=== PATIENT | female | born 1990 | race Caucasian/White ===

== ENCOUNTER 2016-09-25 15:20 | Emergency (ER) | payer BC, OTHER ==
[2016-09-25 15:25] VITALS: TEMP 97.5
[2016-09-25] MEDS ORDERED: KETOROLAC 30 MG/ML 1 ML VIAL IVP STA (15:50)
[2016-09-25] MEDS ORDERED: NITROGLYCERIN OINT 1 INCH/GM PACKET TOPICAL STA (15:50)
[2016-09-25] MEDS ORDERED: ASPIRIN 81 MG CHEW PO STA (15:50)
[2016-09-25 16:24] LABS: Basophils # (A) 0.1 k/uL (0-0.2); Basophils % (A) 1 %; CH 29.2; CHCM 35.6; Eosinophils # (A) 0.1 k/uL (0-0.7); Eosinophils % (A) 1 %; HCT 39.8 % (34.0-46.0); HDW 2.94; Luc # (Auto) 0.23; Luc % (Auto) 3; Lymphocytes # (A) 2.7 k/uL (1.0-4.8); Lymphocytes % (A) 32 %; MCH 28.9 pg (25.0-35.0); MCHC 35.1 g/dL (31.0-37.0); MCV 82.3 fL (80.0-100.0); Mean Platelet Volume 7.4; Monocytes # (A) 0.4 k/uL (0-1.0); Monocytes % (A) 5 %; Neutrophils # (A) 5.1 k/uL (1.3-7.7); Neutrophils % (A) 59 %; RBC 4.83 m/uL (3.80-5.40); RDW 13.3 % (11.5-15.5); WBC 8.6 k/uL (3.8-10.6); WBC (Perox) 8.58
[2016-09-25 16:25] VITALS: RESP 18
[2016-09-25 16:36] LABS: ALT 47 U/L (9-52); AST 26 U/L (14-36); Alkaline Phosphatase 66 U/L (38-126); Anion Gap 10 mmol/L; Blood Urea Nitrogen 7 mg/dL (7-17); Calcium 9.4 mg/dL (8.4-10.2); Carbon Dioxide 26 mmol/L (22-30); Chloride 104 mmol/L (98-107); Glucose 87 mg/dL (74-99); Magnesium 1.9 mg/dL (1.6-2.3); Non-African American GFR(MDRD) >60 (>60 ml/min/1.73 sqM); Potassium 3.8 mmol/L (3.5-5.1); Sodium 140 mmol/L (137-145); Total Bilirubin 0.6 mg/dL (0.2-1.3); Total Protein 7.4 g/dL (6.3-8.2)
[2016-09-25 16:43] LABS: INR 0.9 (<1.2); Prothrombin Time 9.5 sec (9.0-12.0)
--- NOTE | 2016-09-25 16:43 | XR ---
EXAMINATION TYPE: XR chest 2V DATE OF EXAM: 09/25/2016 COMPARISON: 02/21/2016 HISTORY: Chest pain TECHNIQUE: Frontal and lateral views of the chest are obtained. FINDINGS: Heart and mediastinum are normal. Lungs are clear. Diaphragm is normal. Bony thorax is int act. IMPRESSION: Normal chest. No change.
[2016-09-25 16:48] LABS: Creatine Kinase 85 U/L (30-135)
[2016-09-25 16:56] LABS: Partial Thromboplastin Time 19.6 sec (22.0-30.0)
[2016-09-25 17:01] LABS: Creatine Kinase MB 0.9 ng/mL (0.0-2.4); Troponin I <0.012 ng/mL (0.000-0.034)
[2016-09-25 18:22] VITALS: BP 150/82; PULSE 75
--- NOTE | 2016-09-25 18:31 | ED ---
Chest Pain HPI - General Chief Complaint: Chest Pain Stated Complaint: Chest Pain Time Seen by Provider: 09/25/16 15:43 Source: patient Mode of arrival: ambulatory Limitations: no limitations - History of Present Illness Initial Comments: This 25-year-old white female presents with a complaint of some left chest and shoulder pain. This occurred just shortly prior to arrival while at work today. She states that the pain is worse when she turns her head to the left side or moves her chest or body in certain ways. She denies any difficulty in breathing diaphoresis or palpitations. She denies any previous similar incidents. There is no modifying factors. She denies any leg pain or swelling. There is no history of DVT or PE. No previous cardiac history. - Related Data Home Medications Medication Instructions Recorded Confirmed Levothyroxine Sodium [Synthroid] 50 mcg PO QAM 11/03/13 09/25/16 Previous Rx's Medication Instructions Recorded Ibuprofen [Motrin] 800 mg PO Q8H PRN #20 tab 09/25/16 Allergies Allergy/AdvReac Type Severity Reaction Status Date / Time betaine [Betaine] Allergy Contact Verified 09/25/16 15:57 Blisters chlorhexidine Allergy Contact Verified 09/25/16 15:57 [From Hibiclens] Blisters iodine Allergy Contact Verified 09/25/16 15:57 Blisters Review of Systems ROS Statement: Those systems with pertinent positive or pertinent negative responses have been documented in the HPI. ROS Other: All systems not noted in ROS Statement are negative. Past Medical History Past Medical History: Asthma, Thyroid Disorder Additional Past Medical History / Comment(s): severe chronic diarrhea for past several years History of Any Multi-Drug Resistant Organisms: None Reported Past Surgical History: Adenoidectomy, Cholecystectomy, Ear Surgery Additional Past Surgical History / Comment(s): fistula removed rt ear, umbilical reconstruction r/t non healing surgical wound Past Anesthesia/Blood Transfusion Reactions: No Reported Reaction Past Psychological History: No Psychological Hx Reported Smoking Status: Former smoker Past Alcohol Use History: Occasional Past Drug Use History: None Reported General Exam - General Exam Comments Initial Comments: GENERAL: The patient is well nourished and well hydrated. VITAL SIGNS: Heart rate, blood pressure, respiratory rate reviewed as recorded in nurse's notes. EYES: Pupils are round and reactive. Extraocular movements are intact. No conjunctival / lid redness or swelling. ENT: No external evidence of injury, swelling, or ecchymosis. Airway is patent. Throat is clear. NECK: Nontender. No swelling or evidence of injury. No subcutaneous emphysema. Trachea is midline. No thyroid mass. HEART: Regular rate and rhythm. Good peripheral pulses. LUNGS/CHEST: Breath sounds clear and equal bilaterally. No rales, rhonchi, or wheezes. No ecchymosis, subcutaneous emphysema. There is some tenderness present into the left chest. This is more in the superior lateral side with extension into the shoulder. ABDOMEN: Abdomen soft without tenderness. No palpable masses or organomegaly. No peritoneal signs. No abdominal wall swelling or ecchymosis. EXTREMITIES: There is some mild tenderness present into the left shoulder. There is no joint swelling. Normal muscle tone and function. No thoracolumbar tenderness. NEUROLOGIC: Sensation is grossly intact. Cranial nerve exam reveals face is symmetrical, tongue is midline, speech is clear. SKIN: No abrasions or ecchymosis is noted. No induration or masses noted. PSYCHIATRIC: Alert and oriented. Appropriate behavior and judgment. Limitations: no limitations Course Vital Signs 09/25/16 09/25/16 09/25/16 15:23 16:20 17:00 Temperature 97.5 F L Pulse Rate 74 73 84 Respiratory 22 18 18 Rate Blood Pressure 158/97 150/94 148/88 O2 Sat by Pulse 99 99 96 Oximetry 09/25/16 18:00 Temperature Pulse Rate 75 Respiratory 18 Rate Blood Pressure 150/82 O2 Sat by Pulse 96 Oximetry Chest Pain MDM - MDM The patient was seen and examined. All diagnostics were reviewed. EKG shows a normal sinus rhythm with no acute ST-T wave changes noted. The CA interval is 156, QRS duration is 76, and the QTc interval is 448. The cardiac profile labs and d-dimer are all essentially within normal limits. The chest x-ray is negative. The exact cause of her symptomatology is not definitively determine but overall is felt associates musculoskeletal nature. It certainly is reproducible. It is felt as though she is stable for discharge. She understands agrees with the following disposition and leaves in no distress. Disposition Clinical Impression: Chest wall pain Disposition: HOME SELF-CARE Condition: Good Instructions: Chest Wall Pain (ED) Prescriptions: Ibuprofen [Motrin] 800 mg PO Q8H PRN #20 tab PRN Reason: Pain Referrals: Sangeeta Mendiola MD [Primary Care Provider] - 1-2 days Time of Disposition: 18:30
== END 2016-09-25 18:35 | disposition home or self-care (01) ==
LOC: EC 15:20
DX: R07.89 Other chest pain (principal); M25.512 Pain in left shoulder; E07.9 Disorder of thyroid, unspecified; Z87.891 Personal history of nicotine dependence; Z79.899 Other long term (current) drug therapy; Z91.041 Radiographic dye allergy status; Z88.8 Allergy status to other drugs, medicaments and biological substances
CPT/HCPCS: 99285 ×2; 96374 ×2; 36415; 93005; 85379; 80053; 82550; 82553; 83735; 84484; 85025; 85610; 85730; 71020; J1885

== ENCOUNTER 2017-04-26 17:28 | Emergency (ER) | payer BC ==
[2017-04-26 17:46] VITALS: RESP 18
[2017-04-26] MEDS ORDERED: ACETAMINOPHEN TAB 500 MG TAB PO STA (20:02)
[2017-04-26] MEDS ORDERED: ONDANSETRON 4 MG/2 ML VIAL IVP STA (20:02)
[2017-04-26] MEDS ORDERED: SODIUM CHLORIDE 0.9% 1,000 ML IV STA (20:02)
[2017-04-26] MEDS ORDERED: IBUPROFEN 600 MG TAB PO STA (20:02)
--- NOTE | 2017-04-26 20:22 | ED ---
General Adult HPI - General Chief complaint: Fever Stated complaint: HANDS STUCK, LEGS NUMB AND PAIN Time Seen by Provider: 04/26/17 19:54 Source: patient, RN notes reviewed Mode of arrival: ambulatory Limitations: no limitations - History of Present Illness Initial comments: 26-year-old female presents to the emergency department with a chief complaint of fever. Patient states that she woke up this morning with a fever. Patient states she had 2 drinks last night had nausea vomiting and she will as well. Patient states she also has been taking to bilateral hands as well as she's had pain and radiation down her legs. Denies any injury or trauma last night. She denies any past. She states that she just feels off and she was concerned. Never had anything like this before. Patient states is not currently having any other symptoms.Patient denies any recent shortness of breath, chest pain, back pain, abdominal pain, dysuria or hematuria, constipation or diarrhea, headaches or visual changes, or any other current symptoms. - Related Data Home Medications Medication Instructions Recorded Confirmed Citalopram Hydrobromide [CeleXA] 40 mg PO HS 04/26/17 04/26/17 Etonogestrel [Nexplanon] 1 implant SQ [id number] 04/26/17 04/26/17 Previous Rx's Medication Instructions Recorded Ciprofloxacin HCl [Cipro] 500 mg PO Q12HR #14 tablet 04/26/17 Ibuprofen [Motrin] 600 mg PO Q6HR PRN #20 tab 04/26/17 Ondansetron Odt [Zofran ODT] 4 mg PO Q8HR PRN #20 tab 04/26/17 Allergies Allergy/AdvReac Type Severity Reaction Status Date / Time betaine [Betaine] Allergy Contact Verified 04/26/17 19:23 Blisters chlorhexidine Allergy Contact Verified 04/26/17 19:23 [From Hibiclens] Blisters gluten Allergy Unknown Verified 04/26/17 19:23 sutures Allergy Unknown Uncoded 04/26/17 19:23 Review of Systems ROS Statement: Those systems with pertinent positive or pertinent negative responses have been documented in the HPI. ROS Other: All systems not noted in ROS Statement are negative. Past Medical History Past Medical History: Asthma, Thyroid Disorder Additional Past Medical History / Comment(s): severe chronic diarrhea for past several years History of Any Multi-Drug Resistant Organisms: None Reported Past Surgical History: Adenoidectomy, Appendectomy, Cholecystectomy, Ear Surgery Additional Past Surgical History / Comment(s): fistula removed rt ear, umbilical reconstruction r/t non healing surgical wound Past Anesthesia/Blood Transfusion Reactions: No Reported Reaction Past Psychological History: Anxiety, Bipolar, Depression Smoking Status: Former smoker Past Alcohol Use History: Occasional Past Drug Use History: None Reported General Exam - General Exam Comments Initial Comments: General: The patient is awake and alert, in no distress, and does not appear acutely ill. Eye: Pupils are equal, round and reactive to light, extra-ocular movements are intact; there is normal conjunctiva bilaterally. No signs of icterus. Ears, nose, mouth and throat: There are moist mucous membranes and no oral lesions. Neck: The neck is supple, there is no tenderness. Cardiovascular: There is a regular rate and rhythm. No murmur, rub or gallop is appreciated. Respiratory: Lungs are clear to auscultation, respirations are non-labored, breath sounds are equal. No wheezes, stridor, rales, or rhonchi. Gastrointestinal: Soft, non-distended, non-tender abdomen without masses or organomegaly noted. There is no rebound or guarding present. No CVA tenderness. Bowel sounds are unremarkable. Back: There is no tenderness to palpation in the midline. There is no obvious deformity. No rashes noted. Musculoskeletal: Normal ROM, no tenderness, There is no pedal edema. There is no calf tenderness or swelling. Sensation intact. Pulses equal bilaterally 2+. Neurological: CN II-XII intact, There are no obvious motor or sensory deficits. Coordination appears grossly intact. Speech is normal. Skin: Skin is warm and dry and no rashes or lesions are noted. Psychiatric: Cooperative, appropriate mood & affect, normal judgment. Limitations: no limitations Course Vital Signs 04/26/17 04/26/17 04/26/17 17:43 20:21 22:25 Temperature 101.1 F H 99.5 F Pulse Rate 116 H 112 H 96 Respiratory 18 18 18 Rate Blood Pressure 163/109 172/102 155/89 O2 Sat by Pulse 95 100 96 Oximetry Medical Decision Making - Medical Decision Making 26-year-old female presents with concern for numbness tingling to hands and feet. Associated with fever. At this time suspicion for UTI for fever along with GI-like complaints. We will put on Cipro for home. We discussed Motrin Tylenol. His numbness and tingling in hand complaints have improved drastically she now has full range of motion and states she is feeling much better. We did discuss follow-up return parameters. She stated she understood and she is in agreement this plan. She'll be discharged. - Lab Data Result diagrams: 04/26/17 20:20 04/26/17 20:20 Lab Results 04/26/17 04/26/17 04/26/17 Range/Units 18:10 20:20 20:20 WBC 15.1 H (3.8-10.6) k/uL RBC 5.52 H (3.80-5.40) m/uL Hgb 15.2 (11.4-16.0) gm/dL Hct 44.3 (34.0-46.0) % MCV 80.3 (80.0-100.0) fL MCH 27.4 (25.0-35.0) pg MCHC 34.2 (31.0-37.0) g/dL RDW 13.2 (11.5-15.5) % Plt Count 261 (150-450) k/uL Neutrophils % 88 % Lymphocytes % 8 % Monocytes % 4 % Eosinophils % 0 % Basophils % 0 % Neutrophils # 13.3 H (1.3-7.7) k/uL Lymphocytes # 1.1 (1.0-4.8) k/uL Monocytes # 0.6 (0-1.0) k/uL Eosinophils # 0.0 (0-0.7) k/uL Basophils # 0.0 (0-0.2) k/uL Sodium 142 (137-145) mmol/L Potassium 3.6 (3.5-5.1) mmol/L Chloride 104 (98-107) mmol/L Carbon Dioxide 23 (22-30) mmol/L Anion Gap 15 mmol/L BUN 17 (7-17) mg/dL Creatinine 0.50 L (0.52-1.04) mg/dL Est GFR (CKD-EPI)AfAm >90 (>60 ml/min/1.73 sqM) Est GFR (CKD-EPI)NonAf >90 (>60 ml/min/1.73 sqM) Glucose 99 (74-99) mg/dL Calcium 9.8 (8.4-10.2) mg/dL Phosphorus 3.5 (2.5-4.5) mg/dL Magnesium 1.5 L (1.6-2.3) mg/dL Total Bilirubin 1.0 (0.2-1.3) mg/dL AST 23 (14-36) U/L ALT 24 (9-52) U/L Alkaline Phosphatase 84 (38-126) U/L Total Protein 8.3 H (6.3-8.2) g/dL Albumin 4.9 (3.5-5.0) g/dL Urine Color Urine Appearance (Clear) Urine pH (5.0-8.0) Ur Specific [place] (1.001-1.035) Urine Protein (Negative) Urine Glucose (UA) (Negative) Urine Ketones (Negative) Urine Blood (Negative) Urine Nitrite (Negative) Urine Bilirubin (Negative) Urine Urobilinogen (<2.0) mg/dL Ur Leukocyte Esterase (Negative) Urine RBC (0-5) /hpf Urine WBC (0-5) /hpf Ur Squamous Epith Cells (0-4) /hpf Urine Bacteria (None) /hpf Urine Mucus (None) /hpf Urine HCG, Qual (Not Detectd) Urine Opiates Screen (NotDetected) Ur Oxycodone Screen (NotDetected) Urine Methadone Screen (NotDetected) Ur Propoxyphene Screen (NotDetected) Ur Barbiturates Screen (NotDetected) U Tricyclic Antidepress (NotDetected) Ur Phencyclidine Scrn (NotDetected) Ur Amphetamines Screen (NotDetected) U Methamphetamines Scrn (NotDetected) U Benzodiazepines Scrn (NotDetected) Urine Cocaine Screen (NotDetected) U Marijuana (THC) Screen (NotDetected) Influenza Type A RNA Not Detected (Not Detectd) Influenza Type B (PCR) Not Detected (Not Detectd) 04/26/17 04/26/17 Range/Units 20:20 20:20 WBC (3.8-10.6) k/uL RBC (3.80-5.40) m/uL Hgb (11.4-16.0) gm/dL Hct (34.0-46.0) % MCV (80.0-100.0) fL MCH (25.0-35.0) pg MCHC (31.0-37.0) g/dL RDW (11.5-15.5) % Plt Count (150-450) k/uL Neutrophils % % Lymphocytes % % Monocytes % % Eosinophils % % Basophils % % Neutrophils # (1.3-7.7) k/uL Lymphocytes # (1.0-4.8) k/uL Monocytes # (0-1.0) k/uL Eosinophils # (0-0.7) k/uL Basophils # (0-0.2) k/uL Sodium (137-145) mmol/L Potassium (3.5-5.1) mmol/L Chloride (98-107) mmol/L Carbon Dioxide (22-30) mmol/L Anion Gap mmol/L BUN (7-17) mg/dL Creatinine (0.52-1.04) mg/dL Est GFR (CKD-EPI)AfAm (>60 ml/min/1.73 sqM) Est GFR (CKD-EPI)NonAf (>60 ml/min/1.73 sqM) Glucose (74-99) mg/dL Calcium (8.4-10.2) mg/dL Phosphorus (2.5-4.5) mg/dL Magnesium (1.6-2.3) mg/dL Total Bilirubin (0.2-1.3) mg/dL AST (14-36) U/L ALT (9-52) U/L Alkaline Phosphatase (38-126) U/L Total Protein (6.3-8.2) g/dL Albumin (3.5-5.0) g/dL Urine Color Yellow Urine Appearance Cloudy H (Clear) Urine pH 6.0 (5.0-8.0) Ur Specific [place] 1.029 (1.001-1.035) Urine Protein 1+ H (Negative) Urine Glucose (UA) Negative (Negative) Urine Ketones Negative (Negative) Urine Blood Moderate H (Negative) Urine Nitrite Negative (Negative) Urine Bilirubin Negative (Negative) Urine Urobilinogen <2.0 (<2.0) mg/dL Ur Leukocyte Esterase Moderate H (Negative) Urine RBC 12 H (0-5) /hpf Urine WBC 16 H (0-5) /hpf Ur Squamous Epith Cells 13 H (0-4) /hpf Urine Bacteria Few H (None) /hpf Urine Mucus Many H (None) /hpf Urine HCG, Qual Not Detected (Not Detectd) Urine Opiates Screen Not Detected (NotDetected) Ur Oxycodone Screen Not Detected (NotDetected) Urine Methadone Screen Not Detected (NotDetected) Ur Propoxyphene Screen Not Detected (NotDetected) Ur Barbiturates Screen Not Detected (NotDetected) U Tricyclic Antidepress Not Detected (NotDetected) Ur Phencyclidine Scrn Not Detected (NotDetected) Ur Amphetamines Screen Not Detected (NotDetected) U Methamphetamines Scrn Not Detected (NotDetected) U Benzodiazepines Scrn Not Detected (NotDetected) Urine Cocaine Screen Not Detected (NotDetected) U Marijuana (THC) Screen Not Detected (NotDetected) Influenza Type A RNA (Not Detectd) Influenza Type B (PCR) (Not Detectd) - Radiology Data Radiology results: report reviewed, image reviewed Disposition Clinical Impression: Fever, UTI (urinary tract infection), Nausea & vomiting, Paresthesia Disposition: HOME SELF-CARE Condition: Stable Instructions: Paresthesia (ED), Urinary Tract Infection in Women (ED), Fever in Adults (ED) Additional Instructions: Please use medication as discussed. Please follow up with family doctor if symptoms have not improved over the next two days. Please return to the emergency room if your symptoms increase or worsen or for any other concerns. Prescriptions: Ciprofloxacin HCl [Cipro] 500 mg PO Q12HR #14 tablet Ibuprofen [Motrin] 600 mg PO Q6HR PRN #20 tab PRN Reason: Pain Ondansetron Odt [Zofran ODT] 4 mg PO Q8HR PRN #20 tab PRN Reason: Nausea Referrals: Sangeeta Mendiola MD [STAFF PHYSICIAN] - 1-2 days Time of Disposition: 22:46
[2017-04-26 20:32] LABS: Basophils % (A) 0 %; Eosinophils % (A) 0 %; HCT 44.3 % (34.0-46.0); HGB 15.2 gm/dL (11.4-16.0); Lymphocytes # (A) 1.1 k/uL (1.0-4.8); Lymphocytes % (A) 8 %; MCH 27.4 pg (25.0-35.0); MCHC 34.2 g/dL (31.0-37.0); MCV 80.3 fL (80.0-100.0); Mean Platelet Volume 7.5; Monocytes # (A) 0.6 k/uL (0-1.0); Monocytes % (A) 4 %; Neutrophils # (A) 13.3 k/uL (1.3-7.7); Neutrophils % (A) 88 %; Platelet Count 261 k/uL (150-450); RBC 5.52 m/uL (3.80-5.40); RDW 13.2 % (11.5-15.5); WBC 15.1 k/uL (3.8-10.6)
[2017-04-26 20:36] LABS: Appearance,Urine Cloudy (Clear); Bacteria,Urine Few /hpf; Bilirubin,Urine Negative (Negative); Blood,Urine Moderate (Negative); Color,Urine Yellow; Glucose,Urine (UA) Negative (Negative); Ketones,Urine Negative (Negative); Leukocyte Esterase,Urine Moderate (Negative); Mucus,Urine Many /hpf; Nitrite,Urine Negative (Negative); Protein,Urine 1+ (Negative); RBC,Urine 12 /hpf (0-5); Specific Gravity,Urine 1.029 (1.001-1.035); Squamous Epithelial Cell,Urine 13 /hpf (0-4); Urobilinogen,Urine <2.0 mg/dL (<2.0); WBC,Urine 16 /hpf (0-5)
[2017-04-26 20:41] LABS: ALT 24 U/L (9-52); AST 23 U/L (14-36); Albumin 4.9 g/dL (3.5-5.0); Alkaline Phosphatase 84 U/L (38-126); Anion Gap 15 mmol/L; Blood Urea Nitrogen 17 mg/dL (7-17); Calcium 9.8 mg/dL (8.4-10.2); Carbon Dioxide 23 mmol/L (22-30); Chloride 104 mmol/L (98-107); Glucose 99 mg/dL (74-99); Magnesium 1.5 mg/dL (1.6-2.3); Phosphorus 3.5 mg/dL (2.5-4.5); Potassium 3.6 mmol/L (3.5-5.1); Sodium 142 mmol/L (137-145); Total Protein 8.3 g/dL (6.3-8.2)
[2017-04-26 20:44] LABS: Amphetamine Screen,Urine Not Detected (NotDetected); Barbiturate Screen,Urine Not Detected (NotDetected); Benzodiazepines Screen,Urine Not Detected (NotDetected); Cocaine Screen,Urine Not Detected (NotDetected); Methadone Screen, Urine Not Detected (NotDetected); Opiate Screen,Urine Not Detected (NotDetected); Oxycodone Screen, Urine Not Detected (NotDetected); Phencyclidine Screen,Urine Not Detected (NotDetected); Tricyclic Antidepressant,Urine Not Detected (NotDetected); Urn Cannabinoid Scrn Not Detected (NotDetected)
--- NOTE | 2017-04-26 21:13 | XR ---
EXAMINATION TYPE: XR lumbar spine 2 or 3V DATE OF EXAM: 04/26/2017 CLINICAL HISTORY: Lower extremity weakness. TECHNIQUE: Frontal and lateral views of the lumbar spine were obtained. COMPARISON: None FINDINGS: There are 5 lumbar type vertebral bodies identified. The lumbar spine shows satisfactory alignment without evidence of acute fracture or dislocation. Vertebral body heights and disk space he ights are within normal limits. The overlying soft tissue appears unremarkable. Mild dextro scoliotic curvature of the lumbar spine may be positional in nature. Cholecystectomy clips are noted on the la teral view. IMPRESSION: No acute fracture or malalignment is seen in the lumbar spine.
--- NOTE | 2017-04-26 21:15 | CT ---
EXAMINATION TYPE: CT brain wo con DATE OF EXAM: 04/26/2017 COMPARISON: 12/12/2016 HISTORY: Numbness to hands and face. CT DLP: 1011.2 mGycm. Automated Exposure Control for Dose Reduction was Utilized. TECHNIQUE: CT scan of the head is performed without contrast. FINDINGS: There is no acute intracranial hemorrhage, mass effect, or midline shift identified. No suspicious extra-axial fluid collection. The ventricles and sulci are within normal limits in size. The globes are intact and the visualized sinuses are clear. IMPRESSION: No acute intracranial process.
--- NOTE | 2017-04-26 22:03 | XR ---
EXAMINATION TYPE: XR chest 2V DATE OF EXAM: 04/26/2017 COMPARISON: 12/10/2016 HISTORY: Nausea, vomiting, and chest pain TECHNIQUE: Frontal and lateral views of the chest are obtained. FINDINGS: There is no focal air space opacity, pleural effusion, or pneumothorax seen. The cardiac silhouette size is within normal limits. The osseous structures are intact. IMPRESSION: No acute cardiopulmonary process.
[2017-04-26] MEDS ORDERED: cefTRIAXone IN SWFI 1,000 MG/10 ML SYRINGE IVP STA (22:05)
[2017-04-26] MEDS ORDERED: MAGNESIUM SULFATE-D5W PMX 1 GM in DEXTROSE/WATER 1 100ML.BAG IVPB ONE (22:07)
[2017-04-26 22:27] VITALS: BP 155/89; PULSE 96; TEMP 99.5
== END 2017-04-26 23:45 | disposition home or self-care (01) ==
LOC: EC 17:28
DX: N39.0 Urinary tract infection, site not specified (principal); R11.2 Nausea with vomiting, unspecified; R20.2 Paresthesia of skin; R50.9 Fever, unspecified; F41.9 Anxiety disorder, unspecified; F31.9 Bipolar disorder, unspecified; Z87.891 Personal history of nicotine dependence; Z79.3 Long term (current) use of hormonal contraceptives; Z79.899 Other long term (current) drug therapy; Z91.048 Other nonmedicinal substance allergy status; Z88.8 Allergy status to other drugs, medicaments and biological substances
CPT/HCPCS: 36415; 80053; 83735; 84100; 85025; 81001; 81025; 80306; 87502; 72100; 71046; 70450; 99284; 96365; 96375 ×2; 96361 ×2; J2405; J0696; J3475

== ENCOUNTER 2018-05-19 13:31 | Emergency (ER) | payer BC ==
[2018-05-19 14:03] VITALS: TEMP 98.9
[2018-05-19] MEDS ORDERED: methylPREDNISolone SOD SUCCI 125 MG/2 ML VIAL IM ONE (14:40)
[2018-05-19] MEDS ORDERED: KETOROLAC 30 MG/ML 1 ML VIAL IM STA (14:40)
--- NOTE | 2018-05-19 15:36 | XR ---
EXAMINATION TYPE: XR Hip Complete LT DATE OF EXAM: 05/19/2018 CLINICAL HISTORY: Left hip pain TECHNIQUE: AP and frogleg views of the left hip are obtained. COMPARISON: None. FINDINGS: There is no acute fracture/dislocation evident in the left hip. The joint space in the le ft hip appears within normal limits. The overlying soft tissue appears unremarkable. IMPRESSION: There is no acute fracture or dislocation in the left hip.
--- NOTE | 2018-05-19 16:08 | ED ---
General Adult HPI - General Chief complaint: Extremity Injury, Lower Stated complaint: Hip Injury Time Seen by Provider: 05/19/18 14:25 Source: patient, RN notes reviewed Mode of arrival: wheelchair Limitations: no limitations - History of Present Illness Initial comments: 27-year-old female presents to the emergency department for chief complaint of left hip pain. Patient states she was sitting and went to stand up and felt a pop in her left hip. Patient states she has pain in the area now. Patient states it is painful to bend her hip or to walk on her hip. Patient denies fevers or chills. Patient denies falling or any other injuries. Patient has no other complaints at this time including shortness of breath, chest pain, abdominal pain, nausea or vomiting, headache, or visual changes. - Related Data Home Medications Medication Instructions Recorded Confirmed Citalopram Hydrobromide [CeleXA] 40 mg PO HS 04/26/17 04/26/17 Etonogestrel [Nexplanon] 1 implant SQ [id number] 04/26/17 04/26/17 Previous Rx's Medication Instructions Recorded Ciprofloxacin HCl [Cipro] 500 mg PO Q12HR #14 tablet 04/26/17 Ibuprofen [Motrin] 600 mg PO Q6HR PRN #20 tab 04/26/17 Ondansetron Odt [Zofran ODT] 4 mg PO Q8HR PRN #20 tab 04/26/17 Allergies Allergy/AdvReac Type Severity Reaction Status Date / Time betaine [Betaine] Allergy Contact Verified 05/19/18 14:03 Blisters chlorhexidine Allergy Contact Verified 05/19/18 14:03 [From Hibiclens] Blisters gluten Allergy Unknown Verified 05/19/18 14:03 sutures Allergy Unknown Uncoded 05/19/18 14:03 Review of Systems ROS Statement: Those systems with pertinent positive or pertinent negative responses have been documented in the HPI. ROS Other: All systems not noted in ROS Statement are negative. Past Medical History Past Medical History: Asthma, Thyroid Disorder Additional Past Medical History / Comment(s): severe chronic diarrhea for past several years History of Any Multi-Drug Resistant Organisms: None Reported Past Surgical History: Adenoidectomy, Appendectomy, Cholecystectomy, Ear Surgery Additional Past Surgical History / Comment(s): fistula removed rt ear, umbilical reconstruction r/t non healing surgical wound Past Anesthesia/Blood Transfusion Reactions: No Reported Reaction Past Psychological History: Anxiety, Bipolar, Depression Smoking Status: Former smoker Past Alcohol Use History: Occasional Past Drug Use History: None Reported General Exam Limitations: no limitations General appearance: alert, in no apparent distress Head exam: Present: atraumatic, normocephalic, normal inspection Eye exam: Present: normal appearance, PERRL, EOMI. Absent: scleral icterus, conjunctival injection, periorbital swelling ENT exam: Present: normal exam, mucous membranes moist Neck exam: Present: normal inspection, full ROM. Absent: tenderness, meningismus, lymphadenopathy Respiratory exam: Present: normal lung sounds bilaterally. Absent: respiratory distress, wheezes, rales, rhonchi, stridor Cardiovascular Exam: Present: regular rate, normal rhythm, normal heart sounds. Absent: systolic murmur, diastolic murmur, rubs, gallop, clicks Extremities exam: Present: normal inspection, tenderness (Generalized tenderness to the lateral aspect of the left hip), normal capillary refill (We refill less than 2 seconds, DP pulse 2+), other (Sensation intact in the left lower extremity. Patient unable to bear weight on the left hip, no ecchymosis intrusions or edema present.). Absent: full ROM (30 flexion of the left hip with 10 extension.), pedal edema, joint swelling, calf tenderness Back exam: Absent: vertebral tenderness Neurological exam: Present: alert, oriented X3, CN II-XII intact Psychiatric exam: Present: normal affect, normal mood Course Vital Signs 05/19/18 05/19/18 14:00 16:25 Temperature 98.9 F Pulse Rate 78 81 Respiratory 16 20 Rate Blood Pressure 186/105 170/100 O2 Sat by Pulse 99 96 Oximetry Medical Decision Making - Medical Decision Making 27 year old female presents for left hip pain. Patient went to stand and felt a pop in her left hip. No trauma or falls. Patient has 30 flexion of the left hip with 20 extension. Generalized tenderness noted to the lateral aspect of the left hip. Neurovascular intact. Patient unable to bear weight on the left hip. I did recommend urine before x-ray however patient refused this stating she has an IUD and is not sexually active and she would just look at the x-ray done. X-ray shows no acute fracture or dislocation. At this time possible ligamentous injury of the left hip. Patient will use crutches and follow-up with orthopedics. She'll return here if she has any worsening symptoms. Patient hypertensive in the emergency department. Likely related to pain. However patient will follow up with primary care for this. This is asymptomatic, denies any chest pain, shortness of breath, back pain, visual changes, headaches, lightheadedness. Disposition Clinical Impression: Hip pain, left Disposition: HOME SELF-CARE Condition: Good Instructions (If sedation given, give patient instructions): Hip Pain (ED) Additional Instructions: Please take Motrin and Tylenol for pain. If pain is severe take tramadol. Use crutches as needed. Follow up with primary care and orthopedics in 1-2 days. Return here to the emergency department if you have any worsening symptoms. Is patient prescribed a controlled substance at d/c from ED?: No Referrals: Dudley Sarmiento MD [STAFF PHYSICIAN] - 1-2 days Oskar Mcallister MD [STAFF PHYSICIAN] - 1-2 days Time of Disposition: 16:10
[2018-05-19] MEDS ORDERED: MORPHINE SULFATE 4 MG/ML SYRINGE IM STA (16:16)
[2018-05-19] MEDS ORDERED: traMADol 50 MG STARTER PACK 3 TAB BTL PO STA (16:17)
[2018-05-19 16:33] VITALS: BP 170/100; PULSE 81; RESP 20
== END 2018-05-19 16:42 | disposition home or self-care (01) ==
LOC: EC 13:31
DX: M25.552 Pain in left hip (principal); J45.909 Unspecified asthma, uncomplicated; E07.9 Disorder of thyroid, unspecified; F32.9 Major depressive disorder, single episode, unspecified; F41.9 Anxiety disorder, unspecified; Z87.891 Personal history of nicotine dependence; Z90.49 Acquired absence of other specified parts of digestive tract; Z98.890 Other specified postprocedural states; Z79.3 Long term (current) use of hormonal contraceptives; Z79.899 Other long term (current) drug therapy; Z88.8 Allergy status to other drugs, medicaments and biological substances; Z91.018 Allergy to other foods; Z91.048 Other nonmedicinal substance allergy status; X50.9XXA Other and unspecified overexertion or strenuous movements or postures, initial encounter
CPT/HCPCS: 73502; 99283; 96372 ×3; J2270; J2930; J1885

== ENCOUNTER 2018-08-31 15:46 | Emergency (ER) | payer BC, OTHER ==
[2018-08-31 16:42] VITALS: RESP 18
[2018-08-31] MEDS ORDERED: LABETALOL SYRINGE 5 MG/ML IVP STA (18:10)
--- NOTE | 2018-08-31 18:17 | ED ---
General Adult HPI - General Chief complaint: Recheck/Abnormal Lab/Rx Stated complaint: elevated BP Time Seen by Provider: 08/31/18 17:22 Source: patient Mode of arrival: ambulatory Limitations: no limitations - History of Present Illness Initial comments: Patient is a 27-year-old female presenting to the emergency Department with complaints of high blood pressure times today. Patient states she was in school today and they checked her blood pressure and it was in the 140s and 150s. Patient states a few other teachers checked her blood pressure and it kept going up in the 180s and then finally to 240s, so they told her to go to the ER. Patient states she recently restarted her Adipex medication yesterday after being off of that for over a month. Patient also admits to having increase in stress the last few days as her mother just recently had an aneurysm. Patient denies having fever, chills, chest pain, shortness of breath, headache, blurry vision. Patient denies any other complaints at this time. - Related Data Home Medications Medication Instructions Recorded Confirmed Phentermine HCl [Adipex-P] 37.5 mg PO DAILY 08/31/18 08/31/18 Previous Rx's Medication Instructions Recorded Hydrochlorothiazide 12.5 mg PO DAILY 14 Days #14 08/31/18 capsule Allergies Allergy/AdvReac Type Severity Reaction Status Date / Time betaine [Betaine] Allergy Contact Verified 08/31/18 17:36 Blisters chlorhexidine Allergy Contact Verified 08/31/18 17:36 [From Hibiclens] Blisters gluten Allergy Unknown Verified 08/31/18 17:36 latex Allergy CONTACT Verified 08/31/18 17:36 BLISTERS sutures Allergy Unknown Uncoded 08/31/18 16:42 Review of Systems ROS Statement: Those systems with pertinent positive or pertinent negative responses have been documented in the HPI. ROS Other: All systems not noted in ROS Statement are negative. Past Medical History Past Medical History: Asthma, Thyroid Disorder Additional Past Medical History / Comment(s): severe chronic diarrhea for past several years History of Any Multi-Drug Resistant Organisms: None Reported Past Surgical History: Adenoidectomy, Appendectomy, Cholecystectomy, Ear Surgery Additional Past Surgical History / Comment(s): fistula removed rt ear, umbilical reconstruction r/t non healing surgical wound Past Anesthesia/Blood Transfusion Reactions: No Reported Reaction Past Psychological History: Anxiety, Bipolar, Depression Smoking Status: Former smoker Past Alcohol Use History: Occasional Past Drug Use History: None Reported General Exam - General Exam Comments Initial Comments: GENERAL: Well-appearing, well-nourished and in no acute distress. HEAD: Atraumatic, normocephalic. EYES: Pupils equal round and reactive to light, extraocular movements intact, sclera anicteric, conjunctiva are normal. ENT: TMs normal, nares patent, oropharynx clear without exudates. Moist mucous membranes. NECK: Normal range of motion, supple without lymphadenopathy or JVD. LUNGS: Breath sounds clear to auscultation bilaterally and equal. No wheezes rales or rhonchi. HEART: Regular rate and rhythm without murmurs, rubs or gallops. ABDOMEN: Soft, nontender, normoactive bowel sounds. No guarding, no rebound. No masses appreciated. : Deferred EXTREMITIES: Normal range of motion, no pitting or edema. No clubbing or cyanosis. NEUROLOGICAL: Cranial nerves II through XII grossly intact. Normal speech, normal gait. PSYCH: Normal mood, normal affect. SKIN: Warm, Dry, normal turgor, no rashes or lesions noted. Limitations: no limitations Course Vital Signs 08/31/18 08/31/18 08/31/18 16:39 17:58 19:05 Temperature 98.7 F Pulse Rate 88 76 Respiratory 18 18 Rate Blood Pressure 176/115 182/108 186/113 O2 Sat by Pulse 100 97 Oximetry 08/31/18 20:28 Temperature 98 F Pulse Rate 91 Respiratory 18 Rate Blood Pressure 184/105 O2 Sat by Pulse 97 Oximetry EKG Findings - EKG Comments: EKG Findings:: Ventricular rate 74, MD interval 156, QTC 475. Normal sinus rhythm. No ST segment changes, no T-wave inversions. Similar to last EKG taken in 2017. Medical Decision Making - Medical Decision Making Patient is a 27-year-old female presents for elevated blood pressure times a day. 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 Patient admits to increased level of stress the last 3 days as her mother just recently had a aneurysm. Patient also stated that she recently restarted her Adipex-P medication yesterday after being off of it for over a month. Patient denies fever, chills, sinus of breath, cough, headache, blurry vision, vomiting. Patient's exam is unremarkable. CBC, CMP, UA are all within normal limits. Patient was given 10 mg of hydralazine. Patient's BP upon arrival was in the 170s. It did increase to the 180s before the medication was given. After an hour her BP came back down to the 170's and remained there. Pt is wanting to go home. She states she is having anxiety about missing class tomorrow. She remains asymptomatic and has an appointment with her PCP in 3 days. Patient will be given a trial of hydrochlorothiazide and will follow up with PCP as discussed. Return parameters were discussed with the patient and she verbalized understanding. Case discussed with Dr. Roe. - Lab Data Result diagrams: 08/31/18 18:20 08/31/18 18:20 Lab Results 08/31/18 08/31/18 08/31/18 Range/Units 18:20 18:20 19:25 WBC 11.2 H (3.8-10.6) k/uL RBC 4.72 (3.80-5.40) m/uL Hgb 13.4 (11.4-16.0) gm/dL Hct 38.0 (34.0-46.0) % MCV 80.4 (80.0-100.0) fL MCH 28.4 (25.0-35.0) pg MCHC 35.3 (31.0-37.0) g/dL RDW 14.2 (11.5-15.5) % Plt Count 246 (150-450) k/uL Neutrophils % 72 % Lymphocytes % 22 % Monocytes % 4 % Eosinophils % 1 % Basophils % 0 % Neutrophils # 8.0 H (1.3-7.7) k/uL Lymphocytes # 2.4 (1.0-4.8) k/uL Monocytes # 0.4 (0-1.0) k/uL Eosinophils # 0.1 (0-0.7) k/uL Basophils # 0.0 (0-0.2) k/uL Sodium 139 (137-145) mmol/L Potassium 3.3 L (3.5-5.1) mmol/L Chloride 102 (98-107) mmol/L Carbon Dioxide 25 (22-30) mmol/L Anion Gap 12 mmol/L BUN 9 (7-17) mg/dL Creatinine 0.47 L (0.52-1.04) mg/dL Est GFR (CKD-EPI)AfAm >90 (>60 ml/min/1.73 sqM) Est GFR (CKD-EPI)NonAf >90 (>60 ml/min/1.73 sqM) Glucose 81 (74-99) mg/dL Calcium 9.3 (8.4-10.2) mg/dL Total Bilirubin 0.7 (0.2-1.3) mg/dL AST 28 (14-36) U/L ALT 26 (9-52) U/L Alkaline Phosphatase 70 (38-126) U/L Total Protein 7.0 (6.3-8.2) g/dL Albumin 4.2 (3.5-5.0) g/dL Urine Color Colorless Urine Appearance Clear (Clear) Urine pH 7.0 (5.0-8.0) Ur Specific [place] 1.002 (1.001-1.035) Urine Protein Negative (Negative) Urine Glucose (UA) Negative (Negative) Urine Ketones Negative (Negative) Urine Blood Negative (Negative) Urine Nitrite Negative (Negative) Urine Bilirubin Negative (Negative) Urine Urobilinogen <2.0 (<2.0) mg/dL Ur Leukocyte Esterase Negative (Negative) Disposition Clinical Impression: Hypertension Disposition: HOME SELF-CARE Condition: Stable Instructions (If sedation given, give patient instructions): Hypertension (ED) Additional Instructions: Please return to the Emergency Department if symptoms worsen or any other concerns. Follow-up with PCP on Thursday as discussed. Prescriptions: Hydrochlorothiazide 12.5 mg PO DAILY 14 Days #14 capsule Is patient prescribed a controlled substance at d/c from ED?: No Referrals: Tree Lara MD [Primary Care Provider] - 1-2 days
[2018-08-31 18:40] LABS: Basophils % (A) 0 %; Eosinophils # (A) 0.1 k/uL (0-0.7); Eosinophils % (A) 1 %; HGB 13.4 gm/dL (11.4-16.0); Lymphocytes # (A) 2.4 k/uL (1.0-4.8); Lymphocytes % (A) 22 %; MCH 28.4 pg (25.0-35.0); MCHC 35.3 g/dL (31.0-37.0); MCV 80.4 fL (80.0-100.0); Mean Platelet Volume 7.4; Monocytes # (A) 0.4 k/uL (0-1.0); Monocytes % (A) 4 %; Neutrophils % (A) 72 %; Platelet Count 246 k/uL (150-450); RBC 4.72 m/uL (3.80-5.40); RDW 14.2 % (11.5-15.5); WBC 11.2 k/uL (3.8-10.6)
[2018-08-31 18:44] LABS: ALT 26 U/L (9-52); AST 28 U/L (14-36); African American GFR (CKD) >90 (>60 ml/min/1.73 sqM); Albumin 4.2 g/dL (3.5-5.0); Alkaline Phosphatase 70 U/L (38-126); Anion Gap 12 mmol/L; Blood Urea Nitrogen 9 mg/dL (7-17); Calcium 9.3 mg/dL (8.4-10.2); Carbon Dioxide 25 mmol/L (22-30); Chloride 102 mmol/L (98-107); Glucose 81 mg/dL (74-99); Potassium 3.3 mmol/L (3.5-5.1); Sodium 139 mmol/L (137-145); Total Bilirubin 0.7 mg/dL (0.2-1.3)
[2018-08-31] MEDS ORDERED: hydrALAZINE HCL 20 MG/ML 1 ML VIAL IVP STA (18:48)
[2018-08-31 19:31] LABS: Appearance,Urine Clear (Clear); Bilirubin,Urine Negative (Negative); Blood,Urine Negative (Negative); Color,Urine Colorless; Glucose,Urine (UA) Negative (Negative); Ketones,Urine Negative (Negative); Leukocyte Esterase,Urine Negative (Negative); Nitrite,Urine Negative (Negative); Protein,Urine Negative (Negative); Specific Gravity,Urine 1.002 (1.001-1.035); Urobilinogen,Urine <2.0 mg/dL (<2.0)
[2018-08-31 20:30] VITALS: BP 184/105; PULSE 91; TEMP 98
== END 2018-08-31 20:28 | disposition home or self-care (01) ==
LOC: EC 15:46
DX: I10 Essential (primary) hypertension (principal); F43.9 Reaction to severe stress, unspecified; F31.9 Bipolar disorder, unspecified; F41.9 Anxiety disorder, unspecified; Z87.891 Personal history of nicotine dependence; Z79.899 Other long term (current) drug therapy; Z91.018 Allergy to other foods; Z91.040 Latex allergy status; Z88.8 Allergy status to other drugs, medicaments and biological substances; Z53.8 Procedure and treatment not carried out for other reasons
CPT/HCPCS: 36415; 93005; 80053; 85025; 81003; 99283; 96374; J0360

== ENCOUNTER 2018-10-28 23:34 | Emergency (ER) | payer BC, OTHER ==
[2018-10-29] MEDS ORDERED: ASPIRIN 81 MG PO STA (00:07)
--- NOTE | 2018-10-29 00:38 | ED ---
General Adult HPI - General Chief complaint: Upper Respiratory Infection Stated complaint: L Arm Pain,Chest Pain Time Seen by Provider: 10/28/18 23:46 Source: patient Mode of arrival: wheelchair Limitations: no limitations - History of Present Illness Initial comments: Patient is a 27-year-old female presenting to emergency Department with a chief complaint of an upper respiratory infection. Patient reports she developed a productive cough with white sputum production 1 day. Patient also reports developing alternating periods of rhinorrhea and nasal congestion. Patient denies any sore throat or otalgias patient is also complaining of shortness of breath. Patient states that she has not been taking her lisinopril for the past 2 weeks due to insurance purposes. Patient reports her blood pressure typically elevates during periods of sickness. Patient is also reporting left-sided chest pressure that is radiating along the left side of her hand. Patient has any blurry vision headaches that or vomiting. Patient denies any night sweats f randell or chills. Patient denies any one-sided weakness or paresthesias. Patient is diagnosed with hypertension but does not have hypercholesterolemia. Patient does have a strong family history of early ACS. - Related Data Home Medications Medication Instructions Recorded Confirmed Phentermine HCl [Adipex-P] 37.5 mg PO DAILY 08/31/18 08/31/18 Previous Rx's Medication Instructions Recorded Hydrochlorothiazide 12.5 mg PO DAILY 14 Days #14 08/31/18 capsule Cetirizine HCl [Zyrtec] 10 mg PO DAILY #20 tab 10/29/18 Lisinopril 20 mg PO DAILY #30 tab 10/29/18 Allergies Allergy/AdvReac Type Severity Reaction Status Date / Time betaine [Betaine] Allergy Contact Verified 10/28/18 23:44 Blisters chlorhexidine Allergy Contact Verified 10/28/18 23:44 [From Hibiclens] Blisters gluten Allergy Unknown Verified 10/28/18 23:44 latex Allergy CONTACT Verified 10/28/18 23:44 BLISTERS sutures Allergy Unknown Uncoded 10/28/18 23:44 Review of Systems ROS Statement: Those systems with pertinent positive or pertinent negative responses have been documented in the HPI. ROS Other: All systems not noted in ROS Statement are negative. Past Medical History Past Medical History: Asthma, Hypertension, Thyroid Disorder Additional Past Medical History / Comment(s): severe chronic diarrhea for past several years History of Any Multi-Drug Resistant Organisms: None Reported Past Surgical History: Adenoidectomy, Appendectomy, Cholecystectomy, Ear Surgery Additional Past Surgical History / Comment(s): fistula removed rt ear, umbilical reconstruction r/t non healing surgical wound Past Anesthesia/Blood Transfusion Reactions: No Reported Reaction Past Psychological History: Anxiety, Bipolar, Depression Smoking Status: Former smoker Past Alcohol Use History: Occasional Past Drug Use History: None Reported General Exam Limitations: no limitations General appearance: alert, in no apparent distress Head exam: Present: atraumatic, normocephalic, normal inspection Eye exam: Present: normal appearance, PERRL, EOMI Pupils: Present: normal accommodation ENT exam: Present: normal exam, normal oropharynx (Sinus congestion. No frontal or maxillary sinus tenderness), mucous membranes moist, TM's normal bilaterally, normal external ear exam Neck exam: Present: normal inspection, full ROM Respiratory exam: Present: normal lung sounds bilaterally Cardiovascular Exam: Present: regular rate, normal rhythm, normal heart sounds GI/Abdominal exam: Present: soft, normal bowel sounds Extremities exam: Present: normal inspection, full ROM, normal capillary refill, other (+2 ulnar and radial pulses bilaterally. +2 dorsalis pedis and posterior tibialis bilaterally) Back exam: Present: normal inspection, full ROM Neurological exam: Present: alert, oriented X3, CN II-XII intact, normal gait, reflexes normal, other (Patient neurovascularly intact.) Psychiatric exam: Present: normal affect, normal mood Skin exam: Present: warm, intact, normal color Course Vital Signs 10/28/18 10/28/18 10/28/18 23:40 23:51 23:55 Temperature 97.9 F Pulse Rate 93 85 Respiratory 18 20 18 Rate Blood Pressure 158/122 187/132 O2 Sat by Pulse 97 97 Oximetry 10/29/18 10/29/18 10/29/18 00:51 01:24 02:40 Temperature Pulse Rate 95 90 92 Respiratory 18 18 17 Rate Blood Pressure 180/117 165/120 162/115 O2 Sat by Pulse 98 98 98 Oximetry 10/29/18 10/29/18 10/29/18 02:46 03:30 04:40 Temperature 98 F Pulse Rate 78 Respiratory 17 Rate Blood Pressure 155/110 156/97 153/101 O2 Sat by Pulse 99 Oximetry EKG Findings - EKG Comments: EKG Findings:: Normal sinus rhythm with sinus arrhythmia, prolonged QT. Ventricular rate 85, WI interval 152, QRS duration 70, QT/QTc 424/504, p-r-t axes 23 25 33 Medical Decision Making - Medical Decision Making Patient is a 27-year-old female presenting to the emergency department with a chief complaint of upper respiratory infection. Patient does report a productive cough with clear bilateral rhinorrhea and sinus congestion. In the ED patient also developed left-sided chest pain that was radiating along the left arm with no nausea vomiting or diaphoresis. Patient patient was hypertensive on initial evaluation but reports that is due to medication noncompliance because of insurance purposes. EKG is unremarkable. Troponins are negative rest of labs are unremarkable. Chest x-ray is unremarkable. Physical examination patient is not wheezing. Patient was given 325 aspirin initially. On reevaluation patient reports the pain has resolved. Patient was also given 0.1 mg of clonidine. On reevaluation the blood pressure both systolic and diastolic is decreased. A secondary troponin was obtained and it is negative. Patient has a heart score of 3. Patient will be discharged. I'm going to prescribe the patient and 30 day refill on her lisinopril. Strict retu rn parameters were thoroughly discussed the patient was understanding and agreeable. Patient advised to follow with primary care. Case discussed with physician. - Lab Data Result diagrams: 10/29/18 00:25 10/29/18 00:25 Lab Results 10/29/18 10/29/18 10/29/18 Range/Units 00:25 00:25 00:25 WBC 9.0 (3.8-10.6) k/uL RBC 5.00 (3.80-5.40) m/uL Hgb 14.2 (11.4-16.0) gm/dL Hct 40.0 (34.0-46.0) % MCV 80.1 (80.0-100.0) fL MCH 28.5 (25.0-35.0) pg MCHC 35.5 (31.0-37.0) g/dL RDW 12.8 (11.5-15.5) % Plt Count 268 (150-450) k/uL Neutrophils % 68 % Lymphocytes % 23 % Monocytes % 5 % Eosinophils % 3 % Basophils % 0 % Neutrophils # 6.2 (1.3-7.7) k/uL Lymphocytes # 2.1 (1.0-4.8) k/uL Monocytes # 0.4 (0-1.0) k/uL Eosinophils # 0.2 (0-0.7) k/uL Basophils # 0.0 (0-0.2) k/uL PT 9.7 (9.0-12.0) sec INR 0.9 (<1.2) APTT 23.4 (22.0-30.0) sec Sodium 139 (137-145) mmol/L Potassium 3.2 L (3.5-5.1) mmol/L Chloride 104 (98-107) mmol/L Carbon Dioxide 25 (22-30) mmol/L Anion Gap 10 mmol/L BUN 9 (7-17) mg/dL Creatinine 0.46 L (0.52-1.04) mg/dL Est GFR (CKD-EPI)AfAm >90 (>60 ml/min/1.73 sqM) Est GFR (CKD-EPI)NonAf >90 (>60 ml/min/1.73 sqM) Glucose 133 H (74-99) mg/dL Calcium 9.3 (8.4-10.2) mg/dL Magnesium 2.2 (1.6-2.3) mg/dL Total Bilirubin 0.8 (0.2-1.3) mg/dL AST 38 H (14-36) U/L ALT 48 (9-52) U/L Alkaline Phosphatase 72 (38-126) U/L Troponin I (0.000-0.034) ng/mL Total Protein 7.3 (6.3-8.2) g/dL Albumin 4.3 (3.5-5.0) g/dL 10/29/18 10/29/18 Range/Units 00:25 03:37 WBC (3.8-10.6) k/uL RBC (3.80-5.40) m/uL Hgb (11.4-16.0) gm/dL Hct (34.0-46.0) % MCV (80.0-100.0) fL MCH (25.0-35.0) pg MCHC (31.0-37.0) g/dL RDW (11.5-15.5) % Plt Count (150-450) k/uL Neutrophils % % Lymphocytes % % Monocytes % % Eosinophils % % Basophils % % Neutrophils # (1.3-7.7) k/uL Lymphocytes # (1.0-4.8) k/uL Monocytes # (0-1.0) k/uL Eosinophils # (0-0.7) k/uL Basophils # (0-0.2) k/uL PT (9.0-12.0) sec INR (<1.2) APTT (22.0-30.0) sec Sodium (137-145) mmol/L Potassium (3.5-5.1) mmol/L Chloride (98-107) mmol/L Carbon Dioxide (22-30) mmol/L Anion Gap mmol/L BUN (7-17) mg/dL Creatinine (0.52-1.04) mg/dL Est GFR (CKD-EPI)AfAm (>60 ml/min/1.73 sqM) Est GFR (CKD-EPI)NonAf (>60 ml/min/1.73 sqM) Glucose (74-99) mg/dL Calcium (8.4-10.2) mg/dL Magnesium (1.6-2.3) mg/dL Total Bilirubin (0.2-1.3) mg/dL AST (14-36) U/L ALT (9-52) U/L Alkaline Phosphatase (38-126) U/L Troponin I <0.012 <0.012 (0.000-0.034) ng/mL Total Protein (6.3-8.2) g/dL Albumin (3.5-5.0) g/dL Disposition Clinical Impression: Chest pain, URI (upper respiratory infection) Disposition: HOME SELF-CARE Condition: Stable Instructions (If sedation given, give patient instructions): Upper Respiratory Infection (ED) Additional Instructions: Please take prescribed medication as directed. Please follow with primary care. Please return to emergency department if symptoms worsen. Prescriptions: Lisinopril 20 mg PO DAILY #30 tab Cetirizine HCl [Zyrtec] 10 mg PO DAILY #20 tab Is patient prescribed a controlled substance at d/c from ED?: No Referrals: Tree Lara MD [Primary Care Provider] - 1-2 days Time of Disposition: 05:15
[2018-10-29 00:45] LABS: Basophils % (A) 0 %; Eosinophils # (A) 0.2 k/uL (0-0.7); Eosinophils % (A) 3 %; HGB 14.2 gm/dL (11.4-16.0); Lymphocytes # (A) 2.1 k/uL (1.0-4.8); Lymphocytes % (A) 23 %; MCH 28.5 pg (25.0-35.0); MCHC 35.5 g/dL (31.0-37.0); MCV 80.1 fL (80.0-100.0); Mean Platelet Volume 6.7; Monocytes # (A) 0.4 k/uL (0-1.0); Monocytes % (A) 5 %; Neutrophils # (A) 6.2 k/uL (1.3-7.7); Neutrophils % (A) 68 %; Platelet Count 268 k/uL (150-450); RDW 12.8 % (11.5-15.5)
[2018-10-29 00:51] LABS: INR 0.9 (<1.2); Partial Thromboplastin Time 23.4 sec (22.0-30.0); Prothrombin Time 9.7 sec (9.0-12.0)
[2018-10-29 00:54] LABS: ALT 48 U/L (9-52); AST 38 U/L (14-36); African American GFR (CKD) >90 (>60 ml/min/1.73 sqM); Albumin 4.3 g/dL (3.5-5.0); Alkaline Phosphatase 72 U/L (38-126); Anion Gap 10 mmol/L; Blood Urea Nitrogen 9 mg/dL (7-17); Calcium 9.3 mg/dL (8.4-10.2); Carbon Dioxide 25 mmol/L (22-30); Chloride 104 mmol/L (98-107); Glucose 133 mg/dL (74-99); Magnesium 2.2 mg/dL (1.6-2.3); Potassium 3.2 mmol/L (3.5-5.1); Sodium 139 mmol/L (137-145); Total Bilirubin 0.8 mg/dL (0.2-1.3); Total Protein 7.3 g/dL (6.3-8.2)
--- NOTE | 2018-10-29 00:56 | XR ---
EXAMINATION TYPE: XR chest 2V DATE OF EXAM: 10/29/2018 COMPARISON: 08/25/2018 HISTORY: Chest pain TECHNIQUE: Frontal and lateral views of the chest are obtained. FINDINGS: Heart and mediastinum are normal. Lungs are clear. Diaphragm is normal. Bony thorax appear s normal. IMPRESSION: Normal chest. No change.
[2018-10-29] MEDS ORDERED: cloNIDine HCL 0.1 MG TAB PO STA (01:09)
[2018-10-29 04:41] VITALS: TEMP 98
[2018-10-29 05:50] VITALS: BP 155/90; PULSE 67; RESP 18
== END 2018-10-29 05:51 | disposition home or self-care (01) ==
LOC: EC 23:34
DX: J06.9 Acute upper respiratory infection, unspecified (principal); R07.89 Other chest pain; I10 Essential (primary) hypertension; Z91.040 Latex allergy status; Z91.018 Allergy to other foods; Z88.8 Allergy status to other drugs, medicaments and biological substances; Z91.14 Patient's other noncompliance with medication regimen; Z87.891 Personal history of nicotine dependence
CPT/HCPCS: 36415; 71046; 80053; 83735; 84484; 85025; 85610; 85730; 93005; 99284

== ENCOUNTER 2019-03-18 23:11 | Inpatient (IN) | payer OTHER ==
[2019-03-19 00:04] LABS: Amphetamine Screen,Urine Not Detected (NotDetected); Barbiturate Screen,Urine Not Detected (NotDetected); Benzodiazepines Screen,Urine Not Detected (NotDetected); Cocaine Screen,Urine Not Detected (NotDetected); Methadone Screen, Urine Not Detected (NotDetected); Opiate Screen,Urine Not Detected (NotDetected); Oxycodone Screen, Urine Not Detected (NotDetected); Phencyclidine Screen,Urine Not Detected (NotDetected); Tricyclic Antidepressant,Urine Not Detected (NotDetected); Urn Cannabinoid Scrn Not Detected (NotDetected)
--- NOTE | 2019-03-19 00:10 | ED ---
Psych HPI - General Chief Complaint: Psychiatric Symptoms Stated Complaint: Psych Eval Time Seen by Provider: 03/18/19 23:41 Source: patient Mode of arrival: ambulatory - History of Present Illness Initial Comments: Patient is a 28-year-old female with history of depression and bipolar disorder presents emergency Department with a chief complaint of suicidal thoughts. Patient states over the last several days she has been having a hard time getting out of bed. Patient states she has not brushed her teeth or here in the last 2 days. Patient states she's had no motivation to do anything. States she used to see a psychiatrist about 2 years ago but stopped due to insurance purposes. Patient also reports taking Effexor previously but cannot continue taking her medication due to insurance purposes. Patient states that she "wants to go to sleep and never wake up". Denies any planning. Denies any homicidal thoughts or ideations. Denies any self-harm. Denies any alcohol or drinking. States she was diagnosed with hypertension and should be taking medication but has not been doing as recommended. - Related Data Home Medications Medication Instructions Recorded Confirmed Phentermine HCl [Adipex-P] 37.5 mg PO DAILY 08/31/18 08/31/18 Previous Rx's Medication Instructions Recorded Hydrochlorothiazide 12.5 mg PO DAILY 14 Days #14 08/31/18 capsule Cetirizine HCl [Zyrtec] 10 mg PO DAILY #20 tab 10/29/18 Lisinopril 20 mg PO DAILY #30 tab 10/29/18 Allergies Allergy/AdvReac Type Severity Reaction Status Date / Time betaine [Betaine] Allergy Contact Verified 03/18/19 23:20 Blisters chlorhexidine Allergy Contact Verified 03/18/19 23:20 [From Hibiclens] Blisters gluten Allergy Unknown Verified 03/18/19 23:20 latex Allergy CONTACT Verified 03/18/19 23:20 BLISTERS sutures Allergy Unknown Uncoded 03/18/19 23:20 Review of Systems ROS Statement: Those systems with pertinent positive or pertinent negative responses have been documented in the HPI. ROS Other: All systems not noted in ROS Statement are negative. Past Medical History Past Medical History: Asthma, Hypertension, Thyroid Disorder Additional Past Medical History / Comment(s): severe chronic diarrhea for past several years History of Any Multi-Drug Resistant Organisms: None Reported Past Surgical History: Adenoidectomy, Appendectomy, Cholecystectomy, Ear Surgery Additional Past Surgical History / Comment(s): fistula removed rt ear, umbilical reconstruction r/t non healing surgical wound Past Anesthesia/Blood Transfusion Reactions: No Reported Reaction Past Psychological History: Anxiety, Bipolar, Depression Smoking Status: Former smoker Past Alcohol Use History: Occasional Past Drug Use History: None Reported General Exam Limitations: no limitations General appearance: alert, in no apparent distress, obese Head exam: Present: atraumatic, normocephalic, normal inspection Eye exam: Present: normal appearance Pupils: Present: normal accommodation ENT exam: Present: normal exam Neck exam: Present: normal inspection, full ROM Respiratory exam: Present: normal lung sounds bilaterally Cardiovascular Exam: Present: regular rate, normal rhythm, normal heart sounds Extremities exam: Present: normal inspection, full ROM Back exam: Present: normal inspection, full ROM Neurological exam: Present: alert, oriented X3 Psychiatric exam: Present: normal affect, depressed Skin exam: Present: warm, intact, normal color Course Vital Signs 03/18/19 03/19/19 03/19/19 23:17 00:34 02:00 Temperature 99.0 F Pulse Rate 96 87 72 Respiratory 20 18 16 Rate Blood Pressure 207/145 198/114 191/111 O2 Sat by Pulse 97 98 98 Oximetry Medical Decision Making - Medical Decision Making Patient is a 28-year-old female with history of bipolar disorder and depression presenting to emergency Department with a chief complaint of suicidal thoughts. Physical examination is unremarkable. Patient does have hypertension and she has not been taking her medication, lisinopril. Patient has no further complaints at this time. Patient does have suicidal thoughts but no plan. No homicidal ideations. Breath alcohol is 0. Urine drug screen negative. Patient is anxious. She was given Ativan. EPS notified. Patient is not . Patient given clonidine and will be admitted for further psychiatric management. Case discussed with physician. - Lab Data Lab Results 03/18/19 03/18/19 Range/Units 23:36 23:36 Urine HCG, Qual Not Detected (Not Detectd) Urine Opiates Screen Not Detected (NotDetected) Ur Oxycodone Screen Not Detected (NotDetected) Urine Methadone Screen Not Detected (NotDetected) Ur Propoxyphene Screen Not Detected (NotDetected) Ur Barbiturates Screen Not Detected (NotDetected) U Tricyclic Antidepress Not Detected (NotDetected) Ur Phencyclidine Scrn Not Detected (NotDetected) Ur Amphetamines Screen Not Detected (NotDetected) U Methamphetamines Scrn Not Detected (NotDetected) U Benzodiazepines Scrn Not Detected (NotDetected) Urine Cocaine Screen Not Detected (NotDetected) U Marijuana (THC) Screen Not Detected (NotDetected) Disposition Clinical Impression: Acute anxiety, Depression, Suicidal ideation Disposition: ADMITTED IP TO THIS HOSP Condition: Fair Instructions (If sedation given, give patient instructions): Depression (DC) Additional Instructions: Patient will be admitted Is patient prescribed a controlled substance at d/c from ED?: No Referrals: Tree Lara MD [Primary Care Provider] - 1-2 days Time of Disposition: 03:17
[2019-03-19] MEDS ORDERED: LISINOPRIL 20 MG TAB PO STA (00:39)
[2019-03-19] MEDS ORDERED: LORazepam 1 MG TAB PO STA (01:47)
[2019-03-19] MEDS ORDERED: ACETAMINOPHEN TAB 325 MG TAB PO STA (02:22)
[2019-03-19] MEDS ORDERED: cloNIDine HCL 0.1 MG TAB PO STA (03:09)
[2019-03-19] MEDS ORDERED: ZIPRASIDONE 20 MG VIAL IM PRN (06:26)
[2019-03-19] MEDS ORDERED: MAGNESIUM HYDROXIDE 2,400 MG/10 ML CUP PO PRN (06:26)
[2019-03-19] MEDS ORDERED: MAG HYDROX/AL HYDROX/SIMETH 30 ML CUP PO PRN (06:26)
[2019-03-19] MEDS ORDERED: LORazepam 2 MG/ML INJ IM PRN (06:30)
[2019-03-19] MEDS: LISINOPRIL 20 MG TAB PO SCH (08:29)
[2019-03-19] MEDS: ACETAMINOPHEN TAB 325 MG TAB PO PRN ×3 (08:31→23:34)
[2019-03-19 09:19] LABS: Basophils # (A) 0.1 k/uL (0-0.2); Basophils % (A) 1 %; Eosinophils # (A) 0.1 k/uL (0-0.7); Eosinophils % (A) 1 %; HCT 44.2 % (34.0-46.0); HGB 14.7 gm/dL (11.4-16.0); Lymphocytes # (A) 2.4 k/uL (1.0-4.8); Lymphocytes % (A) 26 %; MCH 27.4 pg (25.0-35.0); MCHC 33.3 g/dL (31.0-37.0); MCV 82.4 fL (80.0-100.0); Monocytes # (A) 0.4 k/uL (0-1.0); Monocytes % (A) 5 %; Neutrophils # (A) 6.1 k/uL (1.3-7.7); Neutrophils % (A) 66 %; Platelet Count 265 k/uL (150-450); RBC 5.36 m/uL (3.80-5.40); RDW 12.7 % (11.5-15.5); WBC 9.2 k/uL (3.8-10.6)
[2019-03-19 09:28] LABS: ALT 22 U/L (4-34); AST 25 U/L (14-36); African American GFR (CKD) >90 (>60 ml/min/1.73 sqM); Albumin 4.5 g/dL (3.5-5.0); Alkaline Phosphatase 58 U/L (38-126); Anion Gap 12 mmol/L; Blood Urea Nitrogen 16 mg/dL (7-17); Carbon Dioxide 23 mmol/L (22-30); Chloride 100 mmol/L (98-107); Glucose 91 mg/dL (74-99); Non-African American GFR(CKD) >90 (>60 ml/min/1.73 sqM); Potassium 3.7 mmol/L (3.5-5.1); Sodium 135 mmol/L (137-145); Total Bilirubin 0.8 mg/dL (0.2-1.3); Total Protein 7.6 g/dL (6.3-8.2)
[2019-03-19] MEDS: LORazepam 1 MG TAB PO PRN ×2 (11:41→20:08)
--- NOTE | 2019-03-19 16:47 | P.CONS ---
History of Present Illness - Reason for Consult Consult date: 03/19/19 - Chief Complaint Suicidal thoughts - History of Present Illness 28-year-old female with history of depression and bipolar disorder presents emergency Department with a chief complaint of suicidal thoughts. Patient states over the last several days she has been having a hard time getting out of bed. Patient states she has not brushed her teeth or here in the last 2 days. Patient states she's had no motivation to do anything. States she used to see a psychiatrist about 2 years ago but stopped due to insurance purposes. Patient also reports taking Effexor previously but cannot continue taking her medication due to insurance purposes. Patient states that she "wants to go to sleep and ne dalia wake up". Denies any planning. Denies any homicidal thoughts or ideations. Denies any self-harm. Denies any alcohol or drinking. States she was diagnosed with hypertension and should be taking medication but has not been doing as recommended. Review of Systems REVIEW OF SYSTEMS: CONSTITUTIONAL: No fever, no malaise, no fatigue. HEENT: No recent visual problems or hearing problems. Denied any sore throat. CARDIOVASCULAR: No chest pain, orthopnea, PND, no palpitations, no syncope. PULMONARY: No shortness of breath, no cough, no hemoptysis. GASTROINTESTINAL: No diarrhea, no nausea, no vomiting, no abdominal pain. NEUROLOGICAL: No headaches, no weakness, no numbness. HEMATOLOGICAL: Denies any bleeding or petechiae. GENITOURINARY: Denies any burning micturition, frequency, or urgency. MUSCULOSKELETAL/RHEUMATOLOGICAL: Denies any joint pain, swelling, or any muscle pain. ENDOCRINE: Denies any polyuria or polydipsia. The rest of the 14-point review of systems is negative. Past Medical History Past Medical History: Asthma, Hypertension, Thyroid Disorder Additional Past Medical History / Comment(s): severe chronic diarrhea for past several years History of Any Multi-Drug Resistant Organisms: None Reported Past Surgical History: Adenoidectomy, Appendectomy, Cholecystectomy, Ear Surgery Additional Past Surgical History / Comment(s): fistula removed rt ear, umbilical reconstruction r/t non healing surgical wound Past Anesthesia/Blood Transfusion Reactions: No Reported Reaction Past Psychological History: Anxiety, Bipolar, Depression Smoking Status: Former smoker Past Alcohol Use History: Occasional Past Drug Use History: None Reported Medications and Allergies Home Medications Medication Instructions Recorded Confirmed Type Lisinopril 20 mg PO DAILY #30 tab 10/29/18 03/19/19 Rx Allergies Allergy/AdvReac Type Severity Reaction Status Date / Time betaine [Betaine] Allergy Contact Verified 03/19/19 07:11 Blisters chlorhexidine Allergy Contact Verified 03/19/19 07:11 [From Hibiclens] Blisters gluten Allergy Unknown Verified 03/19/19 07:11 latex Allergy CONTACT Verified 03/19/19 07:11 BLISTERS sutures Allergy Unknown Uncoded 03/19/19 07:11 tape Allergy Rash/Hives Uncoded 03/19/19 07:11 Physical Exam Vitals: Vital Signs Temp Pulse Pulse Resp BP BP Pulse Ox 03/19/19 07:37 97.5 F L 86 16 150/89 03/19/19 07:08 97.5 F L 86 16 150/89 96 03/19/19 06:29 80 18 130/79 98 03/19/19 04:20 157/105 03/19/19 03:53 69 18 169/100 99 03/19/19 03:16 80 18 187/110 99 03/19/19 02:00 72 16 191/111 98 03/19/19 00:34 87 18 198/114 98 03/18/19 23:17 99.0 F 96 20 207/145 97 Intake and Output 03/18/19 03/19/19 03/19/19 22:59 06:59 14:59 Other: Weight 86.183 kg 83.915 kg - Constitutional General appearance: Present: average body habitus, cooperative, no acute distress - EENT Eyes: Present: anicteric sclerae, EOMI, PERRLA, normal appearance ENT: Present: hearing grossly normal, normal oropharynx Ears: bilateral: normal - Neck Neck: Present: normal ROM. Absent: lymphadenopathy, rigidity, thyromegaly Carotids: negative: bruit present Thyroid: bilateral: normal size, negative: enlarged, nodule - Respiratory Respiratory: bilateral: CTA, negative: rales, rhonchi, wheezing - Cardiovascular Rhythm: regular Heart sounds: normal: S1, S2 Abnormal Heart Sounds: Absent: systolic murmur, diastolic murmur - Gastrointestinal General gastrointestinal: Present: normal bowel sounds, soft. Absent: distended, organomegaly, tenderness - Genitourinary Genitourinary Comment(s): deferred - Integumentary Integumentary: Present: normal turgor. Absent: jaundiced, rash, ulcer - Neurologic Neurologic: Present: CNII-XII intact. Absent: focal deficits - Musculoskeletal Musculoskeletal: Present: gait normal, strength equal bilaterally - Psychiatric Psychiatric: Present: A&O x's 3, appropriate affect, intact judgment & insight Results CBC & Chem 7: 03/19/19 08:21 02 08:21 Labs: Abnormal Lab Results - Last 24 Hours (Table) 03/19/19 Range/Units 08:21 Sodium 135 L (137-145) mmol/L Creatinine 0.50 L (0.52-1.04) mg/dL TSH 7.860 H (0.465-4.680) mIU/L Assessment and Plan Assessment: 1. Uncontrolled hypertension; patient takes lisinopril and hydrochlorothiazide at home; currently started on lisinopril 20 mg daily; we will add hydrochlorothiazide 12.5 mg daily and Catapres 0.1 mg every 6 hours when nece ssary for systolic blood pressure greater than 160 2. Seasonal ALLERGY; we will restart patient on home dose of Zyrtec 10 mg daily 3. Obesity; patient takes Adipex at home; we will hold off for now 4. Suicidal thoughts; your management DVT prophylaxis; early ambulation CODE STATUS; full code
[2019-03-19] MEDS: HYDROCHLOROTHIAZIDE 12.5 MG CAP PO SCH (17:34)
[2019-03-19] MEDS: MELATONIN 5 MG TABLET PO PRN (23:34)
[2019-03-20] MEDS: ACETAMINOPHEN TAB 325 MG TAB PO PRN ×2 (08:52→18:14)
[2019-03-20] MEDS: LORazepam 1 MG TAB PO PRN ×2 (08:52→18:13)
[2019-03-20] MEDS: HYDROCHLOROTHIAZIDE 12.5 MG CAP PO SCH (08:52)
[2019-03-20] MEDS: LISINOPRIL 20 MG TAB PO SCH (08:52)
[2019-03-20] MEDS: lamoTRIgine 25 MG TAB PO SCH (11:27)
[2019-03-20] MEDS: CITALOPRAM HYDROBROMIDE 10 MG TAB PO SCH (11:27)
--- NOTE | 2019-03-20 14:23 | P.HP ---
Psychiatric H&P - . H&P Date: 03/19/19 History & Physical: IDENTIFYING DATA: She is a 28-year-old female admitted to the psychiatric unit voluntarily. HISTORY OF PRESENT ILLNESS: She presented to the [facility] with complaints of increasing depression, irritability and thoughts of suicide. On day of admission she reportedly had an argument. She left the house and her called the [facility] nurse that she voiced that she wanted to kill herself tonight. She thought about driving her car into the [facility]. After she left home she recognized that her thinking was distorted. Although she is feeling depressed she did not want to or kill herself. She called a friend to help take care of her 6-year-old son, went home and arrange for her friend's to bring her to the hospital. She described a mood disorder beginning in early adolescence following the of her grandmother. 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 She described classic symptoms of depression including helplessness, hopelessness and worthlessness, anhedonia, anergy and impaired concentration. She also described increased irritability and withdrawal from family and friends. She admitted to history of periods of increased irritability in the absence of depression. On the episodes have been present for up to 2 weeks" characterized by increased energy, decreased need for sleep, increase in sociability, increased alcohol use and periods of unrestrained spending. The last episode occurred in June 2018. She's been treated in the past for hypomanic episodes with a combination of Lamictal and another "sedating" medication. She denied recent alcohol use. She denied use of drugs to get high, help her sleep or change mood with the exception of "occasional" marijuana. Her BAT on admission to the was 0 and UDS was negative for drugs of abuse. She described periods of increased anxiety but denied anxiety episodes suggestive of panic attack. She denied obsessions or compulsions. She denied experiencing such psychotic symptoms as hallucinations, ideas reference, paranoia etc. PAST PSYCHIATRIC HISTORY: She denied prior psychiatric hospitalizations. She believes she first felt depressed when she was 12 years old following the of her grandmother. Her primary care provider prescribed Celexa for treatment of depression when she was 18 years old. She first received mental health services through [facility] when she was approximately 22 years old. Medication treatments included Lamictal and various antidepressants primarily Celexa. PAST MEDICAL HISTORY: Guadalupe's thyroiditis ALLERGIES: Bedtime, chlorhexidine, latex SUBSTANCE USE HISTORY: She has not participated in this abuse treatment program. She denied friends and family have complained to her about her alcohol or marijuana use. FAMILY PSYCHIATRIC/SUBSTANCE USE HISTORY: Her uncles have a history of alcohol and substance use problems. 2 uncles of overdose of heroin and methamphetamine. LEGAL HISTORY: He denied SOCIAL HISTORY: She was born and raised in [place]. She graduated from high school. She has 1 older brother. She has 1 son age 6 who has an autistic disorder and oppositional defiant disorder. He has school behavioral problems. He receives mental health services. Her is employed. They have been since June 2018. 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 MENTAL STATUS EXAM: She presented as a short of moderately obese casually groomed female who was pleasant on approach. She made eye contact and attended to the interview. She had multiple tattoos on her right for him but no prominent physical abnormalities. She had a distressed facial expression. She is alert and oriented to person, place and time. She showed slight psychomotor retardation but no abnormal movements. Her speech was spontaneous with normal rate, rhythm and volume. Affect was dysphoric but stable and appropriate. She denied current suicidal ideation or wishes. She denied homicidal ideation. She acknowledged feelings of hopelessness, helplessness and worthlessness. She ruminated about the circumstances but this hospitalization but denied ideas reference, paranoid ideation, magical ideation or delusions. Her associations were abstract and her thinking was coherent, logical and goal directed. She denied hallucinations and did not appear to be responding to internal stimuli. Global impression of intellect is average. She is aware of illness and need for treatment. STRENGTHS: Good physical health, stable employment, supportive family, stable housing WEAKNESSES: Recurrent mood disorder IMPRESSION:. She is a 28-year-old female who presented with depression and suicidal ideation has been present since since she lost her job of 5 years. She has a history of a mood disorder characterized by periods of depression consistent with major depressive disorder and periods of increased irritability associated with hypomanic symptoms. She may have been terminated from her job during a hypomanic episode. She should be treated inpatient basis with combination of psychopharmacology and multimodal therapy. PRINCIPLE DIAGNOSIS: Bipolar disorder type II most recent episode depressed RECOMMENDATION: Admit to the psychiatric unit. Safety precautions. Consult medicine for initial physical exam and medical history. 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 Begin Lamictal 25 mg daily and titrated according to clinical response and tolerance. Begin citalopram 10 mg daily and titrated according to clinical response and tolerance. Encourage participation in therapeutic groups and activities. Evaluate clinical status response to treatment daily basis. Allergies Allergy/AdvReac Type Severity Reaction Status Date / Time betaine [Betaine] Allergy Contact Verified 03/19/19 07:11 Blisters chlorhexidine Allergy Contact Verified 03/19/19 07:11 [From Hibiclens] Blisters gluten Allergy Unknown Verified 03/19/19 07:11 latex Allergy CONTACT Verified 03/19/19 07:11 BLISTERS sutures Allergy Unknown Uncoded 03/19/19 07:11 tape Allergy Rash/Hives Uncoded 03/19/19 07:11 Vital Signs Temp 97.5 F L 03/19/19 07:37 Pulse 86 03/19/19 07:37 Resp 16 03/19/19 07:37 BP 150/89 03/19/19 07:37 Pulse Ox 96 03/19/19 07:08 Intake & Output 03/18/19 03/19/19 03/19/19 18:59 06:59 18:59 Weight 86.183 kg 83.915 kg Laboratory Last Values WBC 9.2 k/uL (3.8-10.6) 03/19/19 08:21 RBC 5.36 m/uL (3.80-5.40) 03/19/19 08:21 Hgb 14.7 gm/dL (11.4-16.0) 03/19/19 08:21 Hct 44.2 % (34.0-46.0) 03/19/19 08:21 MCV 82.4 fL (80.0-100.0) 03/19/19 08:21 MCH 27.4 pg (25.0-35.0) 03/19/19 08:21 MCHC 33.3 g/dL (31.0-37.0) 03/19/19 08:21 RDW 12.7 % (11.5-15.5) 03/19/19 08:21 Plt Count 265 k/uL (150-450) 03/19/19 08:21 Neutrophils % 66 % 03/19/19 08:21 Lymphocytes % 26 % 03/19/19 08:21 Monocytes % 5 % 03/19/19 08:21 Eosinophils % 1 % 03/19/19 08:21 Basophils % 1 % 03/19/19 08:21 Neutrophils # 6.1 k/uL (1.3-7.7) 03/19/19 08:21 Lymphocytes # 2.4 k/uL (1.0-4.8) 03/19/19 08:21 Monocytes # 0.4 k/uL (0-1.0) 03/19/19 08:21 Eosinophils # 0.1 k/uL (0-0.7) 03/19/19 08:21 Basophils # 0.1 k/uL (0-0.2) 03/19/19 08:21 Sodium 135 mmol/L (137-145) L 03/19/19 08:21 Potassium 3.7 mmol/L (3.5-5.1) 03/19/19 08:21 Chloride 100 mmol/L (98-107) 03/19/19 08:21 Carbon Dioxide 23 mmol/L (22-30) 03/19/19 08:21 Anion Gap 12 mmol/L 03/19/19 08:21 BUN 16 mg/dL (7-17) 03/19/19 08:21 Creatinine 0.50 mg/dL (0.52-1.04) L 03/19/19 08:21 Est GFR (CKD-EPI)AfAm >90 (>60 ml/min/1.73 sqM) 03/19/19 08:21 Est GFR (CKD-EPI)NonAf >90 (>60 ml/min/1.73 sqM) 03/19/19 08:21 Glucose 91 mg/dL (74-99) 03/19/19 08:21 Calcium 10.0 mg/dL (8.4-10.2) 03/19/19 08:21 Total Bilirubin 0.8 mg/dL (0.2-1.3) 03/19/19 08:21 AST 25 U/L (14-36) 03/19/19 08:21 ALT 22 U/L (4-34) 03/19/19 08:21 Alkaline Phosphatase 58 U/L (38-126) 03/19/19 08:21 Total Protein 7.6 g/dL (6.3-8.2) 03/19/19 08:21 Albumin 4.5 g/dL (3.5-5.0) 03/19/19 08:21 Urine HCG, Qual Not Detected (Not Detectd) 03/18/19 23:36 Urine Opiates Screen Not Detected (NotDetected) 03/18/19 23:36 Ur Oxycodone Screen Not Detected (NotDetected) 03/18/19 23:36 Urine Methadone Screen Not Detected (NotDetected) 03/18/19 23:36 Ur Propoxyphene Screen Not Detected (NotDetected) 03/18/19 23:36 Ur Barbiturates Screen Not Detected (NotDetected) 03/18/19 23:36 U Tricyclic Antidepress Not Detected (NotDetected) 03/18/19 23:36 Ur Phencyclidine Scrn Not Detected (NotDetected) 03/18/19 23:36 Ur Amphetamines Screen Not Detected (NotDetected) 03/18/19 23:36 U Methamphetamines Scrn Not Detected (NotDetected) 03/18/19 23:36 U Benzodiazepines Scrn Not Detected (NotDetected) 03/18/19 23:36 Urine Cocaine Screen Not Detected (NotDetected) 03/18/19 23:36 U Marijuana (THC) Screen Not Detected (NotDetected) 03/18/19 23:36 03/19/19 09:54 03/20/19 14:21 03/20/19 14:21
--- NOTE | 2019-03-20 14:29 | P.PN ---
Subjective Progress Note Date: 03/20/19 Principal diagnosis: Bipolar disorder type II most recent episode depressed without psychotic features I reviewed the medical record and interviewed the patient. She complained of feeling depressed. She is more distressed following the conversation with her and her father. She is frustrated that she had to explain to her how to pay bills as she has historically been the person who managed their joint account. Her son is having more behavioral problems at school. There is a meeting scheduled after school tomorrow that she will not be able to attend. Her will be at the meeting and she arrange for her son's protective services case worker to also be present. During visiting hours yesterday her father refused to accept her need for inpatient mental health treatment. During the meeting she ruminated on being depressed and not being able to "pull herself" out of the depression. Objective - Vital Signs Vital signs: Vital Signs Temp 98.4 F 03/20/19 06:54 Pulse 70 03/20/19 11:29 Resp 18 03/20/19 11:29 BP 134/78 03/20/19 11:29 Pulse Ox 96 03/19/19 07:08 Intake & Output 03/19/19 03/20/19 03/20/19 18:59 06:59 18:59 Weight 83.915 kg 84.7 kg - Exam She appeared depressed and tearful throughout the interview. She talked about her feelings of helplessness and hopelessness. She described thoughts of suicide but denied intent or plan. Her speech was spontaneous and consistent with her mood. Her thinking was goal-directed organized. She denied such psychotic symptoms as hallucinations, paranoia, ideas reference etc. - Labs CBC & Chem 7: 03/19/19 08:21 03/19/19 08:21 Assessment and Plan Assessment: She remains depressed, hopeless and continues have thoughts of suicide uncomplicated by psychosis. Plan: Continue safety precautions. Continue Lamictal 25 mg daily and Celexa 10 mg daily and titrated during clinical response and tolerance.
[2019-03-21] MEDS: ACETAMINOPHEN TAB 325 MG TAB PO PRN (00:47)
[2019-03-21] MEDS: MELATONIN 5 MG TABLET PO PRN ×2 (00:47→21:29)
[2019-03-21] MEDS: lamoTRIgine 25 MG TAB PO SCH (09:04)
[2019-03-21] MEDS: CITALOPRAM HYDROBROMIDE 10 MG TAB PO SCH (09:04)
[2019-03-21] MEDS: LISINOPRIL 20 MG TAB PO SCH (09:04)
[2019-03-21] MEDS: HYDROCHLOROTHIAZIDE 12.5 MG CAP PO SCH (09:04)
[2019-03-21] MEDS: LORazepam 1 MG TAB PO PRN ×2 (09:05→21:29)
--- NOTE | 2019-03-21 11:53 | P.PN ---
Subjective Progress Note Date: 03/21/19 Principal diagnosis: Bipolar disorder type II most recent episode depressed without psychotic features I reviewed the medical record, interviewed the patient and discuss her treatment and treatment plan during team meeting. She feels less distressed. However, she said she woke up this morning anxious feeling tremulous and had a racing heart. She took 1 mg of Ativan by mouth. She was unable to identify a cause of the anxiety and presented to the experience as occurring without cause. She denied having suicidal ideation, plan or intent. She described a positive visit with her mother. She acknowledges that her distress is related to the demands of her employment. After discharge she plans to requests assignment to "light duty". If she cannot then she will be asked to placed on contingent. 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 She is offered full-time work beginning in May. Objective - Vital Signs Vital signs: Vital Signs Temp 98.0 F 03/21/19 03:11 Pulse 106 H 03/21/19 09:05 Resp 20 03/21/19 09:05 BP 113/77 03/21/19 09:05 Pulse Ox 96 03/19/19 07:08 Intake & Output 03/20/19 03/21/19 03/21/19 18:59 06:59 18:59 Weight 84.7 kg - Exam She presented as mildly abuse, casually groomed 28-year-old female who looked older than his stated age. She made eye contact and attended the interview. She had no prominent physical disabilities. Her affect was blunted but bright. Her speech was spontaneous with normal rate, rhythm and volume. Her affect was stable and appropriate. She denied suicidal ideation or wishes. She denied homicidal ideation. Her thinking was abstract and associations were coherent and logical. She denied hallucinations and did not a ppear to be responding to internal stimuli. - Labs CBC & Chem 7: 03/19/19 08:21 03/19/19 08:21 Assessment and Plan Assessment: She is much improved from admission but continues to report moderate symptoms of anxiety Plan: Continue treatment current treatment and treatment plan. It is too soon to increase either the citalopram or the Lamictal. motion picture set worker to coordinate discharge and aftercare.
[2019-03-21 12:37] LABS: Hemoglobin A1C 4.3 % (4.0-6.0)
[2019-03-22] MEDS: LORazepam 1 MG TAB PO PRN ×2 (05:23→23:32)
[2019-03-22] MEDS: HYDROCHLOROTHIAZIDE 12.5 MG CAP PO SCH (08:45)
[2019-03-22] MEDS: CITALOPRAM HYDROBROMIDE 10 MG TAB PO SCH (08:45)
[2019-03-22] MEDS: LISINOPRIL 20 MG TAB PO SCH (08:45)
[2019-03-22] MEDS: lamoTRIgine 25 MG TAB PO SCH ×2 (08:45→21:15)
[2019-03-22] MEDS: ACETAMINOPHEN TAB 325 MG TAB PO PRN ×2 (08:47→21:14)
[2019-03-22 11:07] VITALS: BMI 36.4
[2019-03-22] MEDS ORDERED: CITALOPRAM HYDROBROMIDE 10 MG TAB PO ONE (11:07)
--- NOTE | 2019-03-22 13:37 | P.PN ---
Subjective Progress Note Date: 03/22/19 Principal diagnosis: Bipolar disorder type II most recent episode depressed without psychotic features I reviewed the medical record, interviewed the patient and discussed her carla tment and treatment plan during team meeting. She was acutely distressed today and talked about "waking up" anxious and depressed. She alleged that she has no understanding for the marked change in her mood. However, during the interview she revealed a conversation about search director from work. 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 Her continues to work. She rescheduled the parent-teacher conference for next week because she would like to be present. Objective - Vital Signs Vital signs: Vital Signs Temp 99.4 F 03/22/19 07:13 Pulse 70 03/22/19 07:13 Resp 18 03/22/19 07:13 BP 124/75 03/22/19 07:13 Pulse Ox 96 03/19/19 07:08 Intake & Output 03/21/19 03/22/19 03/22/19 18:59 06:59 18:59 Weight 84.7 kg - Exam She presented as a casually groomed 20-year-old female who is moderately obese. She was acutely distressed and cried during the interview. She made eye contact and attended to the interview. She showed decreased in psychomotor activity but no abnormal movements. His speech was spontaneous with slight increase of rate but normal volume and rhythm. Her affect was anxious, depressed and intense. She expressed vague suicidal thoughts but denied intent or plan. She ruminated about her work and finances. Her thinking was abstract and associations were coherent and logical. She denied hallucinations and did not appear to be responding to internal stimuli. - Labs CBC & Chem 7: 03/19/19 08:21 03/19/19 08:21 Assessment and Plan Assessment: She appears moderately mentally ill and mentally improve from admission. She has difficulty liking her employment issues to the changes in her mood. Plan: Increase citalopram to 20 mg daily and Lamictal to 25 mg by mouth twice a day and continue to titrate according to clinical response and tolerance. Medical documentation discharge.
[2019-03-22] MEDS: MELATONIN 5 MG TABLET PO PRN (23:32)
[2019-03-23] MEDS: LISINOPRIL 20 MG TAB PO SCH (08:17)
[2019-03-23] MEDS: CITALOPRAM HYDROBROMIDE 20 MG TAB PO SCH (08:17)
[2019-03-23] MEDS: lamoTRIgine 25 MG TAB PO SCH ×2 (08:18→20:45)
[2019-03-23] MEDS: HYDROCHLOROTHIAZIDE 12.5 MG CAP PO SCH (08:18)
--- NOTE | 2019-03-23 10:08 | P.PN ---
Subjective Visit in the mental health unit. Patient ambulating freely. Discussed suicidal ideation. Discussed that she has history of Guadalupe's hypothyroidism has not been taking medication. Also discussed problems with dysmenorrhea. Patient was on AcipHex for lobe obesity management that was discontinued. Found to be hypothyroid Synthroid 50 g initiated Objective - Vital Signs Vital signs: Vital Signs Temp 98.7 F 03/23/19 01:09 Pulse 85 03/23/19 08:15 Resp 14 03/23/19 01:09 BP 146/88 03/23/19 08:15 Pulse Ox 96 03/19/19 07:08 Intake & Output 03/22/19 03/23/19 03/23/19 18:59 06:59 18:59 Weight 84.7 kg - Constitutional General appearance: Present: mild distress - EENT Eyes: Present: PERRLA Ears: bilateral: normal - Neck Neck: Present: normal ROM Thyroid: bilateral: normal size - Respiratory Respiratory: negative: CTA - Cardiovascular Rhythm: regular - Gastrointestinal General gastrointestinal: Present: soft - Neurologic Neurologic: Present: CNII-XII intact - Musculoskeletal Musculoskeletal: Present: gait normal - Psychiatric Psychiatric: Present: A&O x's 3, appropriate affect, intact judgment & insight - Labs CBC & Chem 7: 03/19/19 08:21 03/19/19 08:21 Assessment and Plan Plan: Assessment Guadalupe's hypothyroidism Synthroid initiated Hypertension controlled History of dysmenorrhea History of asthma stable Bipolar with suicidal ideation ALLERGIC rhinitis Obesity BMI 36 Plan We'll monitor blood pressure Synthroid initiated
[2019-03-23] MEDS ORDERED: CITALOPRAM HYDROBROMIDE 10 MG TAB PO ONE (11:07)
[2019-03-23] MEDS: ACETAMINOPHEN TAB 325 MG TAB PO PRN ×2 (13:38→16:38)
--- NOTE | 2019-03-23 15:57 | P.PN ---
Subjective Progress Note Date: 03/23/19 Principal diagnosis: Bipolar disorder type II most recent episode depressed without psychotic features I reviewed the medical record, interviewed the patient and discussed her carla tment and treatment plan during team meeting. She complained of insomnia and requested a prescription of hypnotic agent. I reviewed her sleep log and she sleeping 4-6 hours per night and staff describe her as having difficulty falling asleep and waking during the night. We reviewed her history and agreed to a trial of Desyrel 50 mg at bedtime. She feels much less anxious today after speaking with her special services supervisor. He recommended a 1 week to leave after she is discharged from hospital before she returns to work. He also agreed to light duty assignment. Objective - Vital Signs Vital signs: Vital Signs Temp 98.7 F 03/23/19 01:09 Pulse 85 03/23/19 08:15 Resp 14 03/23/19 01:09 BP 146/88 03/23/19 08:15 Pulse Ox 96 03/19/19 07:08 Intake & Output 03/22/19 03/23/19 03/23/19 18:59 06:59 18:59 Weight 84.7 kg - Exam She was neatly dressed, pleasant and cooperative. She is much less anxious than yesterday. She was not restless or tremulous and did not cry during interview. Her affect was bright. Her speech was spontaneous with normal rate, rhythm and volume. She denied suicidal ideation, wishes or homicidal ideation. Her thinking was abstract and associations were coherent and logical. - Labs CBC & Chem 7: 03/19/19 08:21 03/19/19 08:21 Assessment and Plan Assessment: She is much improved from admission with marked decrease in anxiety and depressive symptoms. She has persistent problems with insomnia. Plan: Begin trazodone 50 mg at bedtime. Continue other medications as prescribed. Consider discharge on 03/24/2019.
[2019-03-23] MEDS ORDERED: traZODone HCL 50 MG TAB PO SCH (21:00)
[2019-03-24 02:22] VITALS: RESP 16; TEMP 98
[2019-03-24] MEDS ORDERED: LEVOTHYROXINE 50 MCG TAB PO SCH (06:30)
[2019-03-24 08:53] VITALS: BP 139/76; PULSE 77
[2019-03-24] MEDS: ACETAMINOPHEN TAB 325 MG TAB PO PRN (08:53)
[2019-03-24] MEDS: LISINOPRIL 20 MG TAB PO SCH (08:53)
[2019-03-24] MEDS: CITALOPRAM HYDROBROMIDE 20 MG TAB PO SCH (08:53)
[2019-03-24] MEDS: lamoTRIgine 25 MG TAB PO SCH (08:53)
[2019-03-24] MEDS: HYDROCHLOROTHIAZIDE 12.5 MG CAP PO SCH (08:53)
--- NOTE | 2019-03-24 14:54 | P.DS ---
Providers Date of admission: 03/19/19 06:21 Attending physician: Brandon Walters MD Consults: 03/19/19 06:26 Consult Physician Routine Consulting Provider: Ting Macedo Consult Reason/Comments: Medical Management Do you want consulting provider notified?: Yes, Notify in am Primary care physician: Tree Huynh Marco - Discharge Diagnosis(es) (1) Bipolar II disorder, moderate, depressed, with anxious distress Status: Chronic Priority: Medium (2) Suicidal ideation Status: Resolved Hospital Course: She is a 28-year-old female admitted to the psychiatric unit voluntarily. She presented to the with complaints of increasing depression, irritability and thoughts of suicide. On day of admission she reportedly had an argument. She left the house and her called the [facility] nurse that she voiced that she wanted to kill herself tonight. She thought about driving her car into the [facility]. After she left home she recognized that her thinking was distorted. Although she is feeling depressed she did not want to or kill herself. She called a friend to help take care of her 6-year-old son, went home and arrange for her friend's to bring her to the hospital. She described a mood disorder beginning in early adolescence following the of her grandmother. 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 She described classic symptoms of depression including helplessness, hopelessness and worthlessness, anhedonia, anergy and impaired concentration. She also described increased irritability and withdrawal from family and friends. She admitted to history of periods of increased irritability in the absence of depression. On the episodes have been present for up to 2 weeks" characterized by increased energy, decreased need for sleep, increase in sociability, increased alcohol use and periods of unrestrained spending. The last episode occurred in June 2018. She's been treated in the past for hypomanic episodes with a combination of Lamictal and another "sedating" medication. She denied recent alcohol use. She denied use of drugs to get high, help her sleep or change mood with the exception of "occasional" marijuana. Her BAT on admission to the was 0 and UDS was negative for drugs of abuse. She described periods of increased anxiety but denied anxiety episodes suggestive of panic attack. She denied obsessions or compulsions. She denied experiencing such psychotic symptoms as hallucinations, ideas reference, paranoia etc. We admitted her to the psychiatric unit under care of this feature writer. Provided a copy a biopsychosocial assessment. The instructional design consultant fashion coordinator completed initial physical exam and medical history and diagnosed with uncontrolled hypertension, seasonal ALLERGY and obesity. He recommended to restart lisinopril 20 mg daily and add hydrochlorothiazide 12.5 mg daily and Catapres 0.1 mg every 6 hours when necessary for a systolic blood pressure greater than 160. He treated the seasonal ALLERGIES with Zyrtec 10 mg daily and recommended that she discontinue the home dose of Adipex. After discussion of her history we agreed to restart treatment with a combination of Lamictal and Celexa. We titrated that dose of Lamictal to 25 mg twice a day and Celexa to 20 mg daily prior to discharge. She spoke with her vocational rehabilitation supervisor and explained her distress. She was able to get time off as well as a promise for light duty assignment. Her mood rapidly improved. At time of discharge she presented as a moderately obese 28-year-old female who was pleasant on approach. She made eye contact and attended the interview. She had no distinguishing features or prominent physical abnor malities. She had a bright facial expression. She was alert and oriented to person, place and time. She showed no abnormality of psychomotor activity. His speech was spontaneous with normal rate, rhythm and volume. Affect was bright, stable and appropriate. She denied suicidal ideation, wishes or homicidal ideation. She denied feeling hopeless, helpless or worthless. She denied expre ss ideas reference, paranoid ideation or delusions. Her thinking was abstract and associations were coherent and logical. She denied hallucinations and did not appear to be responding to internal stimuli. Patient Condition at Discharge: Stable Plan - Discharge Summary Discharge Rx Participant: No New Discharge Prescriptions: New Citalopram Hydrobromide [CeleXA] 20 mg PO DAILY 30 Days #30 tab traZODone HCL [Desyrel] 50 mg PO HS 30 Days #30 tab Hydrochlorothiazide [Hydrodiuril] 12.5 mg PO DAILY 30 Days #30 cap lamoTRIgine [LaMICtal] 25 mg PO BID 30 Days #60 tab Levothyroxine Sodium [Synthroid] 50 mcg PO DAILY@0630 30 Days #30 tab Continue Lisinopril 20 mg PO DAILY #30 tab Discharge Medication List Citalopram Hydrobromide [CeleXA] 20 mg PO DAILY 30 Days #30 tab 03/24/19 [Rx] Hydrochlorothiazide [Hydrodiuril] 12.5 mg PO DAILY 30 Days #30 cap 03/24/19 [Rx] Levothyroxine Sodium [Synthroid] 50 mcg PO DAILY@0630 30 Days #30 tab 03/24/19 [Rx] Lisinopril 20 mg PO DAILY #30 tab 03/24/19 [Rx] lamoTRIgine [LaMICtal] 25 mg PO BID 30 Days #60 tab 03/24/19 [Rx] traZODone HCL [Desyrel] 50 mg PO HS 30 Days #30 tab 03/24/19 [Rx] Follow up Appointment(s)/Referral(s): [facility] [Outside] - 03/29/19 10:30 am (walk in intake ) Tree Lara MD [Primary Care Provider] - 1-2 days Patient Instructions/Handouts: Bipolar Disorder (DC), Depression (DC), Anxiety (GEN) Activity/Diet/Wound Care/Special Instructions: Activity and diet as tolerated. Avoid the use of street drugs and alcohol. Take all medications as prescribed. When you are in need of refills on your medications please contact your medical provider and/or outpatient psychiatrist to have this done. Please go to scheduled outpatient appointment for aftercare treatment. If symptoms return or become worse, call the crisis line at and/or go to the nearest emergency room for evaluation. Discharge Disposition: HOME SELF-CARE
== END 2019-03-24 14:12 | disposition home or self-care (01) | DRG 885 ==
LOC: EC 23:11 → 3MHU 03-19 06:21
PROVIDERS: ADMIT Psychiatry & Neurology Psychiatry; ATTEND Psychiatry & Neurology Psychiatry
DX: F31.30 Bipolar disorder, current episode depressed, mild or moderate severity, unspecified (principal); R45.851 Suicidal ideations; E06.3 Autoimmune thyroiditis; E66.9 Obesity, unspecified; F41.9 Anxiety disorder, unspecified; G47.00 Insomnia, unspecified; I10 Essential (primary) hypertension; J45.909 Unspecified asthma, uncomplicated; N94.6 Dysmenorrhea, unspecified; T46.4X6A Underdosing of angiotensin-converting-enzyme inhibitors, initial encounter; Z91.128 Patient's intentional underdosing of medication regimen for other reason; Z56.0 Unemployment, unspecified; Z68.36 Body mass index [BMI] 36.0-36.9, adult; Z79.899 Other long term (current) drug therapy; Z87.891 Personal history of nicotine dependence; Z90.49 Acquired absence of other specified parts of digestive tract; Z88.8 Allergy status to other drugs, medicaments and biological substances; Z91.040 Latex allergy status
CPT/HCPCS: 80053; 80306; 81025; 82075; 83036; 84439; 84443; 85025; 99284

== ENCOUNTER 2020-04-02 16:40 | Emergency (ER) | payer MEDICAID, OTHER ==
[2020-04-02 16:56] VITALS: TEMP 98.5
[2020-04-02] MEDS ORDERED: MORPHINE SULFATE 4 MG/ML SYRINGE IV STA (17:04)
[2020-04-02] MEDS ORDERED: SODIUM CHLORIDE 0.9% 1,000 ML IV STA (17:04)
[2020-04-02] MEDS ORDERED: ONDANSETRON 4 MG/2 ML VIAL IVP STA (17:04)
--- NOTE | 2020-04-02 17:09 | ED ---
Abdominal Pain HPI - General Chief Complaint: Abdominal Pain Stated Complaint: Back/Abd Pain Time Seen by Provider: 04/02/20 16:56 Source: patient, RN notes reviewed Mode of arrival: ambulatory Limitations: no limitations - History of Present Illness Initial Comments: Patient is a 29-year-old female presents to emergency department complaining of lower abdominal pain. She noted the pain started about 3:00 this afternoon and got bed note that her boss told her to leave work and come emergency department. Noted the pain as a 7 out of 10 currently with no relief area and she denied any radiating symptoms. She noted that she has a history of an appendectomy and cholecystectomy. She denied having a history of kidney stones. She was in mild distress and pain while sitting up in bed during exam and interview. She denied any nausea or vomiting constipation diarrhea dysuria or difficulty urinating - Related Data Previous Rx's Medication Instructions Recorded Citalopram Hydrobromide [CeleXA] 20 mg PO DAILY 30 Days #30 tab 03/24/19 Levothyroxine Sodium [Synthroid] 50 mcg PO DAILY@0630 30 Days #30 03/24/19 tab hydroCHLOROthiazide [Hydrodiuril] 12.5 mg PO DAILY 30 Days #30 cap 03/24/19 lamoTRIgine [LaMICtal] 25 mg PO BID 30 Days #60 tab 03/24/19 lisinopriL 20 mg PO DAILY #30 tab 03/24/19 traZODone HCL [Desyrel] 50 mg PO HS 30 Days #30 tab 03/24/19 Allergies Allergy/AdvReac Type Severity Reaction Status Date / Time betaine [Betaine] Allergy Contact Verified 04/02/20 16:55 Blisters chlorhexidine Allergy Contact Verified 04/02/20 16:55 [From Hibiclens] Blisters gluten Allergy Unknown Verified 04/02/20 16:55 Iodinated Contrast Media Allergy Rash/Hives Verified 04/02/20 19:33 latex Allergy CONTACT Verified 04/02/20 16:55 BLISTERS sutures Allergy Unknown Uncoded 04/02/20 16:55 tape Allergy Rash/Hives Uncoded 04/02/20 16:55 Review of Systems ROS Statement: Those systems with pertinent positive or pertinent negative responses have been documented in the HPI. ROS Other: All systems not noted in ROS Statement are negative. Past Medical History Past Medical History: Asthma, Hypertension, Thyroid Disorder Additional Past Medical History / Comment(s): severe chronic diarrhea for past several years History of Any Multi-Drug Resistant Organisms: None Reported Past Surgical History: Adenoidectomy, Appendectomy, Cholecystectomy, Ear Surgery Additional Past Surgical History / Comment(s): fistula removed rt ear, umbilical reconstruction r/t non healing surgical wound Past Anesthesia/Blood Transfusion Reactions: No Reported Reaction Past Psychological History: Anxiety, Bipolar, Depression Smoking Status: Never smoker Past Alcohol Use History: Occasional Past Drug Use History: Marijuana General Exam Limitations: no limitations General appearance: alert, in no apparent distress, obese Head exam: Present: atraumatic, normocephalic, normal inspection Eye exam: Present: normal appearance, PERRL, EOMI. Absent: scleral icterus, conjunctival injection, periorbital swelling ENT exam: Present: normal exam, mucous membranes moist Neck exam: Present: normal inspection. Absent: tenderness, meningismus, ly mphadenopathy Respiratory exam: Present: normal lung sounds bilaterally. Absent: respiratory distress, wheezes, rales, rhonchi, stridor Cardiovascular Exam: Present: regular rate, normal rhythm, normal heart sounds. Absent: systolic murmur, diastolic murmur, rubs, gallop, clicks GI/Abdominal exam: Present: soft, tenderness (Lower abdominal suprapubic and right lower quadrant mostly.), hypoactive bowel sounds. Absent: distended, guarding, rebound, rigid Extremities exam: Present: normal inspection, full ROM, normal capillary refill. Absent: tenderness, pedal edema, joint swelling, calf tenderness Neurological exam: Present: alert, oriented X3, CN II-XII intact Psychiatric exam: Present: normal affect, normal mood Skin exam: Present: warm, dry, intact, normal color. Absent: rash Course Vital Signs 04/02/20 04/02/20 16:51 20:34 Temperature 98.5 F Pulse Rate 83 82 Respiratory 18 16 Rate Blood Pressure 186/141 182/114 O2 Sat by Pulse 99 98 Oximetry Medical Decision Making - Medical Decision Making 29-year-old female complaining of abdominal pain. She is status post appendectomy and cholecystectomy. Labs, CT of the abdomen and pelvis, 4 mg of morphine, 4 mg of Zofran, 1 L of normal saline ordered for bolus. Lisinopril 20 mg, hydrochlorothiazide 12.5 mg ordered and given, due to patient forgetting blood pressure medication this morning. Labs showed mild hypokalemia, 20 mEq given orally. Case discussed with Dr. Emmanuel, was typed patient to discharge home with follow- up primary care. - Lab Data Result diagrams: 04/02/20 17:40 04/02/20 17:40 Lab Results 04/02/20 04/02/20 04/02/20 Range/Units 17:40 17:40 Unknown WBC 8.8 (3.8-10.6) k/uL RBC 4.74 (3.80-5.40) m/uL Hgb 13.8 (11.4-16.0) gm/dL Hct 39.6 (34.0-46.0) % MCV 83.6 (80.0-100.0) fL MCH 29.1 (25.0-35.0) pg MCHC 34.8 (31.0-37.0) g/dL RDW 12.9 (11.5-15.5) % Plt Count 225 (150-450) k/uL MPV 7.0 Neutrophils % 67 % Lymphocytes % 25 % Monocytes % 4 % Eosinophils % 3 % Basophils % 0 % Neutrophils # 5.9 (1.3-7.7) k/uL Lymphocytes # 2.2 (1.0-4.8) k/uL Monocytes # 0.3 (0-1.0) k/uL Eosinophils # 0.2 (0-0.7) k/uL Basophils # 0.0 (0-0.2) k/uL Sodium 135 L (137-145) mmol/L Potassium 3.1 L (3.5-5.1) mmol/L Chloride 102 (98-107) mmol/L Carbon Dioxide 24 (22-30) mmol/L Anion Gap 9 mmol/L BUN 12 (7-17) mg/dL Creatinine 0.58 (0.52-1.04) mg/dL Est GFR (CKD-EPI)AfAm >90 (>60 ml/min/1.73 sqM) Est GFR (CKD-EPI)NonAf >90 (>60 ml/min/1.73 sqM) Glucose 131 H (74-99) mg/dL Calcium 9.4 (8.4-10.2) mg/dL Total Bilirubin 0.5 (0.2-1.3) mg/dL AST 21 (14-36) U/L ALT 24 (4-34) U/L Alkaline Phosphatase 66 (38-126) U/L Total Protein 6.8 (6.3-8.2) g/dL Albumin 4.1 (3.5-5.0) g/dL Amylase 53 (30-110) U/L Lipase 92 (23-300) U/L Urine Color Yellow Urine Appearance Clear (Clear) Urine pH 5.0 (5.0-8.0) Ur Specific [place] 1.021 (1.001-1.035) Urine Protein Negative (Negative) Urine Glucose (UA) Negative (Negative) Urine Ketones Negative (Negative) Urine Blood Trace H (Negative) Urine Nitrite Negative (Negative) Urine Bilirubin Negative (Negative) Urine Urobilinogen <2.0 (<2.0) mg/dL Ur Leukocyte Esterase Small H (Negative) Urine RBC 1 (0-5) /hpf Urine WBC 1 (0-5) /hpf Ur Squamous Epith Cells 5 H (0-4) /hpf Urine Mucus Occasional H (None) /hpf Urine HCG, Qual (Not Detectd) 04/02/20 Range/Units Unknown WBC (3.8-10.6) k/uL RBC (3.80-5.40) m/uL Hgb (11.4-16.0) gm/dL Hct (34.0-46.0) % MCV (80.0-100.0) fL MCH (25.0-35.0) pg MCHC (31.0-37.0) g/dL RDW (11.5-15.5) % Plt Count (150-450) k/uL MPV Neutrophils % % Lymphocytes % % Monocytes % % Eosinophils % % Basophils % % Neutrophils # (1.3-7.7) k/uL Lymphocytes # (1.0-4.8) k/uL Monocytes # (0-1.0) k/uL Eosinophils # (0-0.7) k/uL Basophils # (0-0.2) k/uL Sodium (137-145) mmol/L Potassium (3.5-5.1) mmol/L Chloride (98-107) mmol/L Carbon Dioxide (22-30) mmol/L Anion Gap mmol/L BUN (7-17) mg/dL Creatinine (0.52-1.04) mg/dL Est GFR (CKD-EPI)AfAm (>60 ml/min/1.73 sqM) Est GFR (CKD-EPI)NonAf (>60 ml/min/1.73 sqM) Glucose (74-99) mg/dL Calcium (8.4-10.2) mg/dL Total Bilirubin (0.2-1.3) mg/dL AST (14-36) U/L ALT (4-34) U/L Alkaline Phosphatase (38-126) U/L Total Protein (6.3-8.2) g/dL Albumin (3.5-5.0) g/dL Amylase (30-110) U/L Lipase (23-300) U/L Urine Color Urine Appearance (Clear) Urine pH (5.0-8.0) Ur Specific [place] (1.001-1.035) Urine Protein (Negative) Urine Glucose (UA) (Negative) Urine Ketones (Negative) Urine Blood (Negative) Urine Nitrite (Negative) Urine Bilirubin (Negative) Urine Urobilinogen (<2.0) mg/dL Ur Leukocyte Esterase (Negative) Urine RBC (0-5) /hpf Urine WBC (0-5) /hpf Ur Squamous Epith Cells (0-4) /hpf Urine Mucus (None) /hpf Urine HCG, Qual Not Detected (Not Detectd) - Radiology Data Radiology results: report reviewed, image reviewed CT of abdomen and pelvis:. No acute abnormality. Incidental 2.6 sonometer benign-appearing right ovarian cyst. Disposition Clinical Impression: Ovarian cyst, Abdominal pain Disposition: HOME SELF-CARE Condition: Stable Instructions (If sedation given, give patient instructions): Abdominal Pain (ED), Ovarian Cyst (ED) Additional Instructions: Please return to the Emergency Department if symptoms worsen or any other concerns. Follow-up with primary care 1-2 days. Follow-up with DIGITAL STRATEGIST as soon as possible. Continue to take at home medications as prescribed. Take [id number] pain medications as needed for management. Is patient prescribed a controlled substance at d/c from ED?: No Referrals: Tree Lara MD [Primary Care Provider] - 1-2 days Time of Disposition: 20:36
[2020-04-02] MEDS ORDERED: LISINOPRIL-HCTZ 20-12.5 MG 1 EACH TAB PO STA (17:34)
[2020-04-02 17:51] LABS: Basophils % (A) 0 %; Eosinophils # (A) 0.2 k/uL (0-0.7); Eosinophils % (A) 3 %; HCT 39.6 % (34.0-46.0); HGB 13.8 gm/dL (11.4-16.0); Lymphocytes # (A) 2.2 k/uL (1.0-4.8); Lymphocytes % (A) 25 %; MCH 29.1 pg (25.0-35.0); MCHC 34.8 g/dL (31.0-37.0); MCV 83.6 fL (80.0-100.0); Monocytes # (A) 0.3 k/uL (0-1.0); Monocytes % (A) 4 %; Neutrophils # (A) 5.9 k/uL (1.3-7.7); Neutrophils % (A) 67 %; Platelet Count 225 k/uL (150-450); RBC 4.74 m/uL (3.80-5.40); RDW 12.9 % (11.5-15.5); WBC 8.8 k/uL (3.8-10.6)
[2020-04-02 18:00] LABS: Appearance,Urine Clear (Clear); Bilirubin,Urine Negative (Negative); Blood,Urine Trace (Negative); Color,Urine Yellow; Glucose,Urine (UA) Negative (Negative); Ketones,Urine Negative (Negative); Leukocyte Esterase,Urine Small (Negative); Mucus,Urine Occasional /hpf; Nitrite,Urine Negative (Negative); Protein,Urine Negative (Negative); RBC,Urine 1 /hpf (0-5); Specific Gravity,Urine 1.021 (1.001-1.035); Squamous Epithelial Cell,Urine 5 /hpf (0-4); Urobilinogen,Urine <2.0 mg/dL (<2.0); WBC,Urine 1 /hpf (0-5)
[2020-04-02 18:00] LABS: ALT 24 U/L (4-34); AST 21 U/L (14-36); African American GFR (CKD) >90 (>60 ml/min/1.73 sqM); Albumin 4.1 g/dL (3.5-5.0); Alkaline Phosphatase 66 U/L (38-126); Amylase 53 U/L (30-110); Anion Gap 9 mmol/L; Blood Urea Nitrogen 12 mg/dL (7-17); Calcium 9.4 mg/dL (8.4-10.2); Carbon Dioxide 24 mmol/L (22-30); Chloride 102 mmol/L (98-107); Glucose 131 mg/dL (74-99); Lipase 92 U/L (23-300); Non-African American GFR(CKD) >90 (>60 ml/min/1.73 sqM); Sodium 135 mmol/L (137-145); Total Bilirubin 0.5 mg/dL (0.2-1.3); Total Protein 6.8 g/dL (6.3-8.2)
[2020-04-02] MEDS ORDERED: methylPREDNISolone SOD SUCCI 125 MG/2 ML VIAL IV ONE (18:12)
[2020-04-02] MEDS ORDERED: FAMOTIDINE 20 MG/2 ML VIAL IV ONE (18:12)
[2020-04-02] MEDS ORDERED: diphenhydrAMINE 50 MG/ML 1 ML VIAL IVP ONE (18:12)
[2020-04-02 18:14] LABS: Potassium 3.1 mmol/L (3.5-5.1)
[2020-04-02] MEDS ORDERED: POTASSIUM CHLORIDE ER 20 MEQ TAB.ER PO STA (18:41)
--- NOTE | 2020-04-02 19:44 | CT ---
EXAMINATION TYPE: CT abdomen pelvis w con DATE OF EXAM: 04/02/2020 COMPARISON: 09/09/2011. HISTORY: Generalized abdominal and pelvic pain. CT DLP: 1766.9 mGycm Automated exposure control for dose reduction was used. TECHNIQUE: Helical acquisition of images was performed from the lung bases through the pelvis. CONTRAST: Performed without Oral Contrast and with IV Contrast, patient injected with 100ml mL of Isovue 300. FINDINGS: LUNG BASES: No significant abnormality is appreciated. LIVER/GB: No significant abnormality is appreciated. Cholecystectomy. PANCREAS: No significant abnormality is seen. SPLEEN: No significant abnormality is seen. ADRENALS: No significant abnormality is seen. KIDNEYS: No significant abnormality is seen. FREE AIR: No free air is visualized. RETROPERITONEAL ADENOPATHY: None visualized REPRODUCTIVE ORGANS: 2.6 cm benign-appearing right ovarian cyst. Intrauterine device is in place. URINARY BLADDER: No significant abnormality is seen. PELVIC ADENOPATHY: None visualized. OSSEOUS STRUCTURES: No significant abnormality is seen. BOWEL: No significant abnormality is seen. OTHER: None. IMPRESSION: NO ACUTE ABNORMALITY. INCIDENTAL 2.6 CM BENIGN-APPEARING RIGHT OVARIAN CYST.
[2020-04-02 20:35] VITALS: BP 182/114; PULSE 82; RESP 16
== END 2020-04-02 20:50 | disposition home or self-care (01) ==
LOC: EC 16:40
DX: N83.201 Unspecified ovarian cyst, right side (principal); Z88.8 Allergy status to other drugs, medicaments and biological substances; Z90.49 Acquired absence of other specified parts of digestive tract; Z91.040 Latex allergy status; Z91.041 Radiographic dye allergy status; Z91.048 Other nonmedicinal substance allergy status; Z91.018 Allergy to other foods
CPT/HCPCS: 36415; 80053; 82150; 83690; 85025; 81001; 81025; 74177; 99284; 96374; 96375 ×4; 96361 ×2; J2270; J1200; J2930; J2405; Q9967

== ENCOUNTER 2020-05-22 16:33 | Emergency (ER) | payer OTHER ==
[2020-05-22 17:00] VITALS: BP 129/80; PULSE 68; RESP 20; TEMP 97.9
[2020-05-22] MEDS ORDERED: KETOROLAC 15 MG/ML 1 ML VIAL IM STA (19:22)
--- NOTE | 2020-05-22 19:22 | ED ---
General Adult HPI - General Chief complaint: Headache Stated complaint: Headache Time Seen by Provider: 05/22/20 19:08 Source: patient, RN notes reviewed Mode of arrival: ambulatory Limitations: no limitations - History of Present Illness Initial comments: 29-year-old white female patient presents to the emergency room ambulatory with a steady gait, complaints of left ear pain and frontal headache for 2 days. Patient states pain is throbbing in nature notices it worse when her blood pressure meds wear off. Patient has a history of fistula surgery on the right ear at age 7. Surgical history includes appendectomy and cholecystectomy. Patient has history of asthma, hypertension, hypothyroid. Patient states notices the pain worse with palpation of the tragus and down left side of neck. Patient admits to having problems with her TMJ. Patient denies any nausea, vomiting, diarrhea, fever or sick contacts. -: days(s) (2) Location: head (left ear and frontal headache) Severity scale (1-10): 8 Quality: other (throbbing) Consistency: constant Improves with: none Associated Symptoms: denies other symptoms Treatments Prior to Arrival: none - Related Data Previous Rx's Medication Instructions Recorded Citalopram Hydrobromide [CeleXA] 20 mg PO DAILY 30 Days #30 tab 03/24/19 Levothyroxine Sodium [Synthroid] 50 mcg PO DAILY@0630 30 Days #30 03/24/19 tab hydroCHLOROthiazide [Hydrodiuril] 12.5 mg PO DAILY 30 Days #30 cap 03/24/19 lamoTRIgine [LaMICtal] 25 mg PO BID 30 Days #60 tab 03/24/19 lisinopriL 20 mg PO DAILY #30 tab 03/24/19 traZODone HCL [Desyrel] 50 mg PO HS 30 Days #30 tab 03/24/19 Cyclobenzaprine [Flexeril] 10 mg PO TID PRN #15 tab 05/22/20 Allergies Allergy/AdvReac Type Severity Reaction Status Date / Time betaine [Betaine] Allergy Contact Verified 05/22/20 16:59 Blisters chlorhexidine Allergy Contact Verified 05/22/20 16:59 [From Hibiclens] Blisters gluten Allergy Unknown Verified 05/22/20 16:59 Iodinated Contrast Media Allergy Rash/Hives Verified 05/22/20 16:59 latex Allergy CONTACT Verified 05/22/20 16:59 BLISTERS sutures Allergy Unknown Uncoded 05/22/20 16:59 tape Allergy Rash/Hives Uncoded 05/22/20 16:59 Review of Systems ROS Statement: Those systems with pertinent positive or pertinent negative responses have been documented in the HPI. ROS Other: All systems not noted in ROS Statement are negative. Past Medical History Past Medical History: Asthma, Hypertension, Thyroid Disorder Additional Past Medical History / Comment(s): severe chronic diarrhea for past several years History of Any Multi-Drug Resistant Organisms: None Reported Past Surgical History: Appendectomy, Cholecystectomy, Ear Surgery Additional Past Surgical History / Comment(s): fistula removed rt ear, umbilical reconstruction r/t non healing surgical wound Past Anesthesia/Blood Transfusion Reactions: No Reported Reaction Past Psychological History: Anxiety, Bipolar, Depression Smoking Status: Never smoker, Vaper Past Alcohol Use History: Occasional Past Drug Use History: Marijuana General Exam Limitations: no limitations General appearance: alert, in no apparent distress Head exam: Present: atraumatic, normocephalic, normal inspection Eye exam: Present: normal appearance, PERRL, EOMI. Absent: scleral icterus, conjunctival injection, periorbital swelling ENT exam: Present: normal exam, mucous membranes moist, TM's normal bilaterally, normal external ear exam Neck exam: Present: normal inspection, full ROM. Absent: tenderness, meningismus, lymphadenopathy Respiratory exam: Present: normal lung sounds bilaterally. Absent: respiratory distress, wheezes, rales, rhonchi, stridor, decreased breath sounds Cardiovascular Exam: Present: regular rate, normal rhythm, normal heart sounds. Absent: systolic murmur, diastolic murmur, rubs, gallop, clicks GI/Abdominal exam: Present: soft, normal bowel sounds. Absent: distended, tenderness, guarding, rebound, rigid Neurological exam: Present: alert, oriented X3, CN II-XII intact Psychiatric exam: Present: normal affect, normal mood Skin exam: Present: warm, dry, intact, normal color. Absent: rash Course Vital Signs 05/22/20 16:56 Temperature 97.9 F Pulse Rate 68 Respiratory 20 Rate Blood Pressure 129/80 O2 Sat by Pulse 97 Oximetry Medical Decision Making - Medical Decision Making Patient did report some relief with Toradol injection. Does state that this pain does feel like her TMJ. Bilateral tympanic membranes are clear, patient without fever. spoke with patient about discharge with prescription for Flexeril and Tylenol OTC for pain and patient agreeable to this plan and will follow up with primary care doctor. Also discussed case with Dr. Hercules who was agreeable to this plan of care. Disposition Clinical Impression: TMJ (temporomandibular joint disorder) Disposition: HOME SELF-CARE Condition: Good Instructions (If sedation given, give patient instructions): Acute Headache (ED), Temporomandibular Disorder (ED) Additional Instructions: Take Tylenol [id number] for pain, take Flexeril as prescribed prescribed for TMJ pain. Follow-up with the primary care doctor this week. Prescriptions: Cyclobenzaprine [Flexeril] 10 mg PO TID PRN #15 tab PRN Reason: Muscle Spasm Is patient prescribed a controlled substance at d/c from ED?: No Referrals: Tree Lara MD [Primary Care Provider] - 1-2 days Time of Disposition: 20:49
== END 2020-05-22 21:12 | disposition home or self-care (01) ==
LOC: EC 16:33
DX: M26.609 Unspecified temporomandibular joint disorder, unspecified side (principal); M54.2 Cervicalgia; R26.9 Unspecified abnormalities of gait and mobility; J45.909 Unspecified asthma, uncomplicated; I10 Essential (primary) hypertension; E03.9 Hypothyroidism, unspecified; F41.9 Anxiety disorder, unspecified; F32.9 Major depressive disorder, single episode, unspecified; F12.90 Cannabis use, unspecified, uncomplicated; Z79.890 Hormone replacement therapy
CPT/HCPCS: 99283; 96372; J1885

== ENCOUNTER 2020-07-30 20:13 | Emergency (ER) | payer OTHER ==
[2020-07-30 20:32] VITALS: BP 162/106; PULSE 78; RESP 18; TEMP 97.9
[2020-07-30] MEDS ORDERED: KETOROLAC 15 MG/ML 1 ML VIAL IM STA (21:03)
--- NOTE | 2020-07-30 21:35 | XR ---
EXAMINATION TYPE: XR ribs RT w pa chest xray DATE OF EXAM: 07/30/2020 COMPARISON: NONE HISTORY: Pain TECHNIQUE: 5 views FINDINGS: Heart and mediastinum are normal. Lungs are clear. There is no pleural effusion or pneumoth orax. The right ribs appear intact. IMPRESSION: Normal chest. Normal right ribs. No fracture seen.
[2020-07-30] MEDS ORDERED: MORPHINE SULFATE 4 MG/ML SYRINGE IM STA (21:50)
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
== END 2020-07-30 22:57 | disposition home or self-care (01) ==
LOC: EC 20:13
DX: R07.81 Pleurodynia (principal); I10 Essential (primary) hypertension; J45.909 Unspecified asthma, uncomplicated; F31.9 Bipolar disorder, unspecified; F41.9 Anxiety disorder, unspecified; F12.90 Cannabis use, unspecified, uncomplicated
CPT/HCPCS: 71101; 99283; 96372 ×2; J2270; J1885

== ENCOUNTER 2021-06-30 14:18 | Emergency (ER) | payer OTHER ==
[2021-06-30 14:24] VITALS: RESP 16; TEMP 98.1
[2021-06-30] MEDS ORDERED: SODIUM CHLORIDE 0.9% 1,000 ML IV STA (14:38)
[2021-06-30] MEDS ORDERED: ONDANSETRON 4 MG/2 ML VIAL IVP STA (14:38)
[2021-06-30] MEDS ORDERED: PANTOPRAZOLE 40 MG/10 ML VIAL IVP STA (14:38)
--- NOTE | 2021-06-30 14:56 | ED ---
Abdominal Pain HPI - General Chief Complaint: Abdominal Pain Stated Complaint: Abd pain,Chest pain Time Seen by Provider: 06/30/21 14:26 Source: patient, RN notes reviewed Mode of arrival: ambulatory Limitations: no limitations - History of Present Illness Initial Comments: This is a 30-year-old female who presents to the emergency department for epigastric pain and burning. She states that when she was eating at work today, she experienced significant pain and some burning in the epigastric region. She does have a history of GERD during . States that the pain radiates up into her chest. She also reports pain in her left ear. She did have dry heaves with the pain. Denies any fevers, chills, sore throat, cough, dyspnea, palpitations, diarrhea, back pain, or headaches. MD Complaint: abdominal pain Location: epigastric Radiation: chest Quality: sharp, burning - Related Data Previous Rx's Medication Instructions Recorded Citalopram Hydrobromide [CeleXA] 20 mg PO DAILY 30 Days #30 tab 03/24/19 Levothyroxine Sodium [Synthroid] 50 mcg PO DAILY@0630 30 Days #30 03/24/19 tab hydroCHLOROthiazide [Hydrodiuril] 12.5 mg PO DAILY 30 Days #30 cap 03/24/19 lamoTRIgine [LaMICtal] 25 mg PO BID 30 Days #60 tab 03/24/19 lisinopriL 20 mg PO DAILY #30 tab 03/24/19 traZODone HCL [Desyrel] 50 mg PO HS 30 Days #30 tab 03/24/19 Cyclobenzaprine [Flexeril] 10 mg PO TID PRN #15 tab 05/22/20 Amoxicillin 875 mg PO Q12HR 5 Days #10 tablet 06/30/21 Famotidine 40 mg PO HS #28 tab 06/30/21 Ofloxacin 0.3% Otic Soln [Floxin 10 drops BOTH EARS QAM 7 Days #10 06/30/21 0.3% Otic Soln] ml Allergies Allergy/AdvReac Type Severity Reaction Status Date / Time betaine [Betaine] Allergy Contact Verified 06/30/21 14:24 Blisters chlorhexidine Allergy Contact Verified 06/30/21 14:24 [From Hibiclens] Blisters gluten Allergy Unknown Verified 06/30/21 14:24 Iodinated Contrast Media Allergy Rash/Hives Verified 06/30/21 14:24 latex Allergy CONTACT Verified 06/30/21 14:24 BLISTERS sutures Allergy Unknown Uncoded 06/30/21 14:24 tape Allergy Rash/Hives Uncoded 06/30/21 14:24 Review of Systems ROS Statement: Those systems with pertinent positive or pertinent negative responses have been documented in the HPI. ROS Other: All systems not noted in ROS Statement are negative. Past Medical History Past Medical History: Asthma, Hypertension, Thyroid Disorder Additional Past Medical History / Comment(s): severe chronic diarrhea for past several years History of Any Multi-Drug Resistant Organisms: None Reported Past Surgical History: Appendectomy, Cholecystectomy, Ear Surgery Additional Past Surgical History / Comment(s): fistula removed rt ear, umbilical reconstruction r/t non healing surgical wound Past Anesthesia/Blood Transfusion Reactions: No Reported Reaction Past Psychological History: Anxiety, Bipolar, Depression Smoking Status: Vaper Past Alcohol Use History: Occasional Past Drug Use History: Marijuana General Exam Limitations: no limitations General appearance: alert, in distress Head exam: Present: atraumatic, normocephalic, normal inspection ENT exam: Present: other (Pain with movement of the left tragus and left TM erythema.) Respiratory exam: Present: normal lung sounds bilaterally. Absent: respiratory distress, wheezes, rales, rhonchi, stridor Cardiovascular Exam: Present: regular rate, normal rhythm, normal heart sounds. Absent: systolic murmur, diastolic murmur, rubs, gallop, clicks GI/Abdominal exam: Present: soft, tenderness (Tender to palpation of the epigastric region) Neurological exam: Present: alert Psychiatric exam: Present: normal affect, normal mood Skin exam: Present: warm, dry, intact, normal color. Absent: rash Course Vital Signs 06/30/21 06/30/21 06/30/21 14:22 16:24 17:45 Temperature 98.1 F Pulse Rate 89 74 71 Respiratory 16 16 16 Rate Blood Pressure 126/85 122/86 128/92 O2 Sat by Pulse 98 97 97 Oximetry 06/30/21 18:00 Temperature Pulse Rate 62 Respiratory 16 Rate Blood Pressure 113/70 O2 Sat by Pulse 99 Oximetry Medical Decision Making - Medical Decision Making This is a 30-year-old female who presents to the emergency department for epigastric pain. Given concern for a stomach ulcer, acute GI series was obtained, revealing no concerns for perforation. Advised that non perforated ulcers are not often visible on imaging, and require an EGD. Her symptoms of pain and burning make a stomach ulcer a strong possibility. Lab work revealed no cardiac concerns or abnormalities with the pancreas. Reproducible pain would also not be expected with cardiac problems. IV Protonix and GI cocktail administered. Patient states that this the pain worse. Given the ongoing symptoms, computed tomography scan of the chest and abdomen obtained. After obtaining the computed tomography scan, the patient stated that the GI cocktail had improved her symptoms at that point, and she felt much better. Computed tomography scan revealed no abnormalities. Given the GI cocktail had eventually improved her symptoms, this is most likely related to a peptic ulcer. Instructed her to avoid spicy foods and eating late at night. Diet for peptic ulcers listed on discharge instructions. Rx for Zantac sent to the patient's pharmacy to be taken once daily at bedtime. Regarding the left ear pain, exam does reveal left TM erythema and tenderness to the tragus. Prescription for amoxicillin and ofloxacin drops and sent to the patient's pharmacy. Return precautions reviewed in depth, the patient is instructed to return to the emergency department with any new, worsening, or concerning symptoms. Patient verbalized understanding. This case was discussed in detail with the attending ED physician. Presentation, findings, and treatment plan discussed in detail as well. - Lab Data Result diagrams: 06/30/21 14:43 06/30/21 14:43 Lab Results 06/30/21 06/30/21 06/30/21 Range/Units 14:43 14:43 14:43 WBC 8.7 (3.8-10.6) k/uL RBC 4.90 (3.80-5.40) m/uL Hgb 14.2 (11.4-16.0) gm/dL Hct 41.4 (34.0-46.0) % MCV 84.5 (80.0-100.0) fL MCH 29.0 (25.0-35.0) pg MCHC 34.3 (31.0-37.0) g/dL RDW 13.2 (11.5-15.5) % Plt Count 247 (150-450) k/uL MPV 8.7 Neutrophils % 62 % Lymphocytes % 28 % Monocytes % 5 % Eosinophils % 2 % Basophils % 0 % Neutrophils # 5.4 (1.3-7.7) k/uL Lymphocytes # 2.5 (1.0-4.8) k/uL Monocytes # 0.4 (0-1.0) k/uL Eosinophils # 0.2 (0-0.7) k/uL Basophils # 0.0 (0-0.2) k/uL Sodium (137-145) mmol/L Potassium (3.5-5.1) mmol/L Chloride (98-107) mmol/L Carbon Dioxide (22-30) mmol/L Anion Gap mmol/L BUN (7-17) mg/dL Creatinine (0.52-1.04) mg/dL Est GFR (CKD-EPI)AfAm (>60 ml/min/1.73 sqM) Est GFR (CKD-EPI)NonAf (>60 ml/min/1.73 sqM) Glucose (74-99) mg/dL Calcium (8.4-10.2) mg/dL Total Bilirubin (0.2-1.3) mg/dL AST (14-36) U/L ALT (4-34) U/L Alkaline Phosphatase (38-126) U/L Troponin I (0.000-0.034) ng/mL Total Protein (6.3-8.2) g/dL Albumin (3.5-5.0) g/dL Amylase (30-110) U/L Lipase (23-300) U/L Urine Color Yellow Urine Appearance Cloudy H (Clear) Urine pH 6.0 (5.0-8.0) Ur Specific [place] 1.019 (1.001-1.035) Urine Protein Negative (Negative) Urine Glucose (UA) Negative (Negative) Urine Ketones Negative (Negative) Urine Blood Negative (Negative) Urine Nitrite Negative (Negative) Urine Bilirubin Negative (Negative) Urine Urobilinogen <2.0 (<2.0) mg/dL Ur Leukocyte Esterase Large H (Negative) Urine RBC 1 (0-5) /hpf Urine WBC 15 H (0-5) /hpf Ur Squamous Epith Cells 6 H (0-4) /hpf Urine Mucus Few H (None) /hpf Urine HCG, Qual Not Detected (Not Detectd) 06/30/21 06/30/21 Range/Units 14:43 14:43 WBC (3.8-10.6) k/uL RBC (3.80-5.40) m/uL Hgb (11.4-16.0) gm/dL Hct (34.0-46.0) % MCV (80.0-100.0) fL MCH (25.0-35.0) pg MCHC (31.0-37.0) g/dL RDW (11.5-15.5) % Plt Count (150-450) k/uL MPV Neutrophils % % Lymphocytes % % Monocytes % % Eosinophils % % Basophils % % Neutrophils # (1.3-7.7) k/uL Lymphocytes # (1.0-4.8) k/uL Monocytes # (0-1.0) k/uL Eosinophils # (0-0.7) k/uL Basophils # (0-0.2) k/uL Sodium 140 (137-145) mmol/L Potassium 3.9 (3.5-5.1) mmol/L Chloride 107 (98-107) mmol/L Carbon Dioxide 22 (22-30) mmol/L Anion Gap 11 mmol/L BUN 7 (7-17) mg/dL Creatinine 0.72 (0.52-1.04) mg/dL Est GFR (CKD-EPI)AfAm >90 (>60 ml/min/1.73 sqM) Est GFR (CKD-EPI)NonAf >90 (>60 ml/min/1.73 sqM) Glucose 87 (74-99) mg/dL Calcium 9.6 (8.4-10.2) mg/dL Total Bilirubin 0.3 (0.2-1.3) mg/dL AST 32 (14-36) U/L ALT 50 H (4-34) U/L Alkaline Phosphatase 76 (38-126) U/L Troponin I <0.012 (0.000-0.034) ng/mL Total Protein 7.7 (6.3-8.2) g/dL Albumin 4.7 (3.5-5.0) g/dL Amylase 61 (30-110) U/L Lipase 103 (23-300) U/L Urine Color Urine Appearance (Clear) Urine pH (5.0-8.0) Ur Specific [place] (1.001-1.035) Urine Protein (Negative) Urine Glucose (UA) (Negative) Urine Ketones (Negative) Urine Blood (Negative) Urine Nitrite (Negative) Urine Bilirubin (Negative) Urine Urobilinogen (<2.0) mg/dL Ur Leukocyte Esterase (Negative) Urine RBC (0-5) /hpf Urine WBC (0-5) /hpf Ur Squamous Epith Cells (0-4) /hpf Urine Mucus (None) /hpf Urine HCG, Qual (Not Detectd) - EKG Data EKG Comments: Normal sinus rhythm. Ventricular rate 77 bpm, TN interval 172 ms, QRS duration 82 ms, QTC 407 ms. - Radiology Data Radiology results: report reviewed, image reviewed Disposition Clinical Impression: Peptic ulcer, Acute otitis media Disposition: HOME SELF-CARE Instructions (If sedation given, give patient instructions): Peptic Ulcer (ED), Gastritis (ED), Diet for Stomach Ulcers and Gastritis (ED) Additional Instructions: Return to the emergency department with any new, worsening, or concerning symptoms. Take the Famotidine once daily at bedtime. Take the amoxicillin and ofloxacin ear drops as prescribed. Contact Dr. Cobb's office for an appointment. Prescriptions: Amoxicillin 875 mg PO Q12HR 5 Days #10 tablet Famotidine 40 mg PO HS #28 tab Ofloxacin 0.3% Otic Soln [Floxin 0.3% Otic Soln] 10 drops BOTH EARS QAM 7 Days #10 ml Is patient prescribed a controlled substance at d/c from ED?: No Referrals: Tree Lara MD [Primary Care Provider] - 1-2 days Dania Cobb MD [STAFF PHYSICIAN] - 1-2 days
[2021-06-30 15:07] LABS: Basophils % (A) 0 %; Eosinophils # (A) 0.2 k/uL (0-0.7); Eosinophils % (A) 2 %; HCT 41.4 % (34.0-46.0); HGB 14.2 gm/dL (11.4-16.0); Lymphocytes # (A) 2.5 k/uL (1.0-4.8); Lymphocytes % (A) 28 %; MCHC 34.3 g/dL (31.0-37.0); MCV 84.5 fL (80.0-100.0); Mean Platelet Volume 8.7; Monocytes # (A) 0.4 k/uL (0-1.0); Monocytes % (A) 5 %; Neutrophils # (A) 5.4 k/uL (1.3-7.7); Neutrophils % (A) 62 %; Platelet Count 247 k/uL (150-450); RDW 13.2 % (11.5-15.5); WBC 8.7 k/uL (3.8-10.6)
[2021-06-30 15:22] LABS: ALT 50 U/L (4-34); AST 32 U/L (14-36); African American GFR (CKD) >90 (>60 ml/min/1.73 sqM); Albumin 4.7 g/dL (3.5-5.0); Alkaline Phosphatase 76 U/L (38-126); Amylase 61 U/L (30-110); Anion Gap 11 mmol/L; Blood Urea Nitrogen 7 mg/dL (7-17); Calcium 9.6 mg/dL (8.4-10.2); Carbon Dioxide 22 mmol/L (22-30); Chloride 107 mmol/L (98-107); Glucose 87 mg/dL (74-99); Lipase 103 U/L (23-300); Non-African American GFR(CKD) >90 (>60 ml/min/1.73 sqM); Potassium 3.9 mmol/L (3.5-5.1); Sodium 140 mmol/L (137-145); Total Bilirubin 0.3 mg/dL (0.2-1.3); Total Protein 7.7 g/dL (6.3-8.2)
[2021-06-30 15:25] LABS: Appearance,Urine Cloudy (Clear); Bilirubin,Urine Negative (Negative); Blood,Urine Negative (Negative); Color,Urine Yellow; Glucose,Urine (UA) Negative (Negative); Ketones,Urine Negative (Negative); Leukocyte Esterase,Urine Large (Negative); Mucus,Urine Few /hpf; Nitrite,Urine Negative (Negative); Protein,Urine Negative (Negative); RBC,Urine 1 /hpf (0-5); Specific Gravity,Urine 1.019 (1.001-1.035); Squamous Epithelial Cell,Urine 6 /hpf (0-4); Urobilinogen,Urine <2.0 mg/dL (<2.0); WBC,Urine 15 /hpf (0-5)
--- NOTE | 2021-06-30 15:25 | XR ---
EXAMINATION TYPE: XR abdomen acute w cxr DATE OF EXAM: 06/30/2021 3:14 PM INDICATION: Patient age:Female; 30 years old; Reason for study: Epigastric pain and burning, hx of GERD; . COMPARISON: CT abdomen pelvis 04/02/2020 chest x-ray 02/21/2016. TECHNIQUE: Two radiographic views of the abdomen and an a chest radiograph were obtained. FINDINGS CHEST: Lungs/Pleura: The lungs are clear. There is no evidence of pleural effusion, focal consolidation or p neumothorax. Mediastinum: Unremarkable. Vasculature: Normal. Heart: Normal in size. Musculoskeletal: The osseous structures are intact. Other findings: No significant. FINDINGS ABDOMEN: Bowel gas pattern: Normal without dilated loops of small or large bowel. Fecal material and gas are d emonstrated throughout the colon and rectum. Abnormal calcifications: None. Musculoskeletal: Normal. Other: IUD is present projecting over the sacrum. Right upper cartilage and cholecystectomy clips are present. IMPRESSION: 1. No radiographic evidence for acute abdominal process. 2. No acute cardiopulmonary process 3. IUD present.
[2021-06-30] MEDS ORDERED: MAG HYDROX/AL HYDROX/SIMETH 30 ML, HYOSCYAMINE ELIXIR 10 ML, LIDOCAINE VISCOUS 2% 10 ML PO STA ×3 (15:34)
--- NOTE | 2021-06-30 17:42 | CT ---
EXAMINATION TYPE: CT chest abdomen wo con CT DLP: 1053.8 mGycm, Automated exposure control for dose reduction was used. DATE OF EXAM: 06/30/2021 5:29 PM COMPARISON: Multiple CTs of the chest with most recent on 04/02/2020 . CLINICAL INDICATION:Female, 30 years old with history of Epigastric pain;Epigastric abdominal pain. Technique: Multiple axial images of the chest, abdomen, and pelvis were obtained following the intrav enous administration of 100 mL Isovue-300. Two-dimensional coronal and sagittal reconstructions were obtained. Findings: CHEST: LUNGS/ PLEURA: The lung parenchyma appears unremarkable. AIRWAY: Patent and unremarkable.. HEART: Size within normal limits. MEDIASTINUM: No gross evidence of adenopathy. Remnant thymic tissue noted. VASCULATURE: No aortic aneurysm. MUSCULOSKELETAL: No acute osseous abnormalities. SOFT TISSUES/LYMPH NODES: Unremarkable. LOWER NECK: No significant findings. ABDOMEN: ABDOMEN LIVER: Diffusely hypoattenuating parenchyma. GALLBLADDER AND BILE DUCTS: The gallbladder is surgically absent. PANCREAS: Unremarkable. SPLEEN: Unremarkable. ADRENAL GLANDS: Unremarkable. KIDNEYS AND URETERS: No evidence of hydronephrosis or renal calculus. The ureters are unremarkable. PELVIS BLADDER: Unremarkable REPRODUCTIVE: Unremarkable. ABDOMEN & PELVIS STOMACH AND BOWEL: No evidence of bowel obstruction. PERITONEUM: No evidence of pneumoperitoneum or free fluid. VASCULATURE: No evidence of aortic aneurysm. MUSCULOSKELETAL: No acute osseous abnormalities LYMPH NODES: No gross evidence for lymphadenopathy. SOFT TISSUE/ABDOMINAL WALL: Unremarkable IMPRESSION: 1. No evidence for acute process in the abdomen or thorax. 2. Hepatic steatosis.
[2021-06-30] MEDS ORDERED: MORPHINE SULFATE 2 MG/ML SYRINGE IVP STA (17:45)
[2021-06-30 18:03] VITALS: BP 113/70; PULSE 62
== END 2021-06-30 18:32 | disposition home or self-care (01) ==
LOC: EC 14:18
DX: K27.9 Peptic ulcer, site unspecified, unspecified as acute or chronic, without hemorrhage or perforation (principal); F17.209 Nicotine dependence, unspecified, with unspecified nicotine-induced disorders; H66.90 Otitis media, unspecified, unspecified ear; Z88.5 Allergy status to narcotic agent; Z88.2 Allergy status to sulfonamides; K90.41 Non-celiac gluten sensitivity; Z91.041 Radiographic dye allergy status; Z91.040 Latex allergy status; Z91.09 Other allergy status, other than to drugs and biological substances
CPT/HCPCS: 36415; 93005; 80053; 82150; 83690; 84484; 85025; 81001; 81025; 87086; 74022; 71250; 74150; 99284; 96374; 96375; 96361; J2405; J2270; C9113

== ENCOUNTER 2021-08-16 10:27 | Emergency (ER) | payer OTHER ==
[2021-08-16 10:31] VITALS: TEMP 98.3
[2021-08-16 11:18] LABS: Basophils % (A) 0 %; Eosinophils # (A) 0.1 k/uL (0-0.7); Eosinophils % (A) 1 %; HCT 37.8 % (34.0-46.0); HGB 13.1 gm/dL (11.4-16.0); Lymphocytes # (A) 1.9 k/uL (1.0-4.8); Lymphocytes % (A) 22 %; MCH 29.2 pg (25.0-35.0); MCHC 34.7 g/dL (31.0-37.0); MCV 84.1 fL (80.0-100.0); Mean Platelet Volume 8.9; Monocytes # (A) 0.4 k/uL (0-1.0); Monocytes % (A) 5 %; Neutrophils # (A) 6.4 k/uL (1.3-7.7); Neutrophils % (A) 71 %; Platelet Count 228 k/uL (150-450); RDW 12.5 % (11.5-15.5); WBC 8.9 k/uL (3.8-10.6)
[2021-08-16 11:33] LABS: ALT 21 U/L (4-34); African American GFR (CKD) >90 (>60 ml/min/1.73 sqM); Albumin 4.4 g/dL (3.5-5.0); Alkaline Phosphatase 67 U/L (38-126); Anion Gap 9 mmol/L; Calcium 9.6 mg/dL (8.4-10.2); Carbon Dioxide 23 mmol/L (22-30); Chloride 106 mmol/L (98-107); Glucose 100 mg/dL (74-99); Non-African American GFR(CKD) >90 (>60 ml/min/1.73 sqM); Potassium 4.3 mmol/L (3.5-5.1); Sodium 138 mmol/L (137-145)
[2021-08-16 11:43] LABS: AST 24 U/L (14-36); Blood Urea Nitrogen 10 mg/dL (7-17); Total Bilirubin 0.4 mg/dL (0.2-1.3); Total Protein 7.2 g/dL (6.3-8.2)
--- NOTE | 2021-08-16 11:46 | US ---
EXAMINATION TYPE: US transvaginal DATE OF EXAM: 08/16/2021 COMPARISON: CT abdomen and pelvis April 02, 2020 CLINICAL HISTORY: heavy vaginal bleeding s/p IUD removal Thursday. Had IUD removed 1 week ago heavy ble eding and clotting. TECHNIQUE: Transvaginal (TV). EXAM MEASUREMENTS: Uterus: 8.3 x 3.7 x 4.1 cm Endometrial Stripe: .7 cm Right Ovary: 5.7 x 2.6 x 2.3 cm Left Ovary: 3.0 x 2.1 x 2.5 cm 1. Uterus: Anteverted wnl 2. Endometrium: wnl 3. Right Ovary: Cystic area 4.8 x 2.4 x 1.8 cm. 4. Left Ovary: Obscured by overlying bowel gas Spectral, color and waveform doppler imaging shows good arterial and venous flow within the right o vary. 5. Bilateral Adnexa: wnl 6. Posterior cul-de-sac: moderate non-simple fluid Heterogeneous anteverted uterus. At least moderate amount of nonsimple fluid. Both ovaries seen, right slightly larger in size due to elongated thin-walled cyst. IMPRESSION: At least moderate amount of nonsimple fluid suspected blood products in the pelvic cul-de -sac. Correlate with hemoglobin values advised.
[2021-08-16] MEDS ORDERED: ACET/COD 300 MG/30 MG STARTER PACK 6 TAB BTL PO STA (11:51)
[2021-08-16 12:02] LABS: INR 0.9 (<1.2); Partial Thromboplastin Time 23.1 sec (22.0-30.0); Prothrombin Time 9.7 sec (9.0-12.0)
--- NOTE | 2021-08-16 12:21 | ED ---
Female Urogenital HPI - General Chief complaint: Vaginal Bleeding Stated complaint: Female Time Seen by Provider: 08/16/21 10:33 Source: patient Mode of arrival: ambulatory Limitations: no limitations - History of Present Illness Initial comments: Patient is a 30-year-old female who presents to the emergency department for evaluation of abnormal vaginal bleeding. Patient states she has always had irregular, heavy, menstrual periods which is why she got the Mirena IUD inserted 3 years ago. Patient states she got the IUD removed by the health department 1 week ago and started oral control pills the same day. Patient states for the most part she felt well initially after the removal with some mild pelvic cramping however 2 days later on Thursday patient started to experience heavy vaginal bleeding. Patient states on a stationary noticed some small clots. Patient reports that during the week she bled minimally and until last night whe n she started to have heavy vaginal bleeding again. Patient states that she woke up this morning at 6 AM with "2 golf ball size clots." Patient reports increased pelvic pain at this time. Patient states she changed her tampon twice however continued to bleed with new onset lightheadedness. She denies syncope, chest pain, shortness of breath, and blood thinner use. Patient does not follow with the tobacco prizer right now she states is due to insurance issues. States she has history of right ovarian cyst. States last Pap smear was last year which was unremarkable. Does admit to breast cancer in the family however states she does not have the breast cancer gene. - Related Data Previous Rx's Medication Instructions Recorded Citalopram Hydrobromide [CeleXA] 20 mg PO DAILY 30 Days #30 tab 03/24/19 Levothyroxine Sodium [Synthroid] 50 mcg PO DAILY@0630 30 Days #30 03/24/19 tab hydroCHLOROthiazide [Hydrodiuril] 12.5 mg PO DAILY 30 Days #30 cap 03/24/19 lamoTRIgine [LaMICtal] 25 mg PO BID 30 Days #60 tab 03/24/19 lisinopriL 20 mg PO DAILY #30 tab 03/24/19 traZODone HCL [Desyrel] 50 mg PO HS 30 Days #30 tab 03/24/19 Cyclobenzaprine [Flexeril] 10 mg PO TID PRN #15 tab 05/22/20 Amoxicillin 875 mg PO Q12HR 5 Days #10 tablet 06/30/21 Famotidine 40 mg PO HS #28 tab 06/30/21 Ofloxacin 0.3% Otic Soln [Floxin 10 drops BOTH EARS QAM 7 Days #10 06/30/21 0.3% Otic Soln] ml HYDROcodone/APAP 7.5-325MG [[place] 1 tab PO Q4HR PRN 3 Days #18 tab 08/16/21 7.5-325] Allergies Allergy/AdvReac Type Severity Reaction Status Date / Time betaine [Betaine] Allergy Contact Verified 08/16/21 10:28 Blisters chlorhexidine Allergy Contact Verified 08/16/21 10:28 [From Hibiclens] Blisters gluten Allergy Unknown Verified 08/16/21 10:28 Iodinated Contrast Media Allergy Rash/Hives Verified 08/16/21 10:28 latex Allergy CONTACT Verified 08/16/21 10:28 BLISTERS sutures Allergy Unknown Uncoded 08/16/21 10:28 tape Allergy Rash/Hives Uncoded 08/16/21 10:28 Review of Systems ROS Statement: Those systems with pertinent positive or pertinent negative responses have been documented in the HPI. ROS Other: All systems not noted in ROS Statement are negative. Past Medical History Past Medical History: Asthma, Hypertension, Thyroid Disorder Additional Past Medical History / Comment(s): severe chronic diarrhea for past several years History of Any Multi-Drug Resistant Organisms: None Reported Past Surgical History: Appendectomy, Cholecystectomy, Ear Surgery Additional Past Surgical History / Comment(s): fistula removed rt ear, umbilical reconstruction r/t non healing surgical wound Past Anesthesia/Blood Transfusion Reactions: No Reported Reaction Past Psychological History: Anxiety, Bipolar, Depression Smoking Status: Vaper Past Alcohol Use History: Occasional Past Drug Use History: Marijuana General Exam Limitations: no limitations General appearance: alert, in no apparent distress Head exam: Present: atraumatic, normocephalic, normal inspection Eye exam: Present: normal appearance, PERRL, EOMI. Absent: scleral icterus, conjunctival injection, periorbital swelling Respiratory exam: Present: normal lung sounds bilaterally. Absent: respiratory distress, wheezes, rales, rhonchi, stridor Cardiovascular Exam: Present: regular rate, normal rhythm, normal heart sounds. Absent: systolic murmur, diastolic murmur, rubs, gallop, clicks GI/Abdominal exam: Present: soft, tenderness (pelvic beneath the belly button ), normal bowel sounds. Absent: distended, guarding, rebound, rigid Speculum exam: Present: vaginal bleeding (moderation ). Absent: erythema, vaginal discharge, cervical discharge, foreign body, tissue, laceration By manual exam: Present: normal by manual exam. Absent: cervical motion tenderness Neurological exam: Present: alert, oriented X3, CN II-XII intact Psychiatric exam: Present: normal affect, normal mood Skin exam: Present: warm, dry, intact, normal color. Absent: rash Course Vital Signs 08/16/21 08/16/21 10:29 13:15 Temperature 98.3 F Pulse Rate 88 75 Respiratory 16 18 Rate Blood Pressure 143/99 131/85 O2 Sat by Pulse 94 L 97 Oximetry Medical Decision Making - Medical Decision Making This is a 30-year-old female presenting for evaluation of menorrhagia. Thorough history and examination were performed. Patient is well-appearing. Vitals are stable. The abdomen is soft. There is tenderness in the pelvic region beneath the bellybutton. No tenderness to palpation of the right or left lower quadrant of the abdomen. Speculum exam reveals moderate bleeding from the cervical os without clots or discharge. Laboratory studies obtained. Hemoglobin is stable at 13.1. Transvaginal ultrasound reveals a heterogeneous anteverted uterus with a moderate amount of non-simple fluid suspected blood products in the pelvic cul-de-sac. Case discuss ed with tobacco prizer Dr. Goff. She reviewed this ultrasound with the radiologist in detail. With normal vital signs and stable hemoglobin she recommends discharge with strict return parameters and close follow-up with her on Thursday. Dr. Goff provided a direct contact number to their imaging scheduler. This number was given to the patient on a piece of paper as well as on discharge instructions. Results discussed with patient in detail. She is to take [place] for pain. Pelvic rest education provided in detail. Return parameters discussed. Patient verbalizes understanding and is agreeable to this plan. Dr. Emmanuel is my attending. - Lab Data Result diagrams: 08/16/21 10:55 08/16/21 10:55 Lab Results 08/16/21 08/16/21 08/16/21 Range/Units 10:55 10:55 10:55 WBC 8.9 (3.8-10.6) k/uL RBC 4.50 (3.80-5.40) m/uL Hgb 13.1 (11.4-16.0) gm/dL Hct 37.8 (34.0-46.0) % MCV 84.1 (80.0-100.0) fL MCH 29.2 (25.0-35.0) pg MCHC 34.7 (31.0-37.0) g/dL RDW 12.5 (11.5-15.5) % Plt Count 228 (150-450) k/uL MPV 8.9 Neutrophils % 71 % Lymphocytes % 22 % Monocytes % 5 % Eosinophils % 1 % Basophils % 0 % Neutrophils # 6.4 (1.3-7.7) k/uL Lymphocytes # 1.9 (1.0-4.8) k/uL Monocytes # 0.4 (0-1.0) k/uL Eosinophils # 0.1 (0-0.7) k/uL Basophils # 0.0 (0-0.2) k/uL PT 9.7 (9.0-12.0) sec INR 0.9 (<1.2) APTT 23.1 (22.0-30.0) sec Sodium 138 (137-145) mmol/L Potassium 4.3 (3.5-5.1) mmol/L Chloride 106 (98-107) mmol/L Carbon Dioxide 23 (22-30) mmol/L Anion Gap 9 mmol/L BUN 10 (7-17) mg/dL Creatinine 0.61 (0.52-1.04) mg/dL Est GFR (CKD-EPI)AfAm >90 (>60 ml/min/1.73 sqM) Est GFR (CKD-EPI)NonAf >90 (>60 ml/min/1.73 sqM) Glucose 100 H (74-99) mg/dL Calcium 9.6 (8.4-10.2) mg/dL Total Bilirubin 0.4 (0.2-1.3) mg/dL AST 24 (14-36) U/L ALT 21 (4-34) U/L Alkaline Phosphatase 67 (38-126) U/L Total Protein 7.2 (6.3-8.2) g/dL Albumin 4.4 (3.5-5.0) g/dL HCG, Quant mIU/mL 07/08/22 Range/Units 11:05 WBC (3.8-10.6) k/uL RBC (3.80-5.40) m/uL Hgb (11.4-16.0) gm/dL Hct (34.0-46.0) % MCV (80.0-100.0) fL MCH (25.0-35.0) pg MCHC (31.0-37.0) g/dL RDW (11.5-15.5) % Plt Count (150-450) k/uL MPV Neutrophils % % Lymphocytes % % Monocytes % % Eosinophils % % Basophils % % Neutrophils # (1.3-7.7) k/uL Lymphocytes # (1.0-4.8) k/uL Monocytes # (0-1.0) k/uL Eosinophils # (0-0.7) k/uL Basophils # (0-0.2) k/uL PT (9.0-12.0) sec INR (<1.2) APTT (22.0-30.0) sec Sodium (137-145) mmol/L Potassium (3.5-5.1) mmol/L Chloride (98-107) mmol/L Carbon Dioxide (22-30) mmol/L Anion Gap mmol/L BUN (7-17) mg/dL Creatinine (0.52-1.04) mg/dL Est GFR (CKD-EPI)AfAm (>60 ml/min/1.73 sqM) Est GFR (CKD-EPI)NonAf (>60 ml/min/1.73 sqM) Glucose (74-99) mg/dL Calcium (8.4-10.2) mg/dL Total Bilirubin (0.2-1.3) mg/dL AST (14-36) U/L ALT (4-34) U/L Alkaline Phosphatase (38-126) U/L Total Protein (6.3-8.2) g/dL Albumin (3.5-5.0) g/dL HCG, Quant <2.4 mIU/mL Disposition Clinical Impression: Menorrhagia, Pelvic pain, IUD complication Disposition: HOME SELF-CARE Condition: Good Instructions (If sedation given, give patient instructions): Intrauterine Device (DC), Menorrhagia (ED) Additional Instructions: Please take medication as directed. Continue to take oral contraceptives as they can help minimize bleeding. Please follow-up with [email or web address] on Thursday as we discussed. The phone number is [phone]. You will ask for [facility] who will help you schedule an appointment. Please rest the pelvis until further notice by tobacco prizer. This includes no strenuous activity, no sexual intercourse, and no tampon use. Return to the emergency department if you experience new, concerning, or worsening symptoms. Prescriptions: HYDROcodone/APAP 7.5-325MG [[place] 7.5-325] 1 tab PO Q4HR PRN 3 Days #18 tab PRN Reason: Pain Is patient prescribed a controlled substance at d/c from ED?: Yes Referrals: Tree Lara MD [Primary Care Provider] - 1-2 days Mary Grace Goff MD [STAFF PHYSICIAN] - 1-2 days
[2021-08-16 13:16] VITALS: BP 131/85; PULSE 75; RESP 18
[2021-08-16] MEDS ORDERED: MORPHINE SULFATE 4 MG/ML SYRINGE IVP STA (13:18)
== END 2021-08-16 14:31 | disposition home or self-care (01) ==
LOC: EC 10:27
DX: N92.0 Excessive and frequent menstruation with regular cycle (principal); T83.83XA Hemorrhage due to genitourinary prosthetic devices, implants and grafts, initial encounter; I10 Essential (primary) hypertension; E07.9 Disorder of thyroid, unspecified; J45.909 Unspecified asthma, uncomplicated; F31.9 Bipolar disorder, unspecified; F41.9 Anxiety disorder, unspecified; F17.290 Nicotine dependence, other tobacco product, uncomplicated; F12.90 Cannabis use, unspecified, uncomplicated; Z79.890 Hormone replacement therapy; Z79.899 Other long term (current) drug therapy
CPT/HCPCS: 36415; 80053; 85025; 85610; 85730; 84702; 76830; 99284; 96374; J2270

== ENCOUNTER → 2023-05-12 | Outpatient (CLI) | payer OTHER ==
--- NOTE | 2023-05-12 12:19 | XR ---
EXAMINATION TYPE: XR knee complete LT DATE OF EXAM: 05/12/2023 CLINICAL HISTORY: pain TECHNIQUE: Three views of the left knee are obtained. COMPARISON: None. FINDINGS: There is no acute fracture/dislocation. The tri-compartment joint spaces appear within no rmal limits. The overlying soft tissue appears unremarkable. IMPRESSION: There is no acute fracture or dislocation ICD 10 NO FRACTURE, INITIAL EVALUATION
--- NOTE | 2023-05-12 12:20 | XR ---
EXAMINATION TYPE: XR tibia fibula LT DATE OF EXAM: 05/12/2023 CLINICAL HISTORY: pain TECHNIQUE: AP and lateral images of the left tibia and fibula are obtained. COMPARISON: None. FINDINGS: There is no acute fracture/dislocation evident. The joint spaces appear within normal etienne its. The overlying soft tissue appears unremarkable. IMPRESSION: There is no acute fracture or dislocation seen. ICD 10 NO FRACTURE, INITIAL EVALUATION
== END | disposition home or self-care (01) ==
LOC: RADXRMAIN 11:59
PROVIDERS: ATTEND Emergency Medicine
DX: S80.02XA Contusion of left knee, initial encounter (principal); M79.662 Pain in left lower leg

== ENCOUNTER → 2023-05-19 | Outpatient (CLI) | payer OTHER ==
--- NOTE | 2023-05-19 12:14 | XR ---
EXAMINATION TYPE: XR knee complete LT DATE OF EXAM: 05/19/2023 CLINICAL HISTORY: pain TECHNIQUE: Three views of the left knee are obtained. COMPARISON: None. FINDINGS: There is no acute fracture/dislocation. The tri-compartment joint spaces appear within no rmal limits. The overlying soft tissue appears unremarkable. IMPRESSION: There is no acute fracture or dislocation ICD 10 NO FRACTURE, INITIAL EVALUATION
== END | disposition home or self-care (01) ==
LOC: RADXRMAIN 11:41
PROVIDERS: ATTEND Emergency Medicine
DX: S80.02XD Contusion of left knee, subsequent encounter (principal); X58.XXXD Exposure to other specified factors, subsequent encounter

== ENCOUNTER 2023-09-14 20:49 | Inpatient (IN) | payer MEDICAID, OTHER ==
[2023-09-17] MEDS ORDERED: busPIRone HCl 5 MG TAB ONE ×3 (07:59→20:06)
[2023-09-17] MEDS ORDERED: lamoTRIgine 25 MG TAB ONE ×2 (07:59→20:09)
[2023-09-17] MEDS ORDERED: ESCITALOPRAM 10 MG TAB ONE (08:00)
[2023-09-17] MEDS ORDERED: LORazepam 1 MG TAB ONE ×3 (08:46→20:57)
[2023-09-17] MEDS ORDERED: ACETAMINOPHEN TAB 325 MG TAB ONE (11:14)
[2023-09-17] MEDS ORDERED: traZODone HCL 100 MG TAB ONE (20:08)
[2023-09-17] MEDS ORDERED: lisinopriL 20 MG TAB ONE (20:09)
[2023-09-17] MEDS ORDERED: amLODIPine 5 MG TAB ONE (20:09)
[2023-09-18] MEDS ORDERED: lamoTRIgine 25 MG TAB ONE ×2 (07:54→16:06)
[2023-09-18] MEDS ORDERED: ESCITALOPRAM 10 MG TAB ONE (07:54)
[2023-09-18] MEDS ORDERED: busPIRone HCl 5 MG TAB ONE ×2 (07:54→16:06)
[2023-09-18] MEDS ORDERED: ACETAMINOPHEN TAB 325 MG TAB ONE (10:01)
[2023-09-18] MEDS ORDERED: LORazepam 1 MG TAB ONE (10:01)
--- NOTE | 2023-10-21 16:07 | XR ---
Site ID [facility] Sara Mckeon ID [id number] EXAMINATION TYPE: XR chest 1V DATE OF EXAM: 09/19/2023 10:31 AM CLINICAL INDICATION:Cough. Inpatient. COMPARISON: THIS EXAM WAS READ DURING PACS DOWNTIME, NO PRIORS AVAILABLE. TECHNIQUE: XR chest 1V Frontal view of the chest. FINDINGS: Lungs/Pleura: There is no evidence of pleural effusion, focal consolidation, or pneumothorax. Pulmonary vascularity: Unremarkable. Heart/mediastinum: Cardiomediastinal silhouette is unremarkable. Musculoskeletal: No acute osseous pathology. Other findings: None IMPRESSION: No acute cardiopulmonary disease/process.
== END 2023-09-18 17:02 | disposition home or self-care (01) | DRG 754 ==
LOC: UNDOADMIN 20:49 → 3MHU 20:49 → UNDODISIN 09-18 17:02
PROVIDERS: ADMIT Psychiatry & Neurology Psychiatry; ATTEND Psychiatry & Neurology Psychiatry
DX: F32.A Depression, unspecified (principal); F41.9 Anxiety disorder, unspecified; U07.1 COVID-19; K90.41 Non-celiac gluten sensitivity; Z91.040 Latex allergy status; R45.851 Suicidal ideations; I10 Essential (primary) hypertension; J45.909 Unspecified asthma, uncomplicated; E66.9 Obesity, unspecified; Z91.041 Radiographic dye allergy status; Z88.8 Allergy status to other drugs, medicaments and biological substances; Z90.710 Acquired absence of both cervix and uterus; Z91.018 Allergy to other foods
CPT/HCPCS: 71045; 99285

== ENCOUNTER 2023-10-25 17:13 | Emergency (ER) | payer OTHER ==
--- NOTE | 2023-10-25 17:27 | ED ---
Headache HPI - General Chief Complaint: Headache Stated Complaint: Face drooping, headache, blood in stool Time Seen by Provider: 10/25/23 17:26 Source: patient, RN notes reviewed Mode of arrival: ambulatory Limitations: no limitations - History of Present Illness Initial Comments: 32-year-old female presented to the ER with a chief complaint of headache. She states headache started on Thursday and has been increasing intensity. Patient was seen at [facility] on Thursday for the migraine. Patient received symptomatic treatment and was discharged home. Patient states migraine has persisted. She states today when she woke up she noticed her right eye appeared to be drooping and her face seemed abnormal. She has tried taking i buprofen 600 without relief. Denies any slurred speech or weakness. No other complaints. Patient does have a history of migraines. Patient does report a history of hypertension and has taken her medications as prescribed. - Related Data Previous Rx's Medication Instructions Recorded Citalopram Hydrobromide [CeleXA] 20 mg PO DAILY 30 Days #30 tab 03/24/19 Levothyroxine Sodium [Synthroid] 50 mcg PO DAILY@0630 30 Days #30 03/24/19 tab hydroCHLOROthiazide [Hydrodiuril] 12.5 mg PO DAILY 30 Days #30 cap 03/24/19 lamoTRIgine [LaMICtal] 25 mg PO BID 30 Days #60 tab 03/24/19 lisinopriL 20 mg PO DAILY #30 tab 03/24/19 traZODone HCL [Desyrel] 50 mg PO HS 30 Days #30 tab 03/24/19 Cyclobenzaprine [Flexeril] 10 mg PO TID PRN #15 tab 05/22/20 Amoxicillin 875 mg PO Q12HR 5 Days #10 tablet 06/30/21 Famotidine 40 mg PO HS #28 tab 06/30/21 Ofloxacin 0.3% Otic Soln [Floxin 10 drops BOTH EARS QAM 7 Days #10 06/30/21 0.3% Otic Soln] ml HYDROcodone/APAP 7.5-325MG [[place] 1 tab PO Q4HR PRN 3 Days #18 tab 08/16/21 7.5-325] predniSONE [Deltasone] 60 mg PO DAILY #21 tab 10/25/23 Allergies Allergy/AdvReac Type Severity Reaction Status Date / Time betaine [Betaine] Allergy Contact Verified 10/25/23 17:18 Blisters chlorhexidine Allergy Contact Verified 10/25/23 17:18 [From Hibiclens] Blisters gluten Allergy Unknown Verified 10/25/23 17:18 Iodinated Contrast Media Allergy Rash/Hives Verified 10/25/23 17:18 latex Allergy CONTACT Verified 10/25/23 17:18 BLISTERS sutures Allergy Unknown Uncoded 10/25/23 17:18 tape Allergy Rash/Hives Uncoded 10/25/23 17:18 Review of Systems ROS Statement: Those systems with pertinent positive or pertinent negative responses have been documented in the HPI. ROS Other: All systems not noted in ROS Statement are negative. Past Medical History Past Medical History: Asthma, Hypertension, Thyroid Disorder Additional Past Medical History / Comment(s): severe chronic diarrhea for past several years History of Any Multi-Drug Resistant Organisms: None Reported Past Surgical History: Appendectomy, Cholecystectomy, Ear Surgery Additional Past Surgical History / Comment(s): fistula removed rt ear, umbilical reconstruction r/t non healing surgical wound Past Anesthesia/Blood Transfusion Reactions: No Reported Reaction Past Psychological History: Anxiety, Bipolar, Depression Smoking Status: Former smoker Past Alcohol Use History: Occasional Past Drug Use History: None Reported General Exam - General Exam Comments Initial Comments: Visual Physical Exam Vital signs reviewed General: Well-appearing, nontoxic, no acute distress. Head: Normocephalic, atraumatic Eyes: PERRLA, EOMI ENT: Airway patent Chest: Nonlabored breathing Skin: No visual rash, normal skin tone Neuro: Alert and oriented 3 Musculoskeletal: No gross abnormalities Limitations: no limitations General appearance: alert, in no apparent distress Eye exam: Present: normal appearance, PERRL, EOMI. Absent: scleral icterus, conjunctival injection, periorbital swelling Pupils: Present: normal accommodation ENT exam: Present: normal exam, normal oropharynx, mucous membranes moist Neck exam: Present: normal inspection. Absent: tenderness, meningismus, lymphadenopathy Respiratory exam: Present: normal lung sounds bilaterally. Absent: respiratory distress, wheezes, rales, rhonchi, stridor Cardiovascular Exam: Present: regular rate, normal rhythm, normal heart sounds. Absent: systolic murmur, diastolic murmur, rubs, gallop, clicks Extremities exam: Present: normal inspection, full ROM, normal capillary refill. Absent: tenderness, pedal edema, joint swelling, calf tenderness Neurological exam: Present: alert, oriented X3, CN II-XII intact, other (Patient reports decrease sensation to right face. ) Skin exam: Present: warm, dry, intact, normal color. Absent: rash Course Vital Signs 10/25/23 10/25/23 10/25/23 17:16 21:09 22:21 Temperature 99.1 F 97.9 F 98.1 F Pulse Rate 92 76 78 Respiratory 16 18 18 Rate Blood Pressure 152/100 143/90 140/89 O2 Sat by Pulse 97 98 99 Oximetry Medical Decision Making - Medical Decision Making I performed the quick note portion of this chart. Electronically signed by Swati Diehl PA-C Was pt. sent in by a medical professional or institution ([facility]EN[facility] Linares, SWITCHBOX ASSEMBLER, urgent care, hospital, or [place] health care facility...) When possible be specific @ -No Did you speak to anyone other than the patient for history (EMS, parent, family, police, friend...)? What history was obtained from this source @ -No Did you review nursing and triage notes (agree or disagree)? Why? @ -I reviewed and agree with nursing and triage notes Were old charts reviewed (outside hosp., previous admission, EMS record, old EKG, old radiological studies, urgent care reports/EKG's, [place] health care facility records)? Report findings @ -No old charts were reviewed Differential Diagnosis (chest pain, altered mental status, abdominal pain women, abdominal pain men, vaginal bleeding, weakness, fever, dyspnea, syncope, headache, dizziness, GI bleed, back pain, seizure, CVA, palpatations, mental health, musculoskeletal)? @ -Differential Headache: Migraine, tension, cluster, carbon monoxide, central venous thrombosis, pension karma temporal arteritis, acute closure glaucoma, intercranial hemorrhage, mastoiditis, sinusitis, head injury, this is not meant to be an all-inclusive list. EKG interpreted by me (3pts min.). @ -None done X-rays interpreted by me (1pt min.). @ -None done CT interpreted by me (1pt min.). @ - Ct brain negative for acute intracranial process. U/S interpreted by me (1pt. min.). @ -None done What testing was considered but not performed or refused? (CT, X-rays, U/S, labs)? Why? @ -None What meds were considered but not given or refused? Why? @ -None Did you discuss the management of the patient with other professionals (professionals i.e. , PA, SWITCHBOX ASSEMBLER, lab, RT, psych nurse, medical social worker, grill cook, teacher, investigation officer, case management manager)? Give summary @ -No Was smoking cessation discussed for >3mins.? @ -No Was critical care preformed (if so, how long)? @ -No Were there social determinants of health that impacted care today? How? (Homelessness, low income, unemployed, alcoholism, drug addiction, trans portation, low edu. Level, literacy, decrease access to med. care, nursing home, rehab)? @ -No Was there de-escalation of care discussed even if they declined (Discuss DNR or withdrawal of care, Hospice)? DNR status @ -No What co-morbidities impacted this encounter? (DM, HTN, Smoking, COPD, CAD, Cancer, CVA, ARF, Chemo, Hep., AIDS, mental health diagnosis, sleep apnea, morbid obesity)? @ -None Was patient admitted / discharged? Hospital course, mention meds given and route, prescriptions, significant lab abnormalities, going to OR and other pertinent info. @ -[Discharge. 32-year-old female presented the ER with a chief complaint of a headache and right-sided facial abnormality. Patient physical exam completed. Vitals within normal limits. Patient originally seen as a quick note. Upon my evaluation, patient resting comfortably on stretcher no signs of acute distress. Mild drooping to right eye. Patient has equal smile and eyebrow raise. She does report a decreased sensation to the right side of her face. Patient evaluated at bedside by my attending, Dr. Holman as well. CT brain performed negative for acute intracranial process. Laboratory studies unremarkable. Viral swabs negative. Patient received symptomatic treatment in the ER. Upon reevaluation, patient resting comfortably in exam room in no signs of acute distress. 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 Strict return parameters discussed. Patient discharged in stable condition with follow-up to PCP. Patient verbally expressed understanding agree with care plan. Case discussed with the attending, Dr. Holman. Undiagnosed new problem with uncertain prognosis? @ -No Drug Therapy requiring intensive monitoring for toxicity (Heparin, Nitro, Insulin, Cardizem)? @ -No Were any procedures done? @ -No Diagnosis/symptom? @ -Treviño's palsy/headache Acute, or Chronic, or Acute on Chronic? @ -Acute Uncomplicated (without systemic symptoms) or Complicated (systemic symptoms)? @ -Uncomplicated Side effects of treatment? @ -No Exacerbation, Progression, or Severe Exacerbation? @ -No Poses a threat to life or bodily function? How? (Chest pain, [place], [place], pneumonia, PE, COPD, DKA, ARF, appy, cholecystitis, CVA, Diverticulitis, Homicidal, Suicidal, threat to staff... and all critical care pts) @ -No - Lab Data Result diagrams: 10/25/23 19:33 10/25/23 19:33 Lab Results 10/25/23 10/25/23 10/25/23 Range/Units 19:33 19:33 19:33 WBC 7.9 (3.8-10.6) k/uL RBC 4.53 (3.80-5.40) m/uL Hgb 12.8 (11.4-16.0) gm/dL Hct 37.2 (34.0-46.0) % MCV 82.2 (80.0-100.0) fL MCH 28.3 (25.0-35.0) pg MCHC 34.4 (31.0-37.0) g/dL RDW 14.0 (11.5-15.5) % Plt Count 224 (150-450) k/uL MPV 8.4 Neutrophils % 62 % Lymphocytes % 29 % Monocytes % 6 % Eosinophils % 2 % Basophils % 0 % Neutrophils # 4.9 (1.3-7.7) k/uL Lymphocytes # 2.3 (1.0-4.8) k/uL Monocytes # 0.5 (0-1.0) k/uL Eosinophils # 0.1 (0-0.7) k/uL Basophils # 0.0 (0-0.2) k/uL Sodium 138 (137-145) mmol/L Potassium 3.6 (3.5-5.1) mmol/L Chloride 104 (98-107) mmol/L Carbon Dioxide 26 (22-30) mmol/L Anion Gap 8 mmol/L BUN 11 (7-17) mg/dL Creatinine 0.59 (0.52-1.04) mg/dL Est GFR (CKD-EPI)AfAm >90 (>60 ml/min/1.73 sqM) Est GFR (CKD-EPI)NonAf >90 (>60 ml/min/1.73 sqM) Glucose 100 H (74-99) mg/dL Calcium 9.3 (8.4-10.2) mg/dL Total Bilirubin 0.3 (0.2-1.3) mg/dL AST 23 (14-36) U/L ALT 25 (4-34) U/L Alkaline Phosphatase 66 (38-126) U/L Total Protein 6.2 L (6.3-8.2) g/dL Albumin 3.8 (3.5-5.0) g/dL Influenza Type A (PCR) Not Detected (Not Detectd) Influenza Type B (PCR) Not Detected (Not Detectd) RSV (PCR) Not Detected (Not Detectd) SARS-CoV-2 (PCR) Not Detected (Not Detectd) - Radiology Data Radiology results: report reviewed, image reviewed Disposition Clinical Impression: Headache, Treviño's palsy Disposition: HOME SELF-CARE Condition: Stable Instructions (If sedation given, give patient instructions): Treviño Palsy (ED) Additional Instructions: Follow-up with PCP in the next 1 to 2 days. Return to the ER for any new or worsening concerns. Prescriptions: predniSONE [Deltasone] 60 mg PO DAILY #21 tab Is patient prescribed a controlled substance at d/c from ED?: No Referrals: Jeimy Branch FNPBC [REFERRING] - 1-2 days Forms: Area PCPs Time of Disposition: 21:47
[2023-10-25 19:55] LABS: Basophils % (A) 0 %; Eosinophils # (A) 0.1 k/uL (0-0.7); Eosinophils % (A) 2 %; HCT 37.2 % (34.0-46.0); HGB 12.8 gm/dL (11.4-16.0); Lymphocytes # (A) 2.3 k/uL (1.0-4.8); Lymphocytes % (A) 29 %; MCH 28.3 pg (25.0-35.0); MCHC 34.4 g/dL (31.0-37.0); MCV 82.2 fL (80.0-100.0); Mean Platelet Volume 8.4; Monocytes # (A) 0.5 k/uL (0-1.0); Monocytes % (A) 6 %; Neutrophils # (A) 4.9 k/uL (1.3-7.7); Neutrophils % (A) 62 %; Platelet Count 224 k/uL (150-450); RBC 4.53 m/uL (3.80-5.40); WBC 7.9 k/uL (3.8-10.6)
[2023-10-25 20:17] LABS: ALT 25 U/L (4-34); AST 23 U/L (14-36); African American GFR (CKD) >90 (>60 ml/min/1.73 sqM); Albumin 3.8 g/dL (3.5-5.0); Alkaline Phosphatase 66 U/L (38-126); Anion Gap 8 mmol/L; Blood Urea Nitrogen 11 mg/dL (7-17); Calcium 9.3 mg/dL (8.4-10.2); Carbon Dioxide 26 mmol/L (22-30); Chloride 104 mmol/L (98-107); Glucose 100 mg/dL (74-99); Non-African American GFR(CKD) >90 (>60 ml/min/1.73 sqM); Potassium 3.6 mmol/L (3.5-5.1); Sodium 138 mmol/L (137-145); Total Bilirubin 0.3 mg/dL (0.2-1.3); Total Protein 6.2 g/dL (6.3-8.2)
--- NOTE | 2023-10-25 20:50 | CT ---
EXAMINATION TYPE: CT brain wo con CT DLP: 1180.2 mGycm, Automated exposure control for dose reduction was used. DATE OF EXAM: 10/25/2023 8:44 PM COMPARISON: 04/26/2017. CLINICAL INDICATION: Female, 32 years old with history of migraine, migraine and facial sagging TECHNIQUE: Brain: Axial CT images of the brain were obtained with coronal and sagittal reformats created and rev iewed. Contrast used: None. Oral contrast used: None. FINDINGS: Brain: Extra-axial spaces: No abnormal extra-axial fluid collections. Ventricular system: Within normal limits Cerebral parenchyma: No acute intraparenchymal hemorrhage or mass effect. The lange-white junction is well differentiated. Cerebellum: Unremarkable. Mass effect: No evidence of midline shift. Intracranial vasculature: unremarkable Soft tissues: Normal. Calvarium/osseous structures: No depressed skull fracture. Paranasal sinuses and mastoid air cells: Mild scattered paranasal sinus disease. Visualized orbits: Orbital contents are intact. IMPRESSION: No acute intracranial process. [facility], , 10/25/2023 8:48 PM
[2023-10-25] MEDS: ACETAMINOPHEN TAB 325 MG TAB PO STA (20:52)
[2023-10-25] MEDS: METOCLOPRAMIDE 5 MG/ML 2 ML VIAL IVP STA (20:54)
[2023-10-25] MEDS: DEXAMETHASONE SOD PHOSPHATE 10 MG/ML 1 ML VIAL IVP STA (20:55)
[2023-10-25] MEDS: diphenhydrAMINE 50 MG/ML 1 ML VIAL IVP STA (20:59)
[2023-10-25] MEDS: SODIUM CHLORIDE 0.9% 1,000 ML IV STA (21:00)
[2023-10-25 21:09] VITALS: RESP 18
[2023-10-25 22:23] VITALS: BP 140/89; PULSE 78; TEMP 98.1
== END 2023-10-25 22:20 | disposition home or self-care (01) ==
LOC: EC 17:13
CPT/HCPCS: 36415; 70450; 80053; 85025; 87636; 96374; 99284

== ENCOUNTER 2023-12-22 18:50 | Emergency (ER) | payer OTHER ==
[2023-12-22 18:56] VITALS: TEMP 98.2
--- NOTE | 2023-12-22 19:31 | XR ---
EXAMINATION TYPE: XR wrist complete LT DATE OF EXAM: 12/22/2023 7:21 PM COMPARISON: None CLINICAL INDICATION: Female, 33 years old with history of pain; TECHNIQUE: XR wrist complete LT; examined in the Frontal, navicular, lateral, and oblique. FINDINGS: No acute osseous pathology, joint dislocation, or joint effusion. No evidence of any soft tissue swelling is seen. IMPRESSION: No acute osseous pathology. [facility], , 12/22/2023 7:29 PM
[2023-12-22] MEDS: HYDROmorphone 1 MG/ML 1 ML SYRINGE IM STA (19:55)
[2023-12-22] MEDS: MECLIZINE 12.5 MG TAB PO STA (19:56)
--- NOTE | 2023-12-22 20:13 | CT ---
EXAMINATION TYPE: CT brain cspine wo con DATE OF EXAM: 12/22/2023 7:49 PM COMPARISON: 10/25/2023. CLINICAL INDICATION: Female, 33 years old with history of trauma; Syncope. TECHNIQUE: Brain: Multiple axial CT images of the brain were obtained without IV contrast. Cspine: Axial CT images from the skull base to the inferior aspect of T2 we obtained without intraven ous contrast. Coronal and sagittal reformatted images were also reviewed. . CT DLP: 1849.2 mGycm, Automated exposure control for dose reduction was used. FINDINGS: Brain: Extra-axial spaces: No abnormal extra-axial fluid collections. Ventricular system: Within normal limits Cerebral parenchyma: No acute intraparenchymal hemorrhage or mass effect. The lange-white junction is well differentiated. Cerebellum: Unremarkable. Mass effect: No evidence of midline shift. Intracranial vasculature: unremarkable Soft tissues: Normal. Calvarium/osseous structures: No depressed skull fracture. Paranasal sinuses and mastoid air cells: Clear. Visualized orbits: Orbital contents are intact. Cervical spine: Fracture: None. Osseous structures: Unremarkable Vertebral alignment: Within normal limits. Spinal canal/Neural Foramina: No evidence of significant spinal canal narrowing. No evidence for sign ificant neural foraminal stenosis. Neck soft tissues: Prevertebral soft tissues are within normal limits. Other: The airway is patent. The lung apices are clear. IMPRESSION: * No acute intracranial process. * No evidence of cervical spine fracture. [facility], , 12/22/2023 8:11 PM
--- NOTE | 2023-12-22 20:19 | ED ---
General Adult HPI - General Chief complaint: Extremity Injury, Upper Stated complaint: Dizziness,Fall-L wrist injury Time Seen by Provider: 12/22/23 19:04 Source: patient, RN notes reviewed Mode of arrival: ambulatory Limitations: no limitations - History of Present Illness Initial comments: 33-year-old female presents emergency department complaint of left wrist injury, head injury. Patient states she has been dizzy states that she moved quickly states that she became very dizzy and passed out. She states she fell the ground. She states she does complain of head, neck and left wrist pain. Patient denies any chest pain no palpitations she states generalized dizziness with movement. - Related Data Previous Rx's Medication Instructions Recorded Citalopram Hydrobromide [CeleXA] 20 mg PO DAILY 30 Days #30 tab 03/24/19 Levothyroxine Sodium [Synthroid] 50 mcg PO DAILY@0630 30 Days #30 03/24/19 tab hydroCHLOROthiazide [Hydrodiuril] 12.5 mg PO DAILY 30 Days #30 cap 03/24/19 lamoTRIgine [LaMICtal] 25 mg PO BID 30 Days #60 tab 03/24/19 lisinopriL 20 mg PO DAILY #30 tab 03/24/19 traZODone HCL [Desyrel] 50 mg PO HS 30 Days #30 tab 03/24/19 Cyclobenzaprine [Flexeril] 10 mg PO TID PRN #15 tab 05/22/20 Amoxicillin 875 mg PO Q12HR 5 Days #10 tablet 06/30/21 Famotidine 40 mg PO HS #28 tab 06/30/21 Ofloxacin 0.3% Otic Soln [Floxin 10 drops BOTH EARS QAM 7 Days #10 06/30/21 0.3% Otic Soln] ml HYDROcodone/APAP 7.5-325MG [[place] 1 tab PO Q4HR PRN 3 Days #18 tab 08/16/21 7.5-325] predniSONE [Deltasone] 60 mg PO DAILY #21 tab 10/25/23 Allergies Allergy/AdvReac Type Severity Reaction Status Date / Time betaine [Betaine] Allergy Contact Verified 10/25/23 17:18 Blisters chlorhexidine Allergy Contact Verified 10/25/23 17:18 [From Hibiclens] Blisters gluten Allergy Unknown Verified 10/25/23 17:18 Iodinated Contrast Media Allergy Rash/Hives Verified 10/25/23 17:18 latex Allergy CONTACT Verified 10/25/23 17:18 BLISTERS sutures Allergy Unknown Uncoded 10/25/23 17:18 tape Allergy Rash/Hives Uncoded 10/25/23 17:18 Review of Systems ROS Statement: Those systems with pertinent positive or pertinent negative responses have been documented in the HPI. ROS Other: All systems not noted in ROS Statement are negative. Past Medical History Past Medical History: Asthma, Hypertension, Thyroid Disorder Additional Past Medical History / Comment(s): severe chronic diarrhea for past several years, alan's palsy History of Any Multi-Drug Resistant Organisms: None Reported Past Surgical History: Appendectomy, Cholecystectomy, Ear Surgery Additional Past Surgical History / Comment(s): fistula removed rt ear, umbilical reconstruction r/t non healing surgical wound Past Anesthesia/Blood Transfusion Reactions: No Reported Reaction Past Psychological History: Anxiety, Bipolar, Depression Smoking Status: Former smoker Past Alcohol Use History: Occasional Past Drug Use History: Marijuana General Exam Limitations: no limitations General appearance: alert, in no apparent distress Head exam: Present: atraumatic, normocephalic, normal inspection Eye exam: Present: normal appearance, PERRL, EOMI. Absent: scleral icterus, conjunctival injection, periorbital swelling ENT exam: Present: normal exam, mucous membranes moist Neck exam: Present: normal inspection, full ROM. Absent: tenderness, meningismus, lymphadenopathy Respiratory exam: Present: normal lung sounds bilaterally. Absent: respiratory distress, wheezes, rales, rhonchi, stridor Cardiovascular Exam: Present: regular rate, normal rhythm, normal heart sounds. Absent: systolic murmur, diastolic murmur, rubs, gallop, clicks Extremities exam: Present: full ROM, tenderness, normal capillary refill. Absent: normal inspection (Moderate left wrist tenderness, swelling noted), pedal edema, joint swelling, calf tenderness Back exam: Present: normal inspection, full ROM. Absent: tenderness, paraspinal tenderness, vertebral tenderness Neurological exam: Present: alert, oriented X3, CN II-XII intact, reflexes normal. Absent: motor sensory deficit Skin exam: Present: warm, dry, intact, normal color. Absent: rash Course Vital Signs 12/22/23 12/22/23 18:51 19:25 Temperature 98.2 F Pulse Rate 78 Respiratory 20 Rate Blood Pressure 200/119 134/80 O2 Sat by Pulse 98 Oximetry EKG Findings - EKG Comments: EKG Findings:: EKG performed at 19: 36 sinus rhythm rate of 71 CO 180 QRS 86 QT/QTc 429/452 - EKG Results: EKG: interpreted by SARAH Medical Decision Making - Medical Decision Making Was pt. sent in by a medical professional or institution (, PA, SEC REPORTING CONSULTANT, urgent care, hospital, or assisted...) When possible be specific @ -No Did you speak to anyone other than the patient for history (EMS, parent, family, police, friend...)? What history was obtained from this source @ -No Did you review nursing and triage notes (agree or disagree)? Why? @ -I reviewed and agree with nursing and triage notes Were old charts reviewed (outside hosp., previous admission, EMS record, old EKG, old radiological studies, urgent care reports/EKG's, assisted records)? Report findings @ -No old charts were reviewed Differential Diagnosis (chest pain, altered mental status, abdominal pain women, abdominal pain men, vaginal bleeding, weakness, fever, dyspnea, syncope, headache, dizziness, GI bleed, back pain, seizure, CVA, palpatations, mental health, musculoskeletal)? @ -Differential Syncope: Valvular disease, hypertrophic cardiomyopathy, pulmonary embolism, tamponade, tachycardia, bradycardia, [place], hypovolemia, hemorrhage, dissection, anemia, intra cranial hemorrhage, seizure, hypoglycemia, carbon monoxide poisoning, this is not meant to be an all-inclusive list. EKG interpreted by me (3pts min.). @ -As above X-rays interpreted by me (1pt min.). @ -X-ray left wrist shows no acute fracture CT interpreted by me (1pt min.). @ -CT brain, C-spine showing no acute intracranial hemorrhage, mass effect or cervical fracture U/S interpreted by me (1pt. min.). @ -None done What testing was considered but not performed or refused? (CT, X-rays, U/S, labs)? Why? @ -None What meds were considered but not given or refused? Why? @ -None Did you discuss the management of the patient with other professionals (professionals i.e. , PA, SEC REPORTING CONSULTANT, lab, RT, psych nurse, family welfare social work professor, wholesale representative, teacher, purchasing officer, mattress spring encaser)? Give summary @ -No Was smoking cessation discussed for >3mins.? @ -No Was critical care preformed (if so, how long)? @ -No Were there social determinants of health that impacted care today? How? (Homelessness, low income, unemployed, alcoholism, drug addiction, transportation, low edu. Level, literacy, decrease access to med. care, alf, rehab)? @ -No Was there de-escalation of care discussed even if they declined (Discuss DNR or withdrawal of care, Hospice)? DNR status @ -No What co-morbidities impacted this encounter? (DM, HTN, Smoking, COPD, CAD, Cancer, CVA, ARF, Chemo, Hep., AIDS, mental health diagnosis, sleep apnea, morbid obesity)? @ -None Was patient admitted / discharged? Hospital course, mention meds given and route, prescriptions, significant lab abnormalities, going to OR and other pertinent info. @ -Discharge patient presented after having some vertigo symptoms, fall with injury. Patient did have severe mechanism of injury requiring CT. Patient had negative workup patient feels improved to be discharged in stable condition. Undiagnosed new problem with uncertain prognosis? @ -No Drug Therapy requiring intensive monitoring for toxicity (Heparin, Nitro, Insulin, Cardizem)? @ -No Were any procedures done? @ -No Diagnosis/symptom? @ -Left wrist sprain, vertigo, syncope Acute, or Chronic, or Acute on Chronic? @ -Acute Uncomplicated (without systemic symptoms) or Complicated (systemic symptoms)? @ -uncomplicated Side effects of treatment? @ -No Exacerbation, Progression, or Severe Exacerbation? @ -No Poses a threat to life or bodily function? How? (Chest pain, [place], [place], pneumonia, PE, COPD, DKA, ARF, appy, cholecystitis, CVA, Diverticulitis, Homicidal, Suicidal, threat to staff... and all critical care pts) @ -No Disposition Clinical Impression: Vertigo, Syncope, Left wrist sprain Disposition: HOME SELF-CARE Condition: Stable Instructions (If sedation given, give patient instructions): Wrist Injury (ED) Additional Instructions: Please return to the Emergency Department if symptoms worsen or any other concerns. Is patient prescribed a controlled substance at d/c from ED?: No Referrals: Sandi Bustillos MD [Primary Care Provider] - 1-2 days Time of Disposition: 20:19
[2023-12-22 20:50] VITALS: BP 146/89; PULSE 75; RESP 19
== END 2023-12-22 20:50 | disposition home or self-care (01) ==
LOC: EC 18:50
DX: S63.502A Unspecified sprain of left wrist, initial encounter (principal); R55 Syncope and collapse; R42 Dizziness and giddiness; Z87.891 Personal history of nicotine dependence; Z91.040 Latex allergy status; Z91.041 Radiographic dye allergy status; Z88.8 Allergy status to other drugs, medicaments and biological substances; W18.30XA Fall on same level, unspecified, initial encounter
CPT/HCPCS: 93005; 73110; 72125; 70450; 99284; 96372; J1171

== ENCOUNTER 2023-12-23 20:36 | Emergency (ER) | payer OTHER ==
[2023-12-23 20:45] VITALS: RESP 18
--- NOTE | 2023-12-23 20:50 | ED ---
Dizziness HPI - General Chief Complaint: Dizziness Stated Complaint: dizziness Time Seen by Provider: 12/23/23 20:50 Source: patient, RN notes reviewed Mode of arrival: wheelchair Limitations: no limitations - History of Present Illness Initial Comments: This is a 33-year-old female with hypertension and bipolar disorder presenting to the emergency department for dizziness and headache. Patient states that she was evaluated yesterday for similar complaints after a fall and was discharged home in stable condition. Patient states that she has been having a persistent headache and intermittent dizziness throughout the day. Patient has taken Tylenol, Motrin, Benadryl with minimal relief. Additionally, patient states that she has been having burning with urination over the past few days. Denies hematuria, bowel habit changes, fevers or chills. - Related Data Previous Rx's Medication Instructions Recorded Citalopram Hydrobromide [CeleXA] 20 mg PO DAILY 30 Days #30 tab 03/24/19 Levothyroxine Sodium [Synthroid] 50 mcg PO DAILY@0630 30 Days #30 03/24/19 tab hydroCHLOROthiazide [Hydrodiuril] 12.5 mg PO DAILY 30 Days #30 cap 03/24/19 lamoTRIgine [LaMICtal] 25 mg PO BID 30 Days #60 tab 03/24/19 lisinopriL 20 mg PO DAILY #30 tab 03/24/19 traZODone HCL [Desyrel] 50 mg PO HS 30 Days #30 tab 03/24/19 Cyclobenzaprine [Flexeril] 10 mg PO TID PRN #15 tab 05/22/20 Amoxicillin 875 mg PO Q12HR 5 Days #10 tablet 06/30/21 Famotidine 40 mg PO HS #28 tab 06/30/21 Ofloxacin 0.3% Otic Soln [Floxin 10 drops BOTH EARS QAM 7 Days #10 06/30/21 0.3% Otic Soln] ml HYDROcodone/APAP 7.5-325MG [[place] 1 tab PO Q4HR PRN 3 Days #18 tab 08/16/21 7.5-325] predniSONE [Deltasone] 60 mg PO DAILY #21 tab 10/25/23 Acetaminophen [Acetaminophen 8 hr] 650 mg PO Q8H #21 tab 12/23/23 Ibuprofen [Motrin] 800 mg PO Q6HR #30 tab 12/23/23 Allergies Allergy/AdvReac Type Severity Reaction Status Date / Time betaine [Betaine] Allergy Contact Verified 12/23/23 20:45 Blisters chlorhexidine Allergy Contact Verified 12/23/23 20:45 [From Hibiclens] Blisters gluten Allergy Unknown Verified 12/23/23 20:45 Iodinated Contrast Media Allergy Rash/Hives Verified 12/23/23 20:45 latex Allergy CONTACT Verified 12/23/23 20:45 BLISTERS sutures Allergy Unknown Uncoded 12/23/23 20:45 tape Allergy Rash/Hives Uncoded 12/23/23 20:45 Review of Systems ROS Statement: Those systems with pertinent positive or pertinent negative responses have been documented in the HPI. ROS Other: All systems not noted in ROS Statement are negative. Past Medical History Past Medical History: Asthma, Hypertension, Thyroid Disorder Additional Past Medical History / Comment(s): severe chronic diarrhea for past several years, alan's palsy History of Any Multi-Drug Resistant Organisms: None Reported Past Surgical History: Appendectomy, Cholecystectomy, Ear Surgery Additional Past Surgical History / Comment(s): fistula removed rt ear, umbilical reconstruction r/t non healing surgical wound Past Anesthesia/Blood Transfusion Reactions: No Reported Reaction Past Psychological History: Anxiety, Bipolar, Depression Smoking Status: Former smoker Past Alcohol Use History: Occasional Past Drug Use History: Marijuana General Exam Limitations: no limitations Course Vital Signs 12/23/23 20:42 Temperature 98.0 F Pulse Rate 70 Respiratory 18 Rate Blood Pressure 139/95 O2 Sat by Pulse 92 L Oximetry Medical Decision Making - Medical Decision Making Was pt. sent in by a medical professional or institution (, PA, COOK FISHING VESSEL, urgent care, hospital, or care home...) When possible be specific @ -No Did you speak to anyone other than the patient for history (EMS, parent, family, police, friend...)? What history was obtained from this source @ -No Did you review nursing and triage notes (agree or disagree)? Why? @ -I reviewed and agree with nursing and triage notes Were old charts reviewed (outside hosp., previous admission, EMS record, old EKG, old radiological studies, urgent care reports/EKG's, care home records)? Report findings @ -CT of the brain and C-spine without contrast reveals no acute intracranial process or cervical spine fracture completed on 12/22/2023 Differential Diagnosis (chest pain, altered mental status, abdominal pain women, abdominal pain men, vaginal bleeding, weakness, fever, dyspnea, syncope, headache, dizziness, GI bleed, back pain, seizure, CVA, palpatations, mental health, musculoskeletal)? @ -Differential Headache: Migraine, tension, cluster, carbon monoxide, central venous thrombosis, pension karma temporal arteritis, acute closure glaucoma, intercranial hemorrhage, mastoiditis, sinusitis, head injury, this is not meant to be an all-inclusive list. EKG interpreted by me (3pts min.). @ -completed at 2113 sinus rhythm with sinus arrhythmia, ventricular rate 63, SD interval 174, QRS 88, QTc 455. X-rays interpreted by me (1pt min.). @ -None done CT interpreted by me (1pt min.). @ -None done U/S interpreted by me (1pt. min.). @ -None done What testing was considered but not performed or refused? (CT, X-rays, U/S, labs)? Why? @ -None What meds were considered but not given or refused? Why? @ -None Did you discuss the management of the patient with other professionals (dong ortiz i.e. , PA, COOK FISHING VESSEL, lab, RT, psych nurse, school social worker, filterer, teacher, classification officer, case mgr)? Give summary @ -No Was smoking cessation discussed for >3mins.? @ -No Was critical care preformed (if so, how long)? @ -No Were there social determinants of health that impacted care today? How? (Homelessness, low income, unemployed, alcoholism, drug addiction, transportation, low edu. Level, literacy, decrease access to med. care, longterm, rehab)? @ -No Was there de-escalation of care discussed even if they declined (Discuss DNR or withdrawal of care, Hospice)? DNR status @ -No What co-morbidities impacted this encounter? (DM, HTN, Smoking, COPD, CAD, Cancer, CVA, ARF, Chemo, Hep., AIDS, mental health diagnosis, sleep apnea, morbid obesity)? @ -None Was patient admitted / discharged? Hospital course, mention meds given and route, prescriptions, significant lab abnormalities, going to OR and other pertinent info. @ -Discharge. 33-year-old female with headache, dizziness, urinary complaints. On my evaluation patient does complain no signs acute distress. Vitals are stable. Patient's neurological examination no acute deficits. Patient laboratory testing including CBC, CMP, urinalysis unremarkable. EKG sinus rhythm. On reevaluation, patient symptoms have mildly improved. Discussed with patient at bedside strict return parameters and she has verbalized understanding. discussed with Dr. Rm. Undiagnosed new problem with uncertain prognosis? @ -No Drug Therapy requiring intensive monitoring for toxicity (Heparin, Nitro, Insulin, Cardizem)? @ -No Were any procedures done? @ -No Diagnosis/symptom? @ -concussion, headache Acute, or Chronic, or Acute on Chronic? @ -acute Uncomplicated (without systemic symptoms) or Complicated (systemic symptoms)? @ -uncomplicated Side effects of treatment? @ -No Exacerbation, Progression, or Severe Exacerbation? @ -No Poses a threat to life or bodily function? How? (Chest pain, [place], [place], pneumonia, PE, COPD, DKA, ARF, appy, cholecystitis, CVA, Diverticulitis, Homicidal, Suicidal, threat to staff... and all critical care pts) @ -No - Lab Data Result diagrams: 12/23/23 21:06 12/23/23 21:06 Lab Results 12/23/23 12/23/23 12/23/23 Range/Units 21:06 21:06 21:06 WBC 7.5 (3.8-10.6) k/uL RBC 4.95 (3.80-5.40) m/uL Hgb 13.3 (11.4-16.0) gm/dL Hct 39.5 (34.0-46.0) % MCV 79.8 L (80.0-100.0) fL MCH 26.8 (25.0-35.0) pg MCHC 33.6 (31.0-37.0) g/dL RDW 13.3 (11.5-15.5) % Plt Count 243 (150-450) k/uL MPV 7.1 Neutrophils % 50 % Lymphocytes % 38 % Monocytes % 6 % Eosinophils % 3 % Basophils % 1 % Neutrophils # 3.8 (1.3-7.7) k/uL Lymphocytes # 2.9 (1.0-4.8) k/uL Monocytes # 0.4 (0-1.0) k/uL Eosinophils # 0.2 (0-0.7) k/uL Basophils # 0.1 (0-0.2) k/uL Sodium 138 (137-145) mmol/L Potassium 3.5 (3.5-5.1) mmol/L Chloride 105 (98-107) mmol/L Carbon Dioxide 29 (22-30) mmol/L Anion Gap 4 mmol/L BUN 12 (7-17) mg/dL Creatinine 0.60 (0.52-1.04) mg/dL Est GFR (CKD-EPI)AfAm >90 (>60 ml/min/1.73 sqM) Est GFR (CKD-EPI)NonAf >90 (>60 ml/min/1.73 sqM) Glucose 87 (74-99) mg/dL Calcium 9.5 (8.4-10.2) mg/dL Magnesium 1.9 (1.6-2.3) mg/dL Total Bilirubin 0.5 (0.2-1.3) mg/dL AST 42 H (14-36) U/L ALT 52 H (4-34) U/L Alkaline Phosphatase 55 (38-126) U/L Total Protein 6.7 (6.3-8.2) g/dL Albumin 4.0 (3.5-5.0) g/dL Urine Color Colorless Urine Appearance Clear (Clear) Urine pH 6.0 (5.0-8.0) Ur Specific [place] 1.014 (1.001-1.035) Urine Protein Negative (Negative) Urine Glucose (UA) Negative (Negative) Urine Ketones Negative (Negative) Urine Blood Negative (Negative) Urine Nitrite Negative (Negative) Urine Bilirubin Negative (Negative) Urine Urobilinogen <2.0 (<2.0) mg/dL Ur Leukocyte Esterase Negative (Negative) Disposition Clinical Impression: Concussion Disposition: HOME SELF-CARE Condition: Stable Instructions (If sedation given, give patient instructions): Concussion (ED) Additional Instructions: Please return to the Emergency Department if symptoms worsen or any other concerns. Review associated handout regarding concussion. Continue brain rest such as minimizing screen time, rest, use Tylenol Motrin as needed. Prescriptions: Acetaminophen [Acetaminophen 8 hr] 650 mg PO Q8H #21 tab Ibuprofen [Motrin] 800 mg PO Q6HR #30 tab Is patient prescribed a controlled substance at d/c from ED?: No Referrals: Sandi Bustillos MD [Primary Care Provider] - 1-2 days Time of Disposition: 22:28
[2023-12-23 21:14] LABS: Basophils # (A) 0.1 k/uL (0-0.2); Basophils % (A) 1 %; Eosinophils # (A) 0.2 k/uL (0-0.7); Eosinophils % (A) 3 %; HCT 39.5 % (34.0-46.0); HGB 13.3 gm/dL (11.4-16.0); Lymphocytes # (A) 2.9 k/uL (1.0-4.8); Lymphocytes % (A) 38 %; MCH 26.8 pg (25.0-35.0); MCHC 33.6 g/dL (31.0-37.0); MCV 79.8 fL (80.0-100.0); Mean Platelet Volume 7.1; Monocytes # (A) 0.4 k/uL (0-1.0); Monocytes % (A) 6 %; Neutrophils # (A) 3.8 k/uL (1.3-7.7); Neutrophils % (A) 50 %; Platelet Count 243 k/uL (150-450); RBC 4.95 m/uL (3.80-5.40); RDW 13.3 % (11.5-15.5); WBC 7.5 k/uL (3.8-10.6)
[2023-12-23 21:25] LABS: ALT 52 U/L (4-34); AST 42 U/L (14-36); African American GFR (CKD) >90 (>60 ml/min/1.73 sqM); Alkaline Phosphatase 55 U/L (38-126); Anion Gap 4 mmol/L; Blood Urea Nitrogen 12 mg/dL (7-17); Calcium 9.5 mg/dL (8.4-10.2); Carbon Dioxide 29 mmol/L (22-30); Chloride 105 mmol/L (98-107); Glucose 87 mg/dL (74-99); Magnesium 1.9 mg/dL (1.6-2.3); Non-African American GFR(CKD) >90 (>60 ml/min/1.73 sqM); Potassium 3.5 mmol/L (3.5-5.1); Sodium 138 mmol/L (137-145); Total Bilirubin 0.5 mg/dL (0.2-1.3); Total Protein 6.7 g/dL (6.3-8.2)
[2023-12-23] MEDS: ACETAMINOPHEN TAB 325 MG TAB PO STA (21:25)
[2023-12-23] MEDS: MECLIZINE 12.5 MG TAB PO STA (21:26)
[2023-12-23] MEDS: SODIUM CHLORIDE 0.9% 1,000 ML IV STA (21:27)
[2023-12-23] MEDS: diphenhydrAMINE 50 MG/ML 1 ML VIAL IVP STA (21:27)
[2023-12-23] MEDS: KETOROLAC 15 MG/ML 1 ML VIAL IVP STA (21:27)
[2023-12-23 22:19] LABS: Appearance,Urine Clear (Clear); Bilirubin,Urine Negative (Negative); Blood,Urine Negative (Negative); Color,Urine Colorless; Glucose,Urine (UA) Negative (Negative); Ketones,Urine Negative (Negative); Leukocyte Esterase,Urine Negative (Negative); Nitrite,Urine Negative (Negative); Protein,Urine Negative (Negative); Specific Gravity,Urine 1.014 (1.001-1.035); Urobilinogen,Urine <2.0 mg/dL (<2.0)
[2023-12-23 22:54] VITALS: BP 139/88; PULSE 61; TEMP 98.3
== END 2023-12-23 22:54 | disposition home or self-care (01) ==
LOC: EC 20:36
DX: S06.0XAA Concussion with loss of consciousness status unknown, initial encounter (principal); I49.8 Other specified cardiac arrhythmias; R40.2362 Coma scale, best motor response, obeys commands, at arrival to emergency department; R40.2442 Other coma, without documented Glasgow coma scale score, or with partial score reported, at arrival to emergency department; R40.2142 Coma scale, eyes open, spontaneous, at arrival to emergency department; Z91.040 Latex allergy status; Z91.041 Radiographic dye allergy status; Z88.8 Allergy status to other drugs, medicaments and biological substances; Z87.891 Personal history of nicotine dependence; W19.XXXA Unspecified fall, initial encounter
CPT/HCPCS: 36415; 93005; 80053; 83735; 85025; 81003; 99285; 96374; 96375; 96361; J1200; J1885

== ENCOUNTER 2024-01-07 23:42 | Emergency (ER) | payer OTHER ==
[2024-01-08 00:02] VITALS: BP 138/88; PULSE 85; RESP 18; TEMP 98.8
[2024-01-08] MEDS: METOCLOPRAMIDE 5 MG/ML 2 ML VIAL IM STA (02:26)
[2024-01-08] MEDS: KETOROLAC 15 MG/ML 1 ML VIAL IM STA (02:26)
[2024-01-08] MEDS: diphenhydrAMINE 50 MG/ML 1 ML VIAL IM STA (02:26)
--- NOTE | 2024-01-08 03:37 | ED ---
Headache HPI - General Chief Complaint: Headache Stated Complaint: Migraine, loss of vision Time Seen by Provider: 01/08/24 00:27 Mode of arrival: ambulatory - History of Present Illness Initial Comments: This patient is a 33-year-old woman with history of migraine headaches, who comes to have evaluation and treatment for which she states is a flareup of her typical migraine. She states that it did not respond to her home medication. She is not having any new symptoms. She has not had fever or chills. No neck pain or stiffness. No neurologic symptoms MD Complaint: "migraine" -: hour(s) Onset Description: gradual Location: frontal Severity: moderate Quality: aching Consistency: constant Improves With: nothing Worsens With: light Context: occurred at rest Associated Symptoms: nausea Treatments Prior to Arrival: other - Related Data Previous Rx's Medication Instructions Recorded Citalopram Hydrobromide [CeleXA] 20 mg PO DAILY 30 Days #30 tab 03/24/19 Levothyroxine Sodium [Synthroid] 50 mcg PO DAILY@0630 30 Days #30 03/24/19 tab hydroCHLOROthiazide [Hydrodiuril] 12.5 mg PO DAILY 30 Days #30 cap 03/24/19 lamoTRIgine [LaMICtal] 25 mg PO BID 30 Days #60 tab 03/24/19 lisinopriL 20 mg PO DAILY #30 tab 03/24/19 traZODone HCL [Desyrel] 50 mg PO HS 30 Days #30 tab 03/24/19 Cyclobenzaprine [Flexeril] 10 mg PO TID PRN #15 tab 05/22/20 Amoxicillin 875 mg PO Q12HR 5 Days #10 tablet 06/30/21 Famotidine 40 mg PO HS #28 tab 06/30/21 Ofloxacin 0.3% Otic Soln [Floxin 10 drops BOTH EARS QAM 7 Days #10 06/30/21 0.3% Otic Soln] ml HYDROcodone/APAP 7.5-325MG [[place] 1 tab PO Q4HR PRN 3 Days #18 tab 08/16/21 7.5-325] predniSONE [Deltasone] 60 mg PO DAILY #21 tab 10/25/23 Acetaminophen [Acetaminophen 8 hr] 650 mg PO Q8H #21 tab 12/23/23 Ibuprofen [Motrin] 800 mg PO Q6HR #30 tab 12/23/23 Allergies Allergy/AdvReac Type Severity Reaction Status Date / Time betaine [Betaine] Allergy Contact Verified 01/08/24 00:03 Blisters chlorhexidine Allergy Contact Verified 01/08/24 00:03 [From Hibiclens] Blisters gluten Allergy Unknown Verified 01/08/24 00:03 Iodinated Contrast Media Allergy Rash/Hives Verified 01/08/24 00:03 latex Allergy CONTACT Verified 01/08/24 00:03 BLISTERS sutures Allergy Unknown Uncoded 01/08/24 00:03 tape Allergy Rash/Hives Uncoded 01/08/24 00:03 Review of Systems ROS Statement: Those systems with pertinent positive or pertinent negative responses have been documented in the HPI. ROS Other: All systems not noted in ROS Statement are negative. Constitutional: Denies: fever, chills, weakness Eyes: Denies: eye pain, vision change ENT: Denies: ear pain, hearing loss Respiratory: Denies: cough, dyspnea Cardiovascular: Denies: chest pain, syncope Gastrointestinal: Reports: nausea. Denies: abdominal pain, vomiting Musculoskeletal: Denies: back pain Neurological: Reports: headache. Denies: weakness, numbness, paresthesias, confusion Past Medical History Past Medical History: Asthma, Hypertension, Thyroid Disorder Additional Past Medical History / Comment(s): severe chronic diarrhea for past several years, alan's palsy History of Any Multi-Drug Resistant Organisms: None Reported Past Surgical History: Appendectomy, Cholecystectomy, Ear Surgery Additional Past Surgical History / Comment(s): fistula removed rt ear, umbilical reconstruction r/t non healing surgical wound Past Anesthesia/Blood Transfusion Reactions: No Reported Reaction Past Psychological History: Anxiety, Bipolar, Depression Smoking Status: Former smoker Past Alcohol Use History: Occasional Past Drug Use History: Marijuana General Exam General appearance: alert, in no apparent distress Head exam: Present: atraumatic, normocephalic Eye exam: Present: normal appearance, PERRL, EOMI. Absent: scleral icterus, conjunctival injection ENT exam: Present: normal oropharynx, TM's normal bilaterally Neck exam: Present: normal inspection, full ROM. Absent: tenderness, meni ngismus GI/Abdominal exam: Present: soft. Absent: tenderness Extremities exam: Present: normal inspection Back exam: Present: normal inspection. Absent: vertebral tenderness Neurological exam: Present: alert, oriented X3, CN II-XII intact. Absent: motor sensory deficit Skin exam: Present: warm, dry, intact, normal color. Absent: rash Course Vital Signs 01/07/24 23:59 Temperature 98.8 F Pulse Rate 85 Respiratory 18 Rate Blood Pressure 138/88 O2 Sat by Pulse 95 Oximetry Medical Decision Making - Medical Decision Making Was pt. sent in by a medical professional or institution (, JENNY, HUMAN RESOURCES RECORDS CLERK, urgent care, hospital, or detention...) When possible be specific @ -[No] Did you speak to anyone other than the patient for history (EMS, parent, family, police, friend...)? What history was obtained from this source @ -[No] Did you review nursing and triage notes (agree or disagree)? Why? @ -[I reviewed and agree with nursing and triage notes] Were old charts reviewed (outside hosp., previous admission, EMS record, old EKG, old radiological studies, urgent care reports/EKG's, detention records)? Report findings @ -[No old charts were reviewed] Differential Diagnosis (chest pain, altered mental status, abdominal pain women, abdominal pain men, vaginal bleeding, weakness, fever, dyspnea, syncope, headache, dizziness, GI bleed, back pain, seizure, CVA, palpatations, mental health, musculoskeletal)? @ -[Differential Headache: Migraine, tension, cluster, carbon monoxide, central venous thrombosis, pension karma temporal arteritis, acute closure glaucoma, intercranial hemorrhage, mastoiditis, sinusitis, head injury, this is not meant to be an all-inclusive list. EKG interpreted by me (3pts min.). @ -[As above] X-rays interpreted by me (1pt min.). @ -[None done] CT interpreted by me (1pt min.). @ -[None done] U/S interpreted by me (1pt. min.). @ -[None done] What testing was considered but not performed or refused? (CT, X-rays, U/S, labs)? Why? @ -[None] What meds were considered but not given or refused? Why? @ -[None] Did you discuss the management of the patient with other professionals (professionals i.e. , JENNY, HUMAN RESOURCES RECORDS CLERK, lab, RT, psych nurse, social work associate, supervisor [employer], teacher, patient transport officer, protective services case worker)? Give summary @ -[No] Was smoking cessation discussed for >3mins.? @ -[No] Was critical care preformed (if so, how long)? @ -[No] Were there social determinants of health that impacted care today? How? (Homelessness, low income, unemployed, alcoholism, drug addiction, transportation, low edu. Level, literacy, decrease access to med. care, assisted, rehab)? @ -[No] Was there de-escalation of care discussed even if they declined (Discuss DNR or withdrawal of care, Hospice)? DNR status @ -[No] What co-morbidities impacted this encounter? (DM, HTN, Smoking, COPD, CAD, Cancer, CVA, ARF, Chemo, Hep., AIDS, mental health diagnosis, sleep apnea, morbid obesity)? @ -[History of headaches Was patient admitted / discharged? Hospital course, mention meds given and route, prescriptions, significant lab abnormalities, going to OR and other pertinent info. @ -[Patient is a 33-year-old woman presenting with typical for her headache which was not responding to outpatient treatment. She did have relief of symptoms with treatment here. She is feeling better and would like to go home. Undiagnosed new problem with uncertain prognosis? @ -[No] Drug Therapy requiring intensive monitoring for toxicity (Heparin, Nitro, Insulin, Cardizem)? @ -[No] Were any procedures done? @ -[No] Diagnosis/symptom? @ -[Acute migraine headache Acute, or Chronic, or Acute on Chronic? @ -[Acute Uncomplicated (without systemic symptoms) or Complicated (systemic symptoms)? @ -[Uncomplicated Side effects of treatment? @ -[No] Exacerbation, Progression, or Severe Exacerbation? @ -[No] Poses a threat to life or bodily function? How? (Chest pain, [place], [place], pneumonia, PE, COPD, DKA, ARF, appy, cholecystitis, CVA, Diverticulitis, Homicidal, Suicidal, threat to staff... and all critical care pts) @ -[No] Disposition Clinical Impression: Headache Disposition: HOME SELF-CARE Condition: Good Instructions (If sedation given, give patient instructions): Acute Headache (ED) Is patient prescribed a controlled substance at d/c from ED?: No Referrals: Sandi Bustillos MD [Primary Care Provider] - 1-2 days Sophy Moran MD [REFERRING] - 1-2 days
== END 2024-01-08 04:08 | disposition home or self-care (01) ==
LOC: EC 23:42
DX: G43.909 Migraine, unspecified, not intractable, without status migrainosus (principal); Z87.891 Personal history of nicotine dependence; Z91.040 Latex allergy status; Z91.041 Radiographic dye allergy status; Z88.8 Allergy status to other drugs, medicaments and biological substances
CPT/HCPCS: 99283; 96372; J1200; J2765; J1885

== ENCOUNTER 2024-01-22 20:06 | Emergency (ER) | payer OTHER ==
[2024-01-22 20:11] VITALS: TEMP 97.8
--- NOTE | 2024-01-22 20:44 | ED ---
Headache HPI - General Chief Complaint: Headache Stated Complaint: Migraine Time Seen by Provider: 01/22/24 20:21 Source: patient, RN notes reviewed Mode of arrival: ambulatory Limitations: no limitations - History of Present Illness Initial Comments: This is a 33-year-old female with history of pseudotumor cerebri and migraine headaches presenting to the emergency department for chief complaint of a migraine that has been worsening over the past 4 days. Patient states that she was evaluated earlier in the week at [facility] where spinal tap was performed. She is following outpatient with neurologist with scheduled MRI. She endorses nausea, photophobia, visual auras. Denies fevers, chills, chest pain, shortness of breath, difficulty breathing. Patient took 600 mg of ibuprofen approximately 3 hours prior to arrival. - Related Data Home Medications Medication Instructions Recorded Confirmed Albuterol Inhaler [Ventolin Hfa 1 puff INHALATION RT-Q4H PRN 01/22/24 01/22/24 Inhaler] Ascorbic Acid [Vitamin C] 500 mg PO DAILY 01/22/24 01/22/24 Carboxymethylcellulose Sodium 2 drops BOTH EYES BID PRN 01/22/24 01/22/24 [Refresh Tears] Cholecalciferol (Vitamin D3) 50 mcg PO DAILY 01/22/24 01/22/24 [Vitamin D3 (50 Mcg = 2000 Iu)] Dicyclomine [Bentyl] 10 mg PO TID 01/22/24 01/22/24 Escitalopram [Lexapro] 20 mg PO DAILY 01/22/24 01/22/24 Folate 666mcg 666 mcg PO DAILY 01/22/24 01/22/24 Ibuprofen [Motrin] 800 mg PO Q6HR PRN 01/22/24 01/22/24 Meclizine [Antivert] 25 mg PO BID 01/22/24 01/22/24 Super B Complex 1 tab PO DAILY 01/22/24 01/22/24 amLODIPine [Norvasc] 2.5 mg PO DAILY 01/22/24 01/22/24 busPIRone HCl [Buspar] 10 mg PO TID 01/22/24 01/22/24 hydrOXYzine pamoate [Vistaril] 50 mg PO HS 01/22/24 01/22/24 lamoTRIgine 200 mg PO DAILY 01/22/24 01/22/24 lisinopriL [Zestril] 10 mg PO DAILY 01/22/24 01/22/24 traZODone HCL [Desyrel] 200 mg PO HS 01/22/24 01/22/24 Previous Rx's Medication Instructions Recorded hydroCHLOROthiazide [Hydrodiuril] 12.5 mg PO DAILY 30 Days #30 cap 03/24/19 Allergies Allergy/AdvReac Type Severity Reaction Status Date / Time betaine [Betaine] Allergy Contact Verified 01/22/24 20:36 Blisters chlorhexidine Allergy Contact Verified 01/22/24 20:36 [From Hibiclens] Blisters gluten Allergy Nausea & Verified 01/22/24 20:36 Vomiting & Diarrhea Iodinated Contrast Media Allergy Rash/Hives Verified 01/22/24 20:36 latex Allergy CONTACT Verified 01/22/24 20:36 BLISTERS sutures Allergy Rash/Hives Uncoded 01/22/24 20:36 tape Allergy Rash/Hives Uncoded 01/22/24 20:36 Review of Systems ROS Statement: Those systems with pertinent positive or pertinent negative responses have been documented in the HPI. ROS Other: All systems not noted in ROS Statement are negative. Past Medical History Past Medical History: Asthma, Hypertension, Thyroid Disorder Additional Past Medical History / Comment(s): severe chronic diarrhea for past several years, alan's palsy History of Any Multi-Drug Resistant Organisms: None Reported Past Surgical History: Appendectomy, Cholecystectomy, Ear Surgery Additional Past Surgical History / Comment(s): fistula removed rt ear, umbilical reconstruction r/t non healing surgical wound Past Anesthesia/Blood Transfusion Reactions: No Reported Reaction Past Psychological History: Anxiety, Bipolar, Depression Smoking Status: Former smoker Past Alcohol Use History: Occasional Past Drug Use History: Marijuana General Exam Limitations: no limitations General appearance: alert, in no apparent distress Eye exam: Present: normal appearance, PERRL, EOMI. Absent: scleral icterus, conjunctival injection, periorbital swelling Neck exam: Present: normal inspection. Absent: tenderness, meningismus, lymphadenopathy Respiratory exam: Present: normal lung sounds bilaterally. Absent: respiratory distress, wheezes, rales, rhonchi, stridor Cardiovascular Exam: Present: regular rate, normal rhythm, normal heart sounds. Absent: systolic murmur, diastolic murmur, rubs, gallop, clicks GI/Abdominal exam: Present: soft, normal bowel sounds. Absent: distended, tenderness, guarding, rebound, rigid Extremities exam: Present: normal inspection, full ROM, normal capillary refill. Absent: tenderness, pedal edema, joint swelling, calf tenderness Neurological exam: Present: alert, oriented X3, CN II-XII intact Course Vital Signs 01/22/24 20:09 Temperature 97.8 F Pulse Rate 96 Respiratory 20 Rate Blood Pressure 169/86 O2 Sat by Pulse 95 Oximetry Medical Decision Making - Medical Decision Making Was pt. sent in by a medical professional or institution (, PA, BUCKRAM SEWER, urgent care, hospital, or [place] health care facility...) When possible be specific @ -No Did you speak to anyone other than the patient for history (EMS, parent, family, police, friend...)? What history was obtained from this source @ -No Did you review nursing and triage notes (agree or disagree)? Why? @ -I reviewed and agree with nursing and triage notes Were old charts reviewed (outside hosp., previous admission, EMS record, old EKG, old radiological studies, urgent care reports/EKG's, [place] health care facility records)? Report findings @ -Reviewed patient's previous emergency department visit note patient was treated for migraine headache and discharged home in stable condition Differential Diagnosis (chest pain, altered mental status, abdominal pain women, abdominal pain men, vaginal bleeding, weakness, fever, dyspnea, syncope, headache, dizziness, GI bleed, back pain, seizure, CVA, palpatations, mental health, musculoskeletal)? @ -[Differential Headache: Migraine, tension, cluster, carbon monoxide, central venous thrombosis, pension karma temporal arteritis, acute closure glaucoma, intercranial hemorrhage, mastoiditis, sinusitis, head injury, this is not meant to be an all-inclusive list. EKG interpreted by me (3pts min.). @ -None X-rays interpreted by me (1pt min.). @ -None done CT interpreted by me (1pt min.). @ -None done U/S interpreted by me (1pt. min.). @ -None done What testing was considered but not performed or refused? (CT, X-rays, U/S, labs)? Why? @ -CT imaging of the brain was considered but deferred at this time. Patient's symptoms are similar as when she has had migraines in the past. Additionally, patient is scheduled for outpatient MRI in the upcoming weeks. Patient did agree with deferring CT imaging at this time. What meds were considered but not given or refused? Why? @ -None Did you discuss the management of the patient with other professionals (professionals i.e. , PA, BUCKRAM SEWER, lab, RT, psych nurse, pediatric social worker, warehouse examiner, teacher, financial services officer, case management specialist)? Give summary @ -No Was smoking cessation discussed for >3mins.? @ -No Was critical care preformed (if so, how long)? @ -No Were there social determinants of health that impacted care today? How? (Homelessness, low income, unemployed, alcoholism, drug addiction, transportation, low edu. Level, literacy, decrease access to med. care, penitentiary, rehab)? @ -No Was there de-escalation of care discussed even if they declined (Discuss DNR or withdrawal of care, Hospice)? DNR status @ -No What co-morbidities impacted this encounter? (DM, HTN, Smoking, COPD, CAD, Cancer, CVA, ARF, Chemo, Hep., AIDS, mental health diagnosis, sleep apnea, morbid obesity)? @ -None Was patient admitted / discharged? Hospital course, mention meds given and route, prescriptions, significant lab abnormalities, going to OR and other pertinent info. @ -Discharge. 33-year-old female presenting for migraine headache. Vitals are stable. Neurological examination no acute deficits. Patient is provided with migraine cocktail including , Zofran, Toradol, Benadryl, and Decadron. Additionally, patient is provided with caffeine solution. On examination there is mild ecchymosis over the lumbar spine with no evidence of potential post lumbar injection infection. Patient for medication ministration, patient has sleeping comfortably. States that her headache is markedly improved and feels comfortable for discharge. Patient has follow-up scheduled with neurology. Discussed with Dr. Bridges Undiagnosed new problem with uncertain prognosis? @ -No Drug Therapy requiring intensive monitoring for toxicity (Heparin, Nitro, Insulin, Cardizem)? @ -No Were any procedures done? @ -No Diagnosis/symptom? @ -migraine headache Acute, or Chronic, or Acute on Chronic? @ -acute Uncomplicated (without systemic symptoms) or Complicated (systemic symptoms)? @ -uncomplicated Side effects of treatment? @ -No Exacerbation, Progression, or Severe Exacerbation? @ -No Poses a threat to life or bodily function? How? (Chest pain, USA, [place], pneumonia, PE, COPD, DKA, ARF, appy, cholecystitis, CVA, Diverticulitis, Homicidal, Suici carley, threat to staff... and all critical care pts) @ -No Disposition Clinical Impression: Migraine headache Disposition: HOME SELF-CARE Condition: Good Instructions (If sedation given, give patient instructions): Migraine Headache (ED) Additional Instructions: Please return to the Emergency Department if symptoms worsen or any other concerns. Is patient prescribed a controlled substance at d/c from ED?: No Referrals: Sandi Bustillos MD [Primary Care Provider] - 1-2 days Time of Disposition: 22:44
[2024-01-22] MEDS: SODIUM CHLORIDE 0.9% 1,000 ML IV STA (21:11)
[2024-01-22] MEDS: ONDANSETRON 4 MG/2 ML VIAL IVP STA (21:12)
[2024-01-22] MEDS: KETOROLAC 15 MG/ML 1 ML VIAL IVP STA (21:16)
[2024-01-22] MEDS: diphenhydrAMINE 50 MG/ML 1 ML VIAL IVP STA (21:16)
[2024-01-22] MEDS: DEXAMETHASONE SOD PHOSPHATE 10 MG/ML 1 ML VIAL IVP STA (21:17)
[2024-01-22] MEDS: CAFFEINE-SODIUM BENZOATE 500 MG in SODIUM CHLORIDE 0.9% 1,000 ML IVPB ONE (22:07)
[2024-01-23 00:02] VITALS: BP 152/92; PULSE 77; RESP 18
== END 2024-01-23 00:02 | disposition home or self-care (01) ==
LOC: EC 20:06
DX: G43.909 Migraine, unspecified, not intractable, without status migrainosus (principal); Z87.891 Personal history of nicotine dependence; Z91.040 Latex allergy status; Z88.8 Allergy status to other drugs, medicaments and biological substances; Z91.018 Allergy to other foods; Z91.041 Radiographic dye allergy status
CPT/HCPCS: 99283; 96365; 96366; 96375; 96361; J1200; J1100; J2405; J1885

== ENCOUNTER → 2024-02-04 | Outpatient (CLI) | payer OTHER ==
--- NOTE | 2024-02-08 08:09 | MM ---
Reason for Exam: Screening (asymptomatic). Last mammogram was performed 1 year(s) and 11 month(s) ago. Patient History: Menarche at age 8. First Full-Term at age 18. Hysterectomy at age 33. Patient has history of breast feeding. Maternal grandmother had breast cancer, age 28. Mother had breast cancer, age 60. Last menstrual period: 04/01/2023 Prior Study Comparison: 06/06/2015 Bilateral Screening Mammogram, [facility]. 03/10/2022 Bilateral Screening Mammogram, [facility]. Patient's first Mammogram. Tissue Density: There are scattered areas of fibroglandular density. Findings: Analyzed By CAD. The pattern is symmetrical. Scattered benign punctate calcifications are present. Benign spherical calcifications within the left breast. No suspicious groups of microcalcifications, spiculated or lobular masses, architectural distortion or other secondary signs of malignancy are mammographically apparent. Overall Assessment: Benign, BI-RAD 2 Management: Screening Mammogram of both breasts in 1 year. A negative mammogram report should not preclude additional follow up of suspicious palpable abnormalities. Patient should continue monthly self breast exam. A clinical breast exam by your physician is recommended on an annual basis and results should be correlated with mammographic findings. Note on Kathi scores and lifetime risk: 1. A Kathi score greater than 3% is considered moderate risk. If this is the case, consider specialist referral to assess eligibility for a risk reducing agent. 2. If overall lifetime risk for the development of breast cancer is 20% or higher, the patient may qualify for future screening with alternating mammogram and breast MRI. [facility], , 02/08/2024 8:06 AM. Electronically signed and approved by: Shawn Nielson D.O. Radiologis
== END | disposition home or self-care (01) ==
LOC: RADMAMWWP 09:42
PROVIDERS: ATTEND Family Medicine
DX: Z12.31 Encounter for screening mammogram for malignant neoplasm of breast (principal); R92.323 Mammographic fibroglandular density, bilateral breasts; Z80.3 Family history of malignant neoplasm of breast
CPT/HCPCS: 77063; 77067

== ENCOUNTER → 2024-02-22 | Outpatient (CLI) | payer OTHER ==
--- NOTE | 2024-02-23 09:45 | MR ---
EXAMINATION TYPE: MR brain wo/w con DATE OF EXAM: 02/22/2024 8:45 PM COMPARISON: 01/17/2013. CLINICAL INDICATION: Female, 33 years old with history of H47.333; idiopathic intracranial hypertensi on. TECHNIQUE: Multi planar, multi sequence imaging was performed through the brain including: T1, T2, In version recovery, susceptibility weighted imaging and gradient echo imaging and Diffusion weighted im aging. The patient was then given intravenous contrast and multi planar, T1 fat-saturation images wer e obtained. IV Contrast: 12 mL Gadobutrol FINDINGS: The lange-white junctions, ventricular system, basal cisterns appear unremarkable. Diffusion-weighted imaging shows no evidence of restricted diffusion to suggest acute/subacute infarct. Intracranial ar terial flow voids are maintained. Midline structures show no abnormality. The susceptibility weighted images do not reveal any evidence for micro-hemorrhage. After administration of gadolinium, no abnor mal enhancement is seen. Meckel's cave is not enlarged, today seen in the sella turcica. Pituitary da jose does have a flattened appearance in the superior margin. The transverse sinuses are patent. The v entricles are within normal limits for morphology. No enlarged record outpouchings identified. The bone marrow signal is within normal limits. Paranasal sinuses and mastoid air cells: No significant paranasal sinus disease. Visualized orbits: Orbital contents are intact. IMPRESSION: No evidence of intracranial mass, acute/subacute infarct, or abnormal enhancement. No findings to sug gest idiopathic intracranial hypertension. [facility], , 02/23/2024 9:43 AM
== END | disposition home or self-care (01) ==
LOC: RADMRIMAIN 20:15
PROVIDERS: ATTEND Ophthalmology
DX: H47.333 Pseudopapilledema of optic disc, bilateral (principal); G44.219 Episodic tension-type headache, not intractable; G93.2 Benign intracranial hypertension
CPT/HCPCS: 70553; A9585

== ENCOUNTER 2024-08-16 12:48 | Emergency (ER) | payer OTHER ==
--- NOTE | 2024-08-16 13:16 | ED ---
Allergic Reaction HPI - General Chief complaint: Allergic Reaction Stated complaint: Allergic reaction Time Seen by Provider: 08/16/24 13:16 Source: patient, RN notes reviewed Mode of arrival: ambulatory Limitations: no limitations - History of Present Illness Initial Comments: 33-year-old female presented to ER for evaluation of allergic reaction. Patient states that she was at work today cutting up a banana wearing gloves when she started to feel extremely itchy. She started to also feel a sore throat stating she wants to ""claw her throat out". 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 Patient did take 50 mg of Benadryl at 11:30 AM. She is still experiencing itchy throat and full body. She denies any rash. Patient denies any difficulty breat finesse, throat, tongue, oropharynx or lip swelling. - Related Data Home Medications Medication Instructions Recorded Confirmed Albuterol Inhaler [Ventolin Hfa 1 puff INHALATION RT-Q4H PRN 01/22/24 01/22/24 Inhaler] Ascorbic Acid [Vitamin C] 500 mg PO DAILY 01/22/24 01/22/24 Carboxymethylcellulose Sodium 2 drops BOTH EYES BID PRN 01/22/24 01/22/24 [Refresh Tears] Cholecalciferol (Vitamin D3) 50 mcg PO DAILY 01/22/24 01/22/24 [Vitamin D3 (50 Mcg = 2000 Iu)] Dicyclomine [Bentyl] 10 mg PO TID 01/22/24 01/22/24 Escitalopram [Lexapro] 20 mg PO DAILY 01/22/24 01/22/24 Folate 666mcg 666 mcg PO DAILY 01/22/24 01/22/24 Ibuprofen [Motrin] 800 mg PO Q6HR PRN 01/22/24 01/22/24 Meclizine [Antivert] 25 mg PO BID 01/22/24 01/22/24 Super B Complex 1 tab PO DAILY 01/22/24 01/22/24 amLODIPine [Norvasc] 2.5 mg PO DAILY 01/22/24 01/22/24 busPIRone HCl [Buspar] 10 mg PO TID 01/22/24 01/22/24 hydrOXYzine pamoate [Vistaril] 50 mg PO HS 01/22/24 01/22/24 lamoTRIgine 200 mg PO DAILY 01/22/24 01/22/24 lisinopriL [Zestril] 10 mg PO DAILY 01/22/24 01/22/24 traZODone HCL [Desyrel] 200 mg PO HS 01/22/24 01/22/24 Previous Rx's Medication Instructions Recorded hydroCHLOROthiazide [Hydrodiuril] 12.5 mg PO DAILY 30 Days #30 cap 03/24/19 EPINEPHrine (Auto Inject) [Epipen] 0.3 mg IM ONCE PRN #1 each 08/16/24 Allergies Allergy/AdvReac Type Severity Reaction Status Date / Time banana Allergy Rash/Hives Verified 08/16/24 12:54 betaine [Betaine] Allergy Contact Verified 03/21/24 17:12 Blisters chlorhexidine Allergy Contact Verified 03/21/24 17:12 [From Hibiclens] Blisters gluten Allergy Nausea & Verified 03/21/24 17:12 Vomiting & Diarrhea Iodinated Contrast Media Allergy Rash/Hives Verified 03/21/24 17:12 latex Allergy CONTACT Verified 03/21/24 17:12 BLISTERS sutures Allergy Rash/Hives Uncoded 03/21/24 17:12 tape Allergy Rash/Hives Uncoded 03/21/24 17:12 Review of Systems ROS Statement: Those systems with pertinent positive or pertinent negative responses have been documented in the HPI. ROS Other: All systems not noted in ROS Statement are negative. Past Medical History Past Medical History: Asthma, Hypertension, Thyroid Disorder Additional Past Medical History / Comment(s): severe chronic diarrhea for past several years, alan's palsy History of Any Multi-Drug Resistant Organisms: None Reported Past Surgical History: Appendectomy, Cholecystectomy, Ear Surgery, Hysterectomy Additional Past Surgical History / Comment(s): fistula removed rt ear, umbilical reconstruction r/t non healing surgical wound Past Anesthesia/Blood Transfusion Reactions: No Reported Reaction Past Psychological History: Anxiety, Bipolar, Depression Smoking Status: Former smoker Past Alcohol Use History: Occasional Past Drug Use History: Marijuana General Exam Limitations: no limitations General appearance: alert, in no apparent distress ENT exam: Present: normal exam, normal oropharynx, mucous membranes moist Respiratory exam: Present: normal lung sounds bilaterally. Absent: respiratory distress, wheezes, rales, rhonchi, stridor Cardiovascular Exam: Present: regular rate, normal rhythm, normal heart sounds. Absent: systolic murmur, diastolic murmur, rubs, gallop, clicks Neurological exam: Present: alert, oriented X3, CN II-XII intact Skin exam: Present: warm, dry, intact, normal color. Absent: rash Course Vital Signs 08/16/24 08/16/24 08/16/24 12:51 13:30 14:35 Temperature 98.3 F Pulse Rate 82 75 Respiratory 16 18 18 Rate Blood Pressure 139/94 146/84 O2 Sat by Pulse 97 96 Oximetry 08/16/24 08/16/24 08/16/24 14:59 15:14 15:34 Temperature 98.2 F Pulse Rate 66 78 80 Respiratory 16 16 16 Rate Blood Pressure 132/87 O2 Sat by Pulse 98 Oximetry Medical Decision Making - Medical Decision Making Was pt. sent in by a medical professional or institution ([facility], [facility], urgent care, hospital, or assisted...) When possible be specific @ -No Did you speak to anyone other than the patient for history (EMS, parent, family, police, friend...)? What history was obtained from this source @ -No Did you review nursing and triage notes (agree or disagree)? Why? @ -I reviewed and agree with nursing and triage notes Were old charts reviewed (outside hosp., previous admission, EMS record, old EKG, old radiological studies, urgent care reports/EKG's, assisted records)? Report findings @ -Prior medical records Differential Diagnosis (chest pain, altered mental status, abdominal pain women, abdominal pain men, vaginal bleeding, weakness, fever, dyspnea, syncope, headache, dizziness, GI bleed, back pain, seizure, CVA, palpatations, mental health, musculoskeletal)? @ -Anaphylaxis, allergic reaction, rash... This was noted to be on close of EKG interpreted by me (3pts min.). @ -None done X-rays interpreted by me (1pt min.). @ -None done CT interpreted by me (1pt min.). @ -None done U/S interpreted by me (1pt. min.). @ -None done What testing was considered but not performed or refused? (CT, X-rays, U/S, labs)? Why? @ -None What meds were considered but not given or refused? Why? @ -IV Benadryl considered however not given as patient took 50 mg prior to arrival. Did you discuss the management of the patient with other professionals (professionals i.e. , PA, DOPE P[employer]ER, lab, RT, psych nurse, aids social worker, state appellate clerk, teacher, chief contract officer, wrapper caser)? Give summary @ -No Was smoking cessation discussed for >3mins.? @ -No Was critical care preformed (if so, how long)? @ -No Were there social determinants of health that impacted care today? How? (Homelessness, low income, unemployed, alcoholism, drug addiction, transportation, low edu. Level, literacy, decrease access to med. care, fpc, rehab)? @ -No Was there de-escalation of care discussed even if they declined (Discuss DNR or withdrawal of care, Hospice)? DNR status @ -No What co-morbidities impacted this encounter? (DM, HTN, Smoking, COPD, CAD, Cancer, CVA, ARF, Chemo, Hep., AIDS, mental health diagnosis, sleep apnea, morbid obesity)? @ -Numerous allergies, asthma Was patient admitted / discharged? Hospital course, mention meds given and route, prescriptions, significant lab abnormalities, going to OR and other pertinent info. @ -Discharge. 33-year-old female presented to ER for evaluation of allergic reaction. Upon my examination vital signs stable. Patient no signs of acute distress nontoxic-appearing. Patient tolerating oral secretions and supporting own airway. There is no tongue, oropharynx or lip edema. As patient took 50 mg of Benadryl prior to arrival patient will be provided with IV Solu-Medrol and Pepcid along with IV fluids. Upon reevaluation, patient requesting DuoNeb nebulizer treatment for asthma, this was provided. Patient remained stable throughout emergency department stay and reported improvement of presenting symptoms after medication.. Patient will be discharged stable condition advised to continue Benadryl. EpiPen prescribed. Strict return parameters discussed. Patient discharged stable condition. Patient verbally expressed understanding agree with care plan. Case discussed with ED attending by Dr. Emmanuel. Undiagnosed new problem with uncertain prognosis? @ -No Drug Therapy requiring intensive monitoring for toxicity (Heparin, Nitro, Insulin, Cardizem)? @ -No Were any procedures done? @ -No Diagnosis/symptom? @ -Allergic reaction Acute, or Chronic, or Acute on Chronic? @ -Acute Uncomplicated (without systemic symptoms) or Complicated (systemic symptoms)? @ -Uncomplicated Side effects of treatment? @ -No Exacerbation, Progression, or Severe Exacerbation? @ -No Poses a threat to life or bodily function? How? (Chest pain, [place], [place], pneumonia, PE, COPD, DKA, ARF, appy, cholecystitis, CVA, Diverticulitis, Homicidal, Suicidal, threat to staff... and all critical care pts) @ -Possibly allergic reaction can lead to anaphylaxis. Disposition Clinical Impression: Allergic reaction Disposition: HOME SELF-CARE Condition: Stable Instructions (If sedation given, give patient instructions): Anaphylaxis (ED) Additional Instructions: Take Benadryl every 6 hours for the next 24 hours. EpiPen has been sent to your pharmacy. Follow-up closely with PCP. Return to the ER for any new or wors ening concerns. Prescriptions: EPINEPHrine (Auto Inject) [Epipen] 0.3 mg IM ONCE PRN #1 each PRN Reason: Anaphylaxis Is patient prescribed a controlled substance at d/c from ED?: No Referrals: Sandi Bustillos MD [Primary Care Provider] - 1-2 days Time of Disposition: 15:20
[2024-08-16] MEDS: methylPREDNISolone SOD SUCCI 125 MG/2 ML VIAL IV STA (13:28)
[2024-08-16] MEDS: SODIUM CHLORIDE 0.9% 500 ML 500 ML IV ONE (13:28)
[2024-08-16] MEDS: FAMOTIDINE 20 MG/2 ML VIAL IV STA (13:29)
[2024-08-16] MEDS: IPRATROPIUM-ALBUTEROL 3 ML NEB INHALATION STA (14:59)
[2024-08-16 15:07] VITALS: RESP 16
[2024-08-16 15:35] VITALS: BP 132/87; PULSE 80; TEMP 98.2
== END 2024-08-16 15:35 | disposition home or self-care (01) ==
LOC: EC 12:48
DX: T78.40XA Allergy, unspecified, initial encounter (principal); J45.909 Unspecified asthma, uncomplicated; Z87.891 Personal history of nicotine dependence; Z91.09 Other allergy status, other than to drugs and biological substances; Z91.018 Allergy to other foods; Z91.040 Latex allergy status; Z91.041 Radiographic dye allergy status; Z88.8 Allergy status to other drugs, medicaments and biological substances
CPT/HCPCS: 99283; 94640; 96374; 96375; 96361; J2919; J1308